=== PATIENT | female | born 1950 ===

== ENCOUNTER 2023-12-31 03:51 | Outpatient (RCR) | payer MEDICARE, OTHER, SELFPAY ==
--- OUTSIDE RECORDS SUMMARY | 2023-12-15 01:33 | XMS_ITS | Encounter Summary ---
Author [place] [address] Care Team Providers Care Mason Tender Name Role Phone Betzaida Avila MD Primary Care Provider +1 [phone] Reason for Referral * Consultation (Urgent) - Closed Specialty Diagnoses / Procedures Referred By Contac t Referred To Contact Hematology and Oncology Diagnoses Primary adenocarcinoma of ampulla of VatLoren Huerta MD [facility] [place] [address] [facility] [place] [address] [place] [address] Referral ID Status Reason Start Date Expiration Date V isits Requested Visits Authorized [id number] Closed Consult, Test & Treat 11/07/2023 11/06/2024 1 1 * Consultation (Urgent) - Closed Specialty Diagnoses / Procedures Referred By Contac t Referred To Contact General Surgery Diagnoses Primary adenocarcinoma of ampulla of VatLoren Huerta MD [facility] [place] [address] [facility] [address] [place] [address] Referral ID Status Reason Start Date Expiration Date V isits Requested Visits Authorized [id number] Closed Consult, Test & Treat 11/07/2023 11/06/2024 1 1 Encounter Details Date Type Department Care Team (Late st Contact Info) Description 11/07/2023 Telephone Gastroenterology at [facility] [place] [address] Loren Vallejo MD [facility] [place] [address] Social History Tobacco Use Types Packs/Day Years Used Date Smoking Tobacco: Former Cigarettes 1 10 Smokeless Tobacco: Never Alcohol Use Standard Drinks/Week Comments Yes 3 (1 standard drink = 0.6 oz pur e alcohol) 3 glasses daily Sex and Gender Information Value Date Recorded Sex Assigned at Not on file Gender Identity Not on file Sexual Orientation Not on file documented as of this encounter Miscellaneous Notes * Telephone Encounter - Loren Vallejo MD - 11/07/2023 10:09 AM EDT Called patient about patient's lymph node biopsies showing adenomacarinoma, 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 Discussed diagnosis, and will refer to surgery, heme onc, and plan to discuss in tumor board. All questions answered. documented in this encounter Plan of Treatment Upcoming Encounters Date Type Department Care Team (Late st Contact Info) Description 12/15/2023 9:00 AM EDT Infusion Hematology Oncology at [address] [phone] 12/26/2023 3:45 PM EDT Office Visit Dermatology at [place] [address] [place] [phone] Francesco Chen MD [address] [place] [address] 12/29/2023 11:30 AM EDT Office Visit Hematology/Oncology at [address] [phone] Yousif Garcia MD [facility] [place] [address] Julianna Cartwright APRN [address] [place] [address] DR HEMATOLOGY AND ONCOLOGY [place], [place] [address] 12/29/2023 12:00 PM EDT Infusion Hematology Oncology at [address] [phone] Scheduled Referrals Name Type Priority Associated Diagnoses Orde r Schedule Referral to General Surgery Outpatient Referral Urgent Primary adenocarcinoma of ampulla of Vater Ordered: 11/07/2023 Referral to Hematology and Oncology Outpatient Referral Urgent Primary adenocarcinoma of ampulla of Vater Ordered: 11/07/2023 documented as of this encounter Visit Diagnoses Diagnosis Primary adenocarcinoma of ampulla of Vater documented in this encounter Care Teams Mason Tender Relationship Specialty Start Date End Date Betzaida Avila MD [address] [place] [address] PCP - General Family Medicine 11/30/21 documented as of this encounter
--- OUTSIDE RECORDS SUMMARY | 2023-12-15 01:33 | XMS_ITS | Encounter Summary ---
[place] [address] Care Team Providers Care Buzzsaw Operator Name Role Phone Betzaida Avila MD Primary Care Provider [phone] [phone] Reason for Referral * Diagnostic Test (Routine) - Closed Specialty Diagnoses / Procedures Referred By Elisha fishman Referred To Contact Radiology Diagnoses Neoplasm of ampulla Procedures CT Chest wo Contrast (Generic) Fadi Willson MD [facility] [place] [address] [facility] [place] [address] Referral ID Status Reason Start Date Expiration Date V isits Requested Visits Authorized [id number] Closed Specialty Service Requested 11/17/2023 05/16/2025 1 1 Reason for Visit * Consultation (Urgent) - Closed Specialty Diagnoses / Procedures Referred By Elisha t Referred To Contact General Surgery Diagnoses Primary adenocarcinoma of ampulla of Vater Loren Vallejo MD [facility] [place] [address] [facility] Gen Surgery [address] [place] [address] Referral ID Status Reason Start Date Expiration Date V isits Requested Visits Authorized [id number] Closed Consult, Test & Treat 11/07/2023 11/06/2024 1 1 Encounter Details Date Type Department Care Team (Late st Contact Info) Description 11/17/2023 1:00 PM EDT Office Visit General Surgery at [place] [address] Fadi Willson MD [facility] [place] [address] Neoplasm of ampulla; Malignant neoplasm of duodenum Social History Tobacco Use Types Packs/Day Years [...] on file documented as of this encounter Last Filed Vital Signs Vital Sign Reading Time Taken Comments Blood Pressure 135/84 11/17/2023 12:48 PM EDT Pulse 77 11/17/2023 12:48 PM EDT Temperature - - Respiratory Rate 14 11/17/2023 12:4 8 PM EDT Oxygen Saturation 99% 11/17/2023 12: 48 PM EDT Inhaled Oxygen Concentration - - Weight 85.6 kg (188 lb 11.2 oz) 024 12:48 PM EDT Height 167.6 cm (5' 6) 11/17/2023 12:4 8 PM EDT Body Mass Index 30.46 11/17/2023 12:48 PM EDT documented in this encounter Progress Notes * Fadi Willson MD - 11/17/2023 1:00 PM EDT Images from the original note were not included. Department of General Surgery Surgical Oncology Consultation Note CC: ampullary adenocarcinoma I am seeing Prerna Ascenciorey in consultation for ampullary adenocarcinoma, she was referred to me by Dr. Loren Vallejo. In preparation for today's visit I have reviewed the following, notes from Dr. Lee/Yoni, CT scan abdomen and pelvis 10/30/2020, MRI abdomen 11/01/2023, EUS/ERCP 11/02/2023, and pathology results. I have also ordered a CT of the chest. HPI: Prerna Perez is a 73 y.o. with significant medical comorbidities. Briefly, the patient noted darker urine some mild back pain and dizziness for which she called her PCPs office. She was encouraged to come in for labs. Ultimately the dizziness persisted and she she presented to [place] on 11/01/23. There labs were notable for a T bilirubin of 4.5, alk phos 652, AST/ALT to 199/388 as well as lipase to 395. Given this she had additional imaging including a CT scan of the abdomen and pelvis which noted a double duct sign. Given this she had a subsequent MRI which again noted dilation of the common bile duct as well as the pancreas duct. She was referred to GI for advanced endoscopy. On endoscopy she was noted to have an ulcerating mass at the ampulla with upstream bile duct and PD dilation. A biopsy of the mass as well as the lymph node was obtained which is positive for malignancy.An ERCP was also performed and a plastic stent was placed into the common bile duct. Prerna denies being jaundiced or though she does report that she noted some pruritus at her abdomen and a mild ache in her back. She denies a prior episodes of pancreatitis. Denies any unintentional weight loss. PMHx: Hypothyroidism Gout PSHx: No prior abdominal surgeries ALL: No Known Allergies MED: cholecalciferol, Vitamin D3, 25 mcg (1,000 unit) Capsule alendronate (Fosamax) 70 mg tablet allopurinoL (Zyloprim) 100 mg Tablet famotidine (Pepcid) 40 mg Tablet Euthyrox 137 mcg Tablet multivitamin Capsule Social history: Former smoker Drinks a glass of wine with dinner, has not had any EtOH since she presented to the ED in [place] Family history: Breast cancer in sister No GI malignancies ROS: As stated above, otherwise remainder of 10-point system review is negative Physical Exam: General: NAD, pleasant, conversant Pulm: non labored breathing on RA Abd: soft, nontender, nondistended Skin: warm, dry Ext: no cyanosis, cap refill <2sec Neuro: grossly intact, nonfocal MSK: 5/5 strength Imaging: CT abdomen pelvis 11/01/2023 IMPRESSION 1. Suspected ampullary lesion with resulting double ductal dilation. 2. Subcentimeter short axis peripancreatic, marc hepatis, portacaval and aortocaval lymphadenopathy. 3. Acute versus chronic cholecystitis. Clinical and serologic correlation suggested. 4. Unexpected findings: 5.2 cm cystic lesion left adnexa. 12 mm hypodense distention endometrial cavity. Nonemergent outpatient sonographic correlation suggested. I have personally reviewed the images, there is a double duct sign Pathology: Positive for malignancy Endoscopy A 2 cm hypoechoic round mass was identified endosonographically encompassing the ampulla, with upstream dilation of the bile duct and pancreatic duct. Labs: CEA 2.3 CA 19-9 33.8 Assessment and Plan: Prerna Perez is a 73 y.o. 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 Her tumor markers are in a normal range. She needs a CT chest to complete her staging and Ih[place]ayne ordered that, and it will happen later today. We discussed that if there is no evidence of metastatic disease then treatment would be a whipple procedure. I gera pictures to explain to Prerna andher sister Chelsea what this would entail. Prerna had not heard of the procedure and ask appropriate questions. Given that the pt needs additional staging and this was the first time she heard about theprocedure. I will see her next week, to discuss the CT chest findings and to review the treatment plan. This will allow Prerna to think about the implication of surgery and allow her to process our discuss and come up with questions. -CT chest later today. - f/u in clinic next week. Please excuse any typographical and/or grammatical errors, dragon dictation was used to complete this note. Fadi Willson MD, MS Surgical Oncology documented in this encounter Plan of Treatment Upcoming Encounters Date Type Department Care Team (Late st Contact Info) Description 12/15/2023 9:00 AM EDT Infusion Hematology Oncology at [address] [phone] 12/26/2023 3:45 PM EDT Office Visit Dermatology at [place] [address] [facility] [place] [address] Francesco Chen MD [address] [facility] [place] [address] 12/29/2023 11:30 AM EDT Office Visit Hematology/Oncology at [address] [phone] Yousif Garcia MD [facility] [place] [address] Julianna Cartwright APRN [address] [place] [address] DR HEMATOLOGY AND ONCOLOGY [place], [place] [id number] 12/29/2023 12:00 PM EDT Infusion Hematology Oncology at [address] [phone] documented as of this encounter Results * (ABNORMAL) Request For 2nd Read CT Abdomen & Pelvis (11/17/2023 6:46 PM EDT) [employer] WORKSTATION ID [id number] RAD Anatomical Region Laterality Modality Abdomen, Pelvis SO Impressions 11/18/2023 9:36 AM EDT 1. ??Suspected ampullary lesion with resulting double ductal dilation. 2. ??Subcentimeter short axis peripancreatic, marc hepatis, portacaval and aortocaval lymphadenopathy. 3. ??Acute versus chronic cholecystitis. Clinical and serologic correlation suggested. 4. ??Unexpected findings: 5.2 cm cystic lesion left adnexa. 12 mm hypodense distention endometrial cavity. Nonemergent outpatient sonographic correlation suggested. Thank you for letting us participate in the care of this patient. ??If you are a health care provider and have any questions regarding this report, please contact the number below. ??For patients who have questions please contact the health home care manager rn that requested your imaging first. ? Narrative 11/18/2023 9:36 AM EDT EXAMINATION: REQUEST FOR 2ND READ CT ABDOMEN AND PELVIS CLINICAL HISTORY: Pt with ampullary adenocarcinoma, staging scan; Sending Institution [facility]; Date of exam [id number]; I believe a reinterpretation of this exam may alter care of Patient. Yes D49.0, Neoplasm of unspecified behavior of digestive system TECHNIQUE: Helical CT of the abdomen and pelvis following the intravenous administration of contrast. 100 cc Isovue-300 intravenous contrast. Oral contrast was not administered. Study performed October 31, 2023 [facility]. COMPARISON: None FINDINGS: Lower chest: No nodule nor mass. No pleural effusion. Liver: Normal size and attenuation without lesions. Bile ducts: Biliary dilation. Mural enhancement. Gallbladder: Mural thickening and pericholecystic stranding. Pancreas: Central pancreatic duct dilation Spleen: Normal. Adrenals: Normal. Kidneys: Symmetric nephrograms. No collecting system dilation. Indeterminate left interpolar hypodense lesion did not show enhancement on subsequent MRI consistent with a proteinaceous or hemorrhagic cyst. Urinary Bladder: Normal. Vasculature: Normal caliber abdominal aorta. Patent renal, hepatic and portal veins. Lymph Nodes: Subcentimeter short axis peripancreatic, marc hepatis, portacaval and aortocaval lymphadenopathy. Bowel: Poorly defined minimally hyperdense fullness in the ampullary region is concerning for obstructing lesion. Diverticulosis without acuity. Peritoneum and retroperitoneum: No free fluid or loculated fluid collection. No pneumoperitoneum. No mesenteric inflammation. Abdominal wall: No muscular asymmetry Reproductive organs: 5.2 cm cystic lesion left adnexa. 12 mm hypodense distention endometrial cavity. Osseous structures: Compression deformity at T9 with central sclerosis may reflect chronicity. No suspicious osseous lesion. Resulting Agency Comment Unexpected Finding Fadi Willson MD IMG OUTSIDE INTERPRE TATION ORDERABLES * CT Chest wo Contrast (Generic) (11/17/2023 3:09 PM EDT) WORKSTATION ID [id number] RAD Anatomical Region Laterality Modality Chest Computed Tomogra phy Impressions 11/20/2023 11:32 AM EDT 1. ??Left supraclavicular lymphadenopathy 2. ??Dilated ascending aorta measuring 4 cm I have personally reviewed the image(s) and the resident's interpretation and agree with the findings, Elroy Mishra MD at 11/20/2023 11:32 AM Thank you for letting us participate in the care of this patient. ??If you are a health care provider and have any questions regarding this report, please contact the number below. ??For patients who have questions please contact the health home care manager rn that requested your imaging first. ? Narrative 11/20/2023 11:32 AM EDT EXAMINATION: CT CHEST WO CONTRAST (GENERIC) CLINICAL HISTORY: Ampullary adenocarcinoma, staging TECHNIQUE: Helical CT of the chest without intravenous contrast administration. Thin-section reconstructions as well as coronal and sagittal reformatted images were generated. COMPARISON: CT abdomen and pelvis 10/31/2023 FINDINGS: Pulmonary parenchyma: No lung nodules. Airways: No central endobronchial abnormality. Pleura: No effusion. Lymph nodes: There is a 10 mm left supraclavicular lymph node Heart and vasculature: Normal heart size. No pericardial effusion. The mid ascending aorta measures 4 cm. Upper abdomen: Partially visualized CBD stent. Skeletal structures: No suspicious osseous lesion. T9 vertebral body wedge deformity, present on comparison CT of 10/31/2023. No interval retropulsion. Procedure Note Elroy Mishra MD - 11/20/2023 EXAMINATION: CT CHEST WO CONTRAST (GENERIC) CLINICAL HISTORY: Ampullary adenocarcinoma, staging TECHNIQUE: Helical CT of the chest without intravenous contrastadministration. Thin-section reconstructions as well as coronal and sagittal reformattedimages were generated. COMPARISON: CT abdomen and pelvis 10/31/2023 FINDINGS: Pulmonary parenchyma: No lung nodules. Airways: No central endobronchial abnormality. Pleura: No effusion. Lymph nodes: There is a 10 mm left supraclavicular lymph node Heart and vasculature: Normal heart size. No pericardial effusion. Themid ascending aorta measures 4 cm. Upper abdomen: Partially visualized CBD stent. Skeletal structures: No suspicious osseous lesion. T9 vertebral bodywedge deformity, present on comparison CT of 10/31/2023. No intervalretropulsion. IMPRESSION 1. Left supraclavicular lymphadenopathy 2. Dilated ascending aorta measuring 4 cm I have personally reviewed the image(s) and the resident's interpretationand agree with the findings, Elroy Mishra MD at 11/20/2023 11:32 AM Thank you for letting us participate in the care of this patient. If youare a health care provider and have any questions regarding this report,please contact the number below. For patients who have questions please contactthe health home care manager rn that requested your imaging first. Fadi Willson MD IMG CT ORDERABLES * CEA (11/17/2023 12:29 PM EDT) Carcinoembryonic Antigen 2.3 <=3.8 ng/ml 11/17/2023 1:19 PM EDT [facility] Comment: Some smokers may have elevated CEA, generally < 5.5 ng/mL. This result was generated using a Connor Yamila immunoassay. ??Results obtained from other methods or manufacturers cannot be used interchangeably with this method. Blood VENOUS BLOOD SPECIMEN / Unknown Venipuncture / Unknown 11/17/2023 12:29 PM EDT 11/17/2023 12:29 PM EDT Fadi Willson MD CHEMISTRY ORDERABLES [facility] [place] [address] documented in this encounter Visit Diagnoses Diagnosis Neoplasm of ampulla Neoplasm of unspecified nature of digestive system Malignant neoplasm of duodenum Neoplasm of ampulla Neoplasm of unspecified nature of digestive system Neoplasm of ampulla Neoplasm of unspecified nature of digestive system documented in this encounter Care Teams Buzzsaw Operator Relationship Specialty Start Date End Date Betzaida Avila MD [address] [place] [address] PCP - General Family Medicine 11/30/21 documented as of this encounter
--- OUTSIDE RECORDS SUMMARY | 2023-12-15 01:33 | XMS_ITS | Encounter Summary ---
Author Organization [facility] [place] [address] Care Team Providers Care Broomcorn Scraper Name Role Phone Betzaida Avila MD Primary Care Provider [phone] Encounter Details Date Type Department Care Team (Latest Contact Info) Description 11/17/2023 Travel Social History Tobacco Use Types Packs/Day Years [...] on file documented as of this encounter Plan of Treatment Upcoming Encounters Date Type Department Care Team (Late st Contact Info) Description 12/15/2023 9:00 AM EDT Infusion Hematology Oncology at [address] [phone] 12/26/2023 3:45 PM EDT Office Visit Dermatology at [address] [place] [phone] Francesco Chen MD [address] [facility] [place] [address] 12/29/2023 11:30 AM EDT Office Visit Hematology/Oncology at [address] [phone] Yousif Garcia MD [facility] [place] [address] Julianna Cartwright APRN [address] [place] [address] DR HEMATOLOGY AND ONCOLOGY [place], [place] [id number] 12/29/2023 12:00 PM EDT Infusion Hematology Oncology at [address] [phone] documented as of this encounter Visit Diagnoses Not on filedocumented in this encounter Care Teams Broomcorn Scraper Relationship Specialty Start Date End Date Betzaida Avila MD [address] [place] [id number] PCP - General Family Medicine 11/30/21 documented as of this encounter
--- OUTSIDE RECORDS SUMMARY | 2023-12-15 01:33 | XMS_ITS | Encounter Summary ---
[place] [address] Care Team Providers Care Security Delivery Specialist Name Role Phone Betzaida Avila MD Primary Care Provider [phone] Reason for Referral * Diagnostic Test (Routine) - Closed Specialty Diagnoses / Procedures Referred By Contac t Referred To Contact Radiology Diagnoses Neoplasm of ampulla Procedures CT Chest wo Contrast (Generic) Fadi Willson MD [facility] [address] [facility] [place] [address] Referral ID Status Reason Start Date Expiration Date V isits Requested Visits Authorized [id number] Closed Specialty Service Requested 11/17/2023 05/16/2025 1 1 Reason for Visit * Diagnostic Test (Routine) - Closed Specialty Diagnoses / Procedures Referred By Contac t Referred To Contact Radiology Diagnoses Neoplasm of ampulla Procedures CT Chest wo Contrast (Generic) Fadi Willson MD [facility] [address] [facility] [place] [address] Referral ID Status Reason Start Date Expiration Date V isits Requested Visits Authorized [id number] Closed Specialty Service Requested 11/17/2023 05/16/2025 1 1 Encounter Details Date Type Department Care Team (Latest Contact Info) Description 11/17/2023 3:00 PM EDT - 11/17/2023 11:59 PM EDT Hospital [place] [address] Fadi Willson MD [facility] [place] [address] Neoplasm of ampulla Discharge Disposition: Home Social History Tobacco Use Types Packs/Day Years [...] on file documented as of this encounter Medications at Time of Discharge Medication Sig Dispensed Refills Start Date End Date cholecalciferol, Vitamin D3, 25 mcg (1,000 unit) Capsule Take 1,000 each by mouth daily. alendronate (Fosamax) 70 mg tablet Take 70 mg by mouth every 7 days. Take in AM with full glass of water, on an empty stomach. Do not lie down for 30 min. allopurinoL (Zyloprim) 100 mg Tablet TAKE 2 TABLETS BY MOUTH ONCE DAILY FOR GOUT PREVENTION 09/18/2019 famotidine (Pepcid) 40 mg Tablet Take 20 mg by mouth 2 times daily. 09/20/2019 Euthyrox 137 mcg Tablet TAKE 1 TABLET BY MOUTH ONCE DAILY FOR THYROID 11/04/2019 multivitamin Capsule Take 1 capsule by mouth three times a week (Mon, Weds, Fri). documented as of this encounter Plan of Treatment Upcoming Encounters Date Type Department Care Team (Late st Contact Info) Description 12/15/2023 9:00 AM EDT Infusion Hematology Oncology at [address] [phone] 12/26/2023 3:45 PM EDT Office Visit Dermatology at [place] [address] [facility] [place] [address] Francesco Chen MD [address] [place] [address] 12/29/2023 11:30 AM EDT Office Visit Hematology/Oncology at [address] [phone] Yousif Garcia MD [facility] [place] [address] Julianna Cartwright APRN [address] [place] [address] DR HEMATOLOGY AND ONCOLOGY [place], [place] [id number] 12/29/2023 12:00 PM EDT Infusion Hematology Oncology at [address] [phone] documented as of this encounter Procedures Procedure Name Priority Date/Time Associated Diagnosis Comments CT CHEST WO CONTRAST (GENERIC) Routine 11/17/2023 3:09 PM EDT Neoplasm of ampulla documented in this encounter Results * CT Chest wo Contrast (Generic) (11/17/2023 3:09 PM EDT) [employer] WORKSTATION ID [id number] RAD Anatomical Region Laterality Modality Chest Computed [...] who have questions please contact the health behavioral health care manager that requested your imaging first. ? Narrative [...] patients who have questions please contactthe health behavioral health care manager that requested your imaging first. Fadi Willson MD IMG CT ORDERABLES documented in this encounter Visit Diagnoses Diagnosis Neoplasm of ampulla Neoplasm of unspecified nature of digestive system documented in this encounter Care Teams Security Delivery Specialist Relationship Specialty Start Date End Date Betzaida Avila MD [address] [place] [address] PCP - General Family Medicine 11/30/21 documented as of this encounter
--- OUTSIDE RECORDS SUMMARY | 2023-12-15 01:33 | XMS_ITS | Clinical Summary ---
Author Organization [facility] Address [facility] [place] [address] Care Team Providers Care Chief Nurse Executive Name Role Phone Betzaida Avila MD Primary Care Provider [phone] Allergies No known active allergies Medications Medication Sig Dispensed Refills Start Date End Date Status multivitamin Capsule Take 1 capsule by mouth three times a week (Mon, Weds, Fri). Active allopurinoL (Zyloprim) 100 mg Tablet TAKE 2 TABLETS BY MOUTH ONCE DAILY FOR GOUT PREVENTION 09/18/2019 Active famotidine (Pepcid) 40 mg Tablet Take 20 mg by mouth 2 times daily. 09/20/2019 Active Euthyrox 137 mcg Tablet TAKE 1 TABLET BY MOUTH ONCE DAILY FOR THYROID 11/04/2019 Active cholecalciferol, Vitamin D3, 25 mcg (1,000 unit) Capsule Take 1,000 each by mouth daily. Active alendronate (Fosamax) 70 mg tablet Take 70 mg by mouth every 7 days. Take in AM with full glass of water, on an empty stomach. Do not lie down for 30 min. Active prochlorperazine (Compazine) 10 mg tabletIndications:Pr imary adenocarcinoma of ampulla of Vater,Drug-induced nausea and vomiting Take 1 tablet by mouth every 6 hours as needed for Nausea. 20 tablet 5 12/12/2023 Active ondansetron (Zofran) 8 mg tabletIndications:Pr imary adenocarcinoma of ampulla of Vater,Drug-induced nausea and vomiting Take 1 tablet by mouth every 8 hours as needed for Nausea. Do not take for 3 days after chemotherapy 20 tablet 3 12/12/2023 Active Active Problems Problem Noted Date Diagnosed Date Metastatic adenocarcinoma 12/12/2023 Chest pain 04/25/2014 Diverticulosis of both small and large intestine without perforation or abscess without bleeding 04/25/2014 Gout, unspecified 04/25/2014 Osteopenia 04/25/2014 Hypothyroidism 04/25/2014 Primary adenocarcinoma of ampulla of Vater Encounters Date Type Department Care Team Description 12/15/2023 9:00 AM EDT Infusion Hematology Oncology at [address] [phone] 12/13/2023 Refill Hemat[place] [address] Chery Stahl RN 12/12/2023 11:00 AM EDT Office Visit Hemat[place] [phone] Yousif Garcia MD Primary adenocarcinoma of ampulla of Vater; Drug-induced nausea and vomiting 12/12/2023 10:00 AM EDT Office [place] [phone] Fadi Willson MD Metastatic adenocarcinoma; Primary adenocarcinoma of ampulla of Vater 12/12/2023 Travel 12/08/2023 12:56 PM EDT - 12/08/2023 11:59 PM EDT Hospital Encounter [place] [phone] Luis Rosas MD Arrived Discharge Disposition: Home 12/08/2023 12:17 PM EDT - 12/08/2023 12:55 PM EDT Hospital Encounter [place] [phone] Luis Rosas MD Ampullary carcinoma Discharge Disposition: Home 12/08/2023 9:28 AM EDT - 12/08/2023 12:16 PM EDT Hospital [place] [address] Luis Rosas MD Ampullary carcinoma Discharge Disposition: Home 12/08/2023 Travel 12/07/2023 Orders Only Hematology [place] [address] Yousif Garcia MD 12/06/2023 Notes Only Hematology and Oncology at [place] [phone] Alee Connelly, [facility] 11/29/2023 9:00 AM EDT Telephone Hematology [place] [address] Мария Murphy, RD 11/28/2023 1:00 PM EDT TH Visit (TeleHealth) General Surgery at [place] [phone] Fadi Willson MD Ampullary carcinoma 11/28/2023 Orders Only Hematology [place] [address] Luis Rosas MD Ampullary carcinoma 11/28/2023 Orders Only [place]emat[place] [address] Luis Rosas MD Ampullary carcinoma 11/24/2023 12:20 PM EDT Office [place] [address] Naheed Garcia MD Left cervical lymphadenopathy 11/24/2023 11:55 AM EDT Laboratory Appointment Lab [address] [address] Ampullary carcinoma 11/24/2023 Travel 11/22/2023 Orders Only [place]emat[place] [address] Luis Rosas MD Ampullary carcinoma 11/21/2023 9:30 AM EDT Office [place] [address] Fadi Willson MD Primary adenocarcinoma of ampulla of Vater 11/21/2023 Travel 11/17/2023 7:00 PM EDT Ancillary Procedure Radiology Library at [facility] [place] [address] Fadi Willson MD Neoplasm of ampulla 11/17/2023 3:00 PM EDT - 11/17/2023 11:59 PM EDT Hospital Encounter CT Scan at [place] [phone] Fadi Willson MD Neoplasm of ampulla Discharge Disposition: Home 11/17/2023 1:00 PM EDT Office Visit General Surgery at [place] [phone] Fadi Willson MD Neoplasm of ampulla; Malignant neoplasm of duodenum 11/17/2023 12:23 PM EDT - 11/17/2023 2:59 PM EDT Hospital Encounter Hematology and Oncology at [place] [phone] Ampullary carcinoma; Neoplasm of ampulla; Malignant neoplasm of duodenum Discharge Disposition: Home 11/17/2023 11:00 AM EDT Office Visit H[place] [address] Luis Rosas MD Ampullary carcinoma 11/17/2023 10:00 AM EDT Ancillary Procedure Radiology Library at [facility] [place] [address] Luis Rosas MD Ampullary carcinoma 11/17/2023 Travel 11/07/2023 Telephone Gastroenterology at [place] [phone] Loren Vallejo MD 11/02/2023 1:09 PM EDT Anesthesia Event Gastroenterology at [place] [phone] Isma Espinoza MD 11/02/2023 1:00 PM EDT - 11/02/2023 2:30 PM EDT Surgery Gastroenterology at [place] [phone] Ferdinand Lee MD UPPER EUS- ENDOSCOPIC ULTRASOUND (WRVU 3.47) 11/02/2023 12:15 PM EDT Ancillary Procedure Gastroenterology at [facility] [place] [address] 11/02/2023 11:56 AM EDT - 11/02/2023 3:44 PM EDT Hospital Encounter Gastroenterology at [facility] [place] [address] Ferdinand Lee MD Discharge Disposition: Home 11/02/2023 Notes Only Gastroenterology at [facility] [place] [address] Loren Vasquez 11/01/2023 11:45 AM EDT Ancillary Procedure Radiology Library at [facility] [place] [address] Unknown 11/01/2023 Tele[place] [address] Kathy Pena MD 11/01/2023 Interpretation Only Radiology Library at [facility] [place] [address] Unknown 10/31/2023 9:15 PM EDT Ancillary Procedure Radiology Library at [facility] [place] [address] Unknown 10/31/2023 Interpretation Only Radiology Library at [facility] [place] [address] Unknown from Last 3 Months Family History Medical History Relation Comments Mental Illness Brother Coronary Artery Disease Father Coronary Artery Disease Mother Dementia Mother Diabetes Mother Glaucoma Mother Alcohol Use Disorder Sister 1 Breast Cancer Sister 2 Relation Status Comments Brother Father Mother Alive Sister 1 Sister 2 Alive Sister 3 Alive Social History Tobacco Use Types Packs/Day Years Used Date Smoking Tobacco: Former Cigarettes 1 10 Smokeless Tobacco: Never Tobacco Cessation:Counseling Given: Not Answered Alcohol Use Standard Drinks/Week Comments Not Currently 0 (1 standard drink = 0.6 oz pur e alcohol) Sex and Gender Information Value Date Recorded Sex Assigned at Not on file Gender Identity Not on file Sexual Orientation Not on file Last Filed Vital Signs Vital Sign Reading Time Taken Comments Blood Pressure 126/86 12/12/2023 10:45 AM EDT Pulse 85 12/12/2023 10:45 AM EDT Temperature 36.7 ??C (98.1 ??F) 12/12/2023 10:45 AM E DT Respiratory Rate 17 12/12/2023 10:45 AM EDT Oxygen Saturation 97% 12/12/2023 10:45 AM EDT Inhaled Oxygen Concentration - - Weight 83.5 kg (184 lb 1.4 oz) 12/12/2023 10:45 AM EDT Height 167 cm (5' 5.75) 12/12/2023 10:45 AM EDT Body Mass Index 29.94 12/12/2023 10:45 AM EDT Plan of Treatment Upcoming Encounters Date Type Department Care Team (Late st Contact Info) Description 12/15/2023 9:00 AM EDT Infusion Hematology Oncology at [address] [phone] 12/26/2023 3:45 PM EDT Office Visit Dermatology at [address] [place] [address] Francesco Chen MD [address] [place] [address], [place] [address] 12/29/2023 11:30 AM EDT Office Visit Hematology/Oncology at [address] [phone] Yousif Garcia MD [facility] [place] [address] Julianna Cartwright APRN [address] [place] [address] DR HEMATOLOGY AND ONCOLOGY [place], [place] [address] 12/29/2023 12:00 PM EDT Infusion Hematology Oncology at [address] [phone] Health Maintenance Due Date Last Done Comments CT Colonography 1948 Colonoscopy 1948 Colorectal Cancer Screening 1948 FIT DNA 1948 FIT 1948 Sigmoidoscopy (10 year) with FIT yearly 1948 Sigmoidoscopy 1948 Hepatitis C Screening 1966 Tetanus/Diphtheria/Pertussis Vaccines (1 - Tdap) 03/08 Zoster vaccine (1 of 2) 1998 Advance Directive 2003 Bone Density Scan 2013 Pneumoccocal Vaccine: 65+ (1 of 1 - PCV) 2013 Covid-19 Vaccine (1 - 2022-24 season) 2023 Influenza (Flu) vaccine (1 o f 1 - Influenza standard series) 11/12/2023 Medical Devices Implanted Type Area Silverware Etcher Device Identifier Shelf Expiration Date Model / Serial / Lot Stent Advanix [id number] Rx Plastic Duodenal Bend ([id number]) - [id number] Implanted:Qty: 1 on 11/02/2023 by Ferdinand Lee MD [facility] IMPLANTS N/A: Bile Duct Narrable - myGreek [id number] 09/04/2024 [id number] / / [id number] Port Infusion 8fr Cath Power Injectable Midsize Shaped ([id number])-12/07 Implanted:Qty: 1 on 12/08/2023 by Christian Lara PA IMPLANTS Right: Chest Wall [employer] - [employer] [place] 12/07/2028 [id number] / [id number] / [id number] Description:RIGHT 8FR MID PO RT Procedures Procedure Name Priority Date/Time Associated Diagnosis Comments NM PET CT SKULL BASE TO MID-THIGH ([facility]) Routine 12/08/2023 1:22 PM EDT Ampullary carcinoma POC, GLUCOSE Routine 12/08/2023 11:56 AM EDT IR MEDIPORT PLACEMENT Routine 12/08/2023 11:36 AM EDT Ampullary carcinoma CYTOLOGY FNA OTHER THAN THYROID Routine 11/24/2023 12:52 PM EDT Left cervical lymphadenopathy CYTOLOGY FNA Routine 11/24/2023 12:52 PM EDT Left cervical lymphadenopathy PGX ONCOLOGY Routine 11/24/2023 10:53 AM EDT Ampullary carcinoma REQUEST FOR 2ND READ CT ABDOMEN AND PELVIS Routine 11/17/2023 6:46 PM EDT Neoplasm of ampulla CT CHEST WO CONTRAST (GENERIC) Routine 11/17/2023 3:09 PM EDT Neoplasm of ampulla CEA Add-On 11/17/2023 12:29 PM EDT Neoplasm of ampulla Malignant neoplasm of duodenum CARBOHYDRATE ANTIGEN 19-9 Routine 11/17/2023 12:29 PM EDT Ampullary carcinoma COMPREHENSIVE METABOLIC PANEL Routine 11/17/2023 12:29 PM EDT Ampullary carcinoma CBC (WITH DIFF) Routine 11/17/2023 12:29 PM EDT Ampullary carcinoma REQUEST FOR 2ND READ MR ABDOMEN Routine 11/17/2023 9:59 AM EDT Ampullary carcinoma XR ERCP Routine 11/02/2023 3:02 PM EDT SURGICAL PATHOLOGY Routine 11/02/2023 2: 34 PM EDT CYTOLOGY FNA OTHER THAN THYROID Routine 11/02/2023 2:16 PM EDT CYTOLOGY FNA Routine 11/02/2023 2:16 PM EDT Upper Gi Endoscopy, Biopsy ([id number]) 11/02/2023 1:37 PM EDT Jaundice, dilated bile duct bacl and forth Njx Cholangio Prq W/Img Gid Rs&I New Access ([id number]) 11/02/2023 1:37 PM EDT Jaundice, dilated bile duct bacl and forth Ercp, Sphincterotomy ([id number]) 11/02/2023 1:37 PM EDT Jaundice, dilated bile duct bacl and forth Ercp Stent Placement Biliary Or Pancreatic Duct([id number]) 11/02/2023 1:37 PM EDT Jaundice, dilated bile duct bacl and forth Fine Needle Aspiration Bx W/Us Gdn 1St Lesion (04156) 11/02/2023 1:37 PM EDT Jaundice, dilated bile duct bacl and forth Ercp, Diagnostic ([id number]) 11/02/2023 1:37 PM EDT Jaundice, dilated bile duct bacl and forth Endoscopic Us Exam, Esoph ([id number]) 11/02/2023 1:37 PM EDT Jaundice, dilated bile duct bacl and forth ERCP Routine 11/02/2023 1:08 PM EDT UPPER EUS-ENDOSCOPIC ULTRASOUND Routine 11/02/2023 12:56 PM EDT FILM LIBRARY STORAGE ONLY MR ABDOMEN Routine 11/01/2023 11:45 AM EDT FILM LIBRARY STORAGE ONLY CT ABDOMEN AND PELVIS Routine 10/31/2023 9:15 PM EDT from Last 3 Months Results * NM PET CT Skull Base to Mid-thigh (12/08/2023 1:22 PM EDT) WORKSTATION ID [id number] DH RAD Anatomical Region Laterality Modality Positron Emissio n Tomography (PET) Impressions 12/12/2023 9:53 AM EDT 1. ??FDG avid ampullary malignancy. 2. ??Aortocaval and precaval raul metastases. 3. ??Biopsy-proven left supraclavicular raul metastasis. 4. ??Multiple small FDG avid bilateral level 1B and level 2 lymph nodes which are favored benign reactive nodes. Additional small raul metastases cannot be excluded. Attention on follow-up recommended 5. ??Left ovarian 4.8 cm cystic lesion. Based on patient age and lesion size, consider further characterization with transvaginal ultrasound. I have personally reviewed the image(s) and the resident's interpretation and agree with the findings, Cy Roberts MD at 12/12/2023 9:53 AM Thank you for letting us participate in the care of this patient. ??If you are a health care provider and have any questions regarding this report, please contact the number below. ??For patients who have questions please contact the health nurse wound care that requested your imaging first. ? Electronically signed by: Cy Roberts MD, [facility] ([phone]), at 12/12/2023 9:53 AM Narrative 12/12/2023 9:53 AM EDT EXAMINATION: NM PET CT STANDARD SKULL BASE TO MID-THIGH CLINICAL HISTORY: Ampullary carcinoma with one proven metastasis (left supraclavicular lymph node, an ultrasound-guided biopsy 11/24/2023). ??Is this oligometastatic disease?. Initial staging exam. C24.1, Malignant neoplasm of ampulla of Vater TECHNIQUE: Following IV injection of 49-mzelrp-8-deoxyglucose (FDG) a standard uptake of approximately 60 minutes, a noncontrast CT scan followed by a PET scan were acquired from the base of the skull to mid thighs. The noncontrast CT was used for anatomic localization and photon attenuation correction of the PET scan. Blood glucose level: 104 (mg/dL) FDG dose: 12.7 mCi COMPARISON: CT abdomen pelvis 10/31/2023. MRI abdomen 11/01/2023. CT chest 11/17/2023. FINDINGS: HEAD/NECK: FDG avid 1.7 cm left supra clavicular lymph node. Multiple small FDG avid lymph nodes in the bilateral level 1B and bilateral level 2 raul stations. CHEST: No suspicious lung nodule or adenopathy. Right chest port tip at the superior right atrium. Aortic calcifications. ABDOMEN/PELVIS: Large FDG avid soft tissue mass in the ampullary region which exerts mass effect upon the infrahepatic IVC. CBD stent in place. Multiple FDG avid precaval and aortocaval lymph nodes (images 138-175) with health and safety representative aortocaval node measuring 2.6 cm (image 147). Small hiatal hernia. Left ovarian 4.8 cm cystic lesion, present on CT of 10/31/2023 and out of the szoep-go-xctf on MRI of 11/01/2023. SKELETON/EXTREMITIES: Normal activity in all regions of the axial and visualized appendicular skeleton. Non-FDG avid T9 anterior wedge compression fracture with at least 50% height loss, unchanged from CT of 11/17/2023. Procedure Note Cy Roberts MD - 12/12/2023 EXAMINATION: NM PET CT STANDARD SKULL BASE TO MID-THIGH CLINICAL HISTORY: Ampullary carcinoma with one proven metastasis (left supraclavicular lymph node, an ultrasound-guided biopsy 11/24/2023). Isthis oligometastatic disease?. Initial staging exam. C24.1, Malignant neoplasm of ampulla of Vater TECHNIQUE: Following IV injection of 76-zwxuub-6-deoxyglucose (FDG) astandard uptake of approximately 60 minutes, a noncontrast CT scan followed by aPET scan were acquired from the base of the skull to mid thighs. The noncontrast CTwas used for anatomic localization and photon attenuation correction of thePET scan. Blood glucose level: 104 (mg/dL) FDG dose: 12.7 mCi COMPARISON: CT abdomen pelvis 10/31/2023. MRI abdomen 11/01/2023. CT chest 11/17/2023. FINDINGS: HEAD/NECK: FDG avid 1.7 cm left supra clavicular lymph node. Multiple small FDG avid lymph nodes in the bilateral level 1B andbilateral level 2 raul stations. CHEST: No suspicious lung nodule or adenopathy. Right chest port tip at the superior right atrium. Aorticcalcifications. ABDOMEN/PELVIS: Large FDG avid soft tissue mass in the ampullary region which exerts masseffect upon the infrahepatic IVC. CBD stent in place. Multiple FDG avid precaval and aortocaval lymph nodes (images 138-175)with health and safety representative aortocaval node measuring 2.6 cm (image 147). Small hiatal hernia. Left ovarian 4.8 cm cystic lesion, present on CT of 10/31/2023 and out ofthe eerut-ct-dzbo on MRI of 11/01/2023. SKELETON/EXTREMITIES: Normal activity in all regions of the axial and visualized appendicular skeleton. Non-FDG avid T9 anterior wedge compression fracture with at least 50%height loss, unchanged from CT of 11/17/2023. IMPRESSION 1. FDG avid ampullary malignancy. 2. Aortocaval and precaval raul metastases. 3. Biopsy-proven left supraclavicular raul metastasis. 4. Multiple small FDG avid bilateral level 1B and level 2 lymph nodeswhich are favored benign reactive nodes. Additional small raul metastases cannotbe excluded. Attention on follow-up recommended 5. Left ovarian 4.8 cm cystic lesion. Based on patient age and lesionsize, consider further characterization with transvaginal ultrasound. I have personally reviewed the image(s) and the resident's interpretationand agree with the findings, Cy Roberts MD at 12/12/2023 9:53 AM Thank you for letting us participate in the care of this patient. If youare a health care provider and have any questions regarding this report,please contact the number below. For patients who have questions please contactthe health nurse wound care that requested your imaging first. Luis Rosas MD IMG PET ORDERABLE S * POC, GLUCOSE (12/08/2023 11:56 AM EDT) Glucometer, POC 104 65 - 199 mg/dL 12/08/2023 11:57 AM EDT [facility] Comment:Supplemental ranges: <140 mg/dL before meals <180 mg/dL all other times of the day. Blood CAPILLARY BLOOD / Unknown 12/08/2023 11:56 AM EDT 12/08/2023 11:57 AM EDT Luis Rosas MD POINT OF CARE HERMELINDA T ORDERABLES [facility] [place] [address] * IR Mediport Placement (12/08/2023 11:36 AM EDT) Anatomical Region Laterality Modality X-Ray Angiograph y Narrative 12/08/2023 12:01 PM EDT Interventional Radiology Procedure Note Procedure: Chest port implant Indication: Ampullary carcinoma, durable alf central venous access for chemotherapy Procedure summary: 1.) Venous access with ultrasound guidance 2.) Tunneled port insertion under fluoroscopic guidance Pre-procedure: Informed consent for the procedure including risks, benefits, and alternatives was obtained. Active time-out was performed prior to the procedure. Maximum sterile barrier technique was used throughout the procedure. Sedation: None Technique: The patient's neck was sonographically evaluated for potential access sites, and the right internal jugular vein was determined to be patent. Local anesthetic was administered. The vein was accessed via real-time ultrasound and micropuncture set with 21 gauge needle and a permanent image was stored. A 0.018 wire was advanced into superior vena cava. The remainder of the procedure was performed under fluoroscopic guidance. A 4 F introducer sheath was placed and the wire exchanged for a 0.035 J wire. The wire was advanced into the inferior vena cava. Local anesthetic was administered on the anterior chest wall inferolateral to the puncture site. A 2 cm transverse incision was made in the right anterior chest wall, and with blunt dissection the port pocket was created. A trocar was then used to advance the catheter subcutaneously to the venous access site. A 4 F introducer sheath was exchanged for a peel-away sheath over the wire. The wire and inner obturator were removed and the catheter advanced into the superior vena cava under fluoroscopic guidance. The catheter was trimmed to appropriate length and attached to the port. The port was inserted into the pocket and the sheath was removed. Catheter tip location was identified and a permanent image was stored. The port flushed and aspirated well. ??The pocket was closed using a two-layer technique with 2-0 vicryl deep interrupted and 4-0 vicryl running sutures. The skin closed was with dermabond. The port was not left accessed. Medications: Lidocaine 1% 10 mL subcut; lidocaine 2% with epinephrine 1:100,000 10 mL subcut Contrast: None Fluoroscopy: 7.14 mGy Estimated blood loss: 5 mL Complications: No immediate Impression: 1.) Patent right internal jugular vessel by sonographic evaluation. 2.) Implantation of power-injectable, Medcomp Dignity Mini 8 F low profile single-lumen port in right chest with tip in the superior cavoatrial junction. The port may be used immediately. mule operator: Christian Lara PA-C Attending of record: Pb Blank MD 12/08/2023 I, Dr. Blank, was not present for this procedure. Luis Rosas MD IMG IR ORDERABLES * (ABNORMAL) Cytology FNA (11/24/2023 12:52 PM EDT) Only the most recent of2 resultswithin the time period is included. Case Report Medical Cytology Report ? Case: [id number] ? Authorizing Provider: ??Naheed Garcia MD ? Collected: ? 11/24/2023 1252 ? Ordering Location: ? General Surgery at [facility] ?Received: ?11/24/2023 1256 ? Pathologist: ? Carmela Seaman MD ? Specimen: ?Lymph Node, Cervical, Left ? 11/27/2023 2:03 PM EDT [facility] Specimen Source Lymph Node, Cervical, Left US-guided FNA 11/27/2023 2:03 PM EDT [facility] Final Diagnosis Positive for malignancy 11/27/2023 2:03 PM EDT [facility] Diagnosis Discussion Compatible with metastatic adenocarcinoma, see note. Cell block was examined. Note: The tumor morphology is similar to patient's prior surgical biopsy of ampullary mass ([id number]). 11/27/2023 2:03 PM EDT [facility] Specimen Adequacy Satisfactory for evaluation. 11/27/2023 2:03 PM EDT [facility] Clinical Information Enlarged abnormal left neck cervical lymph node - evaluate for metastatic cancer (known ampulla cancer) 11/27/2023 2:03 PM EDT [facility] Gross Description Received in CytoLyt solution , approximately 30 mL total volume of cloudy, pink fluid with light flecks. Total preparation: ThinPrep: 1 and Cell Block: 1. 11/27/2023 2:03 PM EDT [facility] Result Note THIS RESULT REQUIRES PHYSICIAN/SUPRIYA FOLLOW UP(A) 11/27/2023 2:03 PM EDT [facility] Fine Needle Aspirate CERVICAL LYMPH NODE STRUCTURE / Unknown Non Blood Collection / Unknown 11/24/2023 12:52 PM EDT 11/24/2023 12:56 PM EDT Naheed Garcia MD PATHOLOGY/CYTOLOGY O RDERABLES Performing Organization Address City/State/[facility] Co de Phone Number [facility] [place] [address] * PGx Oncology (11/24/2023 10:53 AM EDT) NGS Report Status Normal 12/05/2023 5:54 AM EDT [facility] Blood VENOUS BLOOD SPECIMEN / Unknown Venipuncture / Unknown 11/24/2023 10:53 AM EDT 11/24/2023 10:53 AM EDT Luis Rosas MD MOLECULAR ORDERAB LES [facility] [place] [address] * (ABNORMAL) Request For 2nd Read CT Abdomen & Pelvis (11/17/2023 6:46 PM EDT) WORKSTATION ID [id number] RAD Anatomical Region Laterality Modality Abdomen, Pelvis [...] who have questions please contact the health nurse wound care that requested your imaging first. ? Narrative 11/18/2023 9:36 AM EDT EXAMINATION: REQUEST FOR 2ND READ CT ABDOMEN AND PELVIS CLINICAL HISTORY: Pt with ampullary adenocarcinoma, staging scan; Sending Institution [facility]; Date of exam [id number]; I believe a reinterpretation of this exam may alter care of Patient. Yes D49.0, Neoplasm of unspecified behavior of digestive system TECHNIQUE: Helical CT of the abdomen and pelvis following the intravenous administration of contrast. 100 cc Isovue-300 intravenous contrast. Oral contrast was not administered. Study performed October 31, 2023 [facility]. COMPARISON: None FINDINGS: Lower chest: No [...] (Generic) (11/17/2023 3:09 PM EDT) WORKSTATION ID [id number] DH RAD Anatomical Region Laterality Modality Chest Computed [...] who have questions please contact the health nurse wound care that requested your imaging first. ? Electronically signed by: Elroy Mishra MD, [facility] ??([phone]), at 11/20/2023 11:32 AM Narrative 11/20/2023 11:32 AM EDT EXAMINATION: CT [...] patients who have questions please contactthe health nurse wound care that requested your imaging first. Electronically signed by: Elroy Mishra MD, [facility]([phone]), at 11/20/2023 11:32 AM Fadi Willson MD IMG CT ORDERABLES * Carbohydrate Antigen 19-9 (11/17/2023 12:29 PM EDT) Pathologist [facility] CA 19-9 33.8 <=35.0 units/mL 11/17/2023 1:19 PM EDT [facility] Comment:This result was gene rated using a Connor Yamila immunoassay. Results obtained from other methods or manufacturers cannot be used interchangeably with this method. Blood VENOUS BLOOD SPECIMEN / Unknown Venipuncture / Unknown 11/17/2023 12:29 PM EDT 11/17/2023 12:29 PM EDT Luis Rosas MD CHEMISTRY ORDERAB LES [facility] [place] [address] * (ABNORMAL) CBC (with Diff) (11/17/2023 12:29 PM EDT) White Blood Cell 4.86 4.00 - 9.50 x10(3)/mc L 11/17/2023 12:44 PM EDT [facility] Red Blood Cell 3.61(L) 4.00 - 5.21 x10(6)/mc L 11/17/2023 12:44 PM EDT [facility] Hemoglobin 12.8 11.7 - 15.5 g/dL 11/17/2023 12:44 PM [facility] Hematocrit 37.4 35.7 - 45.8 % 11/17/2023 12:44 PM [facility] Mean Cell Volume 103.6(H) 82.6 - 94.4 fL 11/17/2023 12:44 PM [facility] Mean Cell Hemoglobin 35.5(H) 27.1 - 32.0 pg 11/17/2023 12:44 PM [facility] Mean Cell Hemoglobin Concentration 34.2 31.7 - 35.0 g/dL 11/17/2023 12:44 PM [facility] Platelet 298 145 - 357 x10(3)/mc L 11/17/2023 12:44 PM [facility] Mean Platelet Volume 10.5 7.6 - 12.9 fL 11/17/2023 12:44 PM [facility] RDW Standard Deviation 49.1(H) 37.0 - 46.0 fL 11/17/2023 12:44 PM [facility] RDW coefficient of variation 12.9 11.5 - 14.1 % 11/17/2023 12:44 PM [facility] NRBC% auto 0.0 % 11/17/2023 12:44 PM [facility] NRBC Absolute 0.00 0.00 - 0.00 x10(3)/mc L 11/17/2023 12:44 PM [facility] Neutrophil % 42.4 % 11/17/2023 12:44 PM [facility] Neutrophil Absolute (ANC) - Automated 2.06 1.70 - 6.10 x10(3)/mc L 11/17/2023 12:44 PM [facility] Lymph % 42.4 % 11/17/2023 12:44 PM [facility] Lymph Absolute 2.06 0.90 - 3.20 x10(3)/mc L 11/17/2023 12:44 PM EDT [facility] Monocyte % 11.9 % 11/17/2023 12:44 PM EDT [facility] Monocyte Absolute 0.58 0.30 - 0.90 x10(3)/mc L 11/17/2023 12:44 PM EDT [facility] Eos % 1.9 % 11/17/2023 12:44 PM EDT [facility] Eos Absolute 0.09 0.00 - 0.40 x10(3)/mc L 11/17/2023 12:44 PM EDT [facility] Basophil % 1.2 % 11/17/2023 12:44 PM EDT [facility] Baso Absolute 0.06 0.00 - 0.10 x10(3)/mc L 11/17/2023 12:44 PM EDT [facility] Immature Gran % 0.2 % 12:44 PM EDT [facility] Immature Gran Absolute 0.01 0.00 - 0.04 x10(3)/mc L 11/17/2023 12:44 PM EDT [facility] Blood VENOUS BLOOD SPECIMEN / Unknown Venipuncture / Unknown 11/17/2023 12:29 PM EDT 11/17/2023 12:29 PM EDT Luis Rosas MD HEMATOLOGY ORDERA BLES [facility] [place] [address] * CEA (11/17/2023 12:29 PM EDT) Carcinoembryonic Antigen 2.3 <=3.8 ng/ml 11/17/2023 1:19 PM EDT [facility] Comment: Some smokers may have elevated CEA, generally < 5.5 ng/mL. This result was generated using a Connor Yamila immunoassay. ??Results obtained from other methods or manufacturers cannot be used interchangeably with this method. Blood VENOUS BLOOD SPECIMEN / Unknown Venipuncture / Unknown 11/17/2023 12:29 PM EDT 11/17/2023 12:29 PM EDT Fadi Willson MD CHEMISTRY ORDERABLES [facility] [place] [address] * (ABNORMAL) Comprehensive metabolic panel (11/17/2023 12:29 PM EDT) Glucose 112 65 - 199 mg/dL 11/17/2023 1:09 PM EDT [facility] Comment:Glucose Concentratio n >=200 mg/dL plus symptoms is consistent with Diabetes Mellitus. Blood Urea Nitrogen 14 8 - 18 mg/dL 11/17/2023 1:09 PM EDT [facility] Creatinine 0.90 0.70 - 1.20 mg/dL 11/17/2023 1:09 PM EDT [facility] Sodium 138 135 - 145 mMol/L 11/17/2023 1:09 PM EDT [facility] Potassium 4.1 3.5 - 5.0 mMol/L 11/17/2023 1:09 PM EDT [facility] Chloride 103 98 - 107 mMol/L 11/17/2023 1:09 PM EDT [facility] Carbon Dioxide 24 22 - 31 mMol/L 11/17/2023 1:09 PM EDT [facility] Anion Gap 11 5 - 15 mMol/L 11/17/2023 1:09 PM EDT [facility] Calcium 10.0 8.5 - 10.5 mg/dL 11/17/2023 1:09 PM EDT [facility] Protein, Total 7.1 6.1 - 8.0 g/dL 11/17/2023 1:09 PM EDT [facility] Albumin 4.4 3.2 - 5.2 g/dL 11/17/2023 1:09 PM EDT [facility] Aspartate Aminotransferase 28 <=30 unit/L 11/17/2023 1:09 PM EDT [facility] Alanine Aminotransferase 51(H) 0 - 30 unit/L 11/17/2023 1:09 PM EDT [facility] Alkaline Phosphatase 302(H) 35 - 105 unit/L 11/17/2023 1:09 PM EDT [facility] Bilirubin, Total 0.8 <=1.3 mg/dL 11/17/2023 1:09 PM EDT [facility] Est Glomerular Filtration Rate - Female 67 mL/min/1. 73 m?? 11/17/2023 1:09 PM EDT [facility] Comment: This patient's estimated GFR was calculated using the 2020 CKD-EPI equation. The estimated GFR can vary from the measured GFR by up to 30% in the absence of rapidly changing kidney function. Assessment of the estimated GFR is not appropriate when creatinine concentrations are rapidly changing. For clinical situations in which a more precise estimate of GFR is necessary, consider alternative methods of GFR estimation such as a 24-hour urine creatinine clearance. Assignment of CKD stage 1 - 5 for patients with an eGFR near the transition point between stages may be based on clinical assessment of muscle mass and symptoms in addition to eGFR. Link: eGFR Calculator [employer] Fasting Status No 11/17/2023 1:09 PM EDT [facility] Blood VENOUS BLOOD SPECIMEN / Unknown Venipuncture / Unknown 11/17/2023 12:29 PM EDT 11/17/2023 12:29 PM EDT Luis Rosas MD CHEMISTRY ORDERAB LES [facility] [place] [address] * Request for 2nd read MR Abdomen (11/17/2023 9:59 AM EDT) WORKSTATION ID [id number] RAD Anatomical Region Laterality Modality SO Impressions 11/17/2023 11:16 AM EDT 1. ??Ampullary mass in the duodenal lumen is 1.7 cm. Associated severe dilatation of the pancreatic and bile ducts. 2. ??Mild marc hepatis lymphadenopathy. Thank you for letting us participate in the care of this patient. ??If you are a health care provider and have any questions regarding this report, please contact the number below. ??For patients who have questions please contact the health nurse wound care that requested your imaging first. ? Electronically signed by: Jerson Lemon MD, [facility] ([phone]), at 11/17/2023 11:16 AM Narrative 11/17/2023 11:16 AM EDT EXAMINATION: REQUEST FOR 2ND READ MR ABDOMEN CLINICAL HISTORY: Newly diagnosed ampullary carcinoma; Date of exam 11/01/2023; I believe a reinterpretation of this exam may alter care of Patient. Yes; Newly diagnosed ampullary carcinoma; What Modality is the exam? 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 * ??MRCP included. COMPARISON: None FINDINGS: MRCP Bile ducts: Markedly dilated intrahepatic bile ducts. The CBD is dilated to 1.5 cm. No filling defects or strictures. There is an ovoid ampullary mass in the duodenal lumen best seen on series 501 image 14, 1.7 cm. This is relatively inconspicuous on all other images. Gallbladder: Trace dependent sludge on series 501. Mildly thickened greenfield measuring 0.5 cm. Pancreatic duct: Dilated to a maximum of 0.8 cm in the head. No divisum. MRI Lower chest: No significant findings Liver: Normal size and signal intensity. No lesions. Pancreas: Ductal dilatation as above. No cystic or solid mass. Spleen: Normal. Adrenals: Normal. Kidneys: Nonenhancing bilateral cysts, largest in the left interpolar region is 1.3 cm. No suspicious lesions or collecting system dilatation. Vasculature: No abdominal aortic aneurysm. Patent portal veins. Lymph nodes: Mildly enlarged portacaval lymph node is 1.3 cm short axis. Slightly enlarged common hepatic node is 1.1 cm. Bowel: No obstructive or inflammatory process. Peritoneum and mesentery: No ascites or loculated fluid collection. Marrow Signal: No suspicious marrow lesions. Procedure Note Jerson Lemon MD - 11/17/2023 EXAMINATION: REQUEST FOR 2ND READ MR ABDOMEN CLINICAL HISTORY: Newly diagnosed ampullary carcinoma; Date of exam11/01/2023; I believe a reinterpretation of this exam may alter care of Patient. Yes;Newly diagnosed ampullary carcinoma; What Modality is the exam? 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 * MRCP included. COMPARISON: None FINDINGS: MRCP Bile ducts: Markedly dilated intrahepatic bile ducts. The CBD is dilatedto 1.5 cm. No filling defects or strictures. There is an ovoid ampullary mass inthe duodenal lumen best seen on series 501 image 14, 1.7 cm. This isrelatively inconspicuous on all other images. Gallbladder: Trace dependent sludge on series 501. Mildly thickenedwalls measuring 0.5 cm. Pancreatic duct: Dilated to a maximum of 0.8 cm in the head. No divisum. MRI Lower chest: No significant findings Liver: Normal size and signal intensity. No lesions. Pancreas: Ductal dilatation as above. No cystic or solid mass. Spleen: Normal. Adrenals: Normal. Kidneys: Nonenhancing bilateral cysts, largest in the left interpolarregion is 1.3 cm. No suspicious lesions or collecting system dilatation. Vasculature: No abdominal aortic aneurysm. Patent portal veins. Lymph nodes: Mildly enlarged portacaval lymph node is 1.3 cm short axis. Slightly enlarged common hepatic node is 1.1 cm. Bowel: No obstructive or inflammatory process. Peritoneum and mesentery: No ascites or loculated fluid collection. Marrow Signal: No suspicious marrow lesions. IMPRESSION 1. Ampullary mass in the duodenal lumen is 1.7 cm. Associated severedilatation of the pancreatic and bile ducts. 2. Mild marc hepatis lymphadenopathy. Thank you for letting us participate in the care of this patient. If youare a health care provider and have any questions regarding this report,please contact the number below. For patients who have questions please contactthe health nurse wound care that requested your imaging first. Electronically signed by: Jerson Lemon MD, [facility]([phone]), at 11/17/2023 11:16 AM Luis Rosas MD IMG OUTSIDE INTER PRETATION ORDERABLES * XR ERCP (11/02/2023 3:02 PM EDT) Narrative [facility] - 11/02/2023 3:02 PM EDT See PACS for result report. Ferdinand Lee MD IMG FILM LIBRARY ORD ERABLES Performing Organization Address City/State/[facility] Co de Phone Number [place], [place] * Surgical Pathology (11/02/2023 2:34 PM EDT) Case Report Surgical Pathology Report ? Case: [id number] ? Authorizing Provider: ??Ferdinand Lee MD ? Collected: ? 11/02/2023 1434 ? Ordering Location: ? [place]astroenterology at [facility] [place] ?? Received: ?11/02/2023 1730 ? Pathologist: ? Jus Lizama MD ? Specimen: ?Ampulla ? [facility] Final Diagnosis A. Ampulla, Biopsy: - Adenocarcinoma, poorly differentiated (See Note). Note: Immunostains for MLH1, MSH2, MSH6 and PMS2 reveal intact nuclear staining in tumor cells. In a very small percentage of tumors, there may still be an underlying hereditary defect in these DNA mismatch repair genes despite intact nuclear expression of the protein in tumor cells. Genetic counseling and/or additional workup is indicated in patients with a family history that meets current criteria for Bernal syndrome screening. Cr-px 11/28/2023 2:04 PM [facility] Addendum This addendum is to report the adenocarcinoma subtype per clinician request. Immunostains for CDX2, CK20, MUC1, and MUC2 are positive. The morphology and immunoprofile are consistent with intestinal type. 11/28/2023 2:04 PM [facility] Addendum electronically signed by Richard Christianson MD on 11/28/2023 at 2:04 PM Additional Studies Whole slide scan: A1 11/28/2023 2:04 PM [facility] Disclaimer(s) Immunohistochemical assay was performed on paraffin-embedded tissue sections fixed in 10% neutral buffered formalin for 6-72 hours using the polymer system technique with appropriate controls. The assay was performed according to the passenger vessel chef's instructions using anti-MLH-1, anti-MSH-2, anti-MSH-6, and anti-PMS-2 antibodies. Formalin-fixed, paraffin-embedded tissue sections are studied using the polymer technique with appropriate positive and negative controls. These IHC studies provide the pathologist with adjunctive diagnostic information. Antibody specificity has been verified by testing antibodies on a series of in-house tissues with known immunohistochemical performance characteristics. The clinical interpretation of any antibody positive staining or its absence is evaluated within the context of clinical presentation, morphology, histopathological criteria and other diagnostic tests. 11/28/2023 2:04 PM EDT [facility] Clinical Information A. Ampulla, Mass Ampullary mass 11/28/2023 2:04 PM EDT [facility] Gross Description A. Ampulla, . Labeled/Fixative: Ampulla, formalin. Quantity/Size: Four, ranging from 0.2 to 0.4 cm. Tissue Description: Soft, vidal-pink and red tissues. Sections/Processing: Submitted in toto in 1 cassette labeled A1. 11/28/2023 2:04 PM EDT [facility] Result Note Routine 11/28/2023 2:04 PM EDT [facility] Tissue SPECIMEN FROM AMPULLA OF VATER / Unknown 11/02/2023 2:34 PM EDT 11/02/2023 5:30 PM EDT Comment:Ampullary mass Ferdinand Lee MD PATHOLOGY/CYTOLOGY O RDERANEYMAR [facility] [place] [address] * ERCP (11/02/2023 1:08 PM EDT) ERCP [facility] Endoscopy Procedure Date: 11/02/2023 1:08 PM ? Patient Name: Prerna Bro ? Date of : 1950 ? Age: 73 ? Order #: [id number] ? Instrument Name: [id number] ? Procedure: ? ERCP Indications: ? Periampullary tumor, elevated LFTs, ? bile and pancreatic duct dilation Providers: ? Ferdinand Lee MD, Loren Vallejo, ? Fanta Travis, Ricky Proctor, ? Johnie Rdz MD: ?Kannan Black Medicines: ? General Anesthesia Complications: ? No immediate complications. Procedure: ? Pre-Anesthesia Assessment: ? - Prior to the procedure, a History ? and Physical was performed, and ? patient medications, allergies and ? sensitivities were reviewed. The ? patient's tolerance of previous ? anesthesia was reviewed. ? - The risks and benefits of the ? procedure and the sedation options ? and risks were discussed with the ? patient. All questions were ? answered and informed consent was ? obtained. ? - Pre-procedure physical ? examination revealed no ? contraindications to sedation. ? - General anesthesia under the ? supervision of a WIRE TRANSFER CLERK was ? determined to be medically ? necessary for this procedure based ? on complex procedure (ERCP, EUS). ? The procedure, indications, ? benefits, risks and alternatives ? were explained to the patient. ? Specifically discussed were ? potential complications including, ? but not limited to, bleeding, ? perforation, infection, ? pancreatitis, missing a cancer, and ? adverse medication reactions.The ? Duodenoscope was introduced through ? the mouth, and advanced to the ? duodenum where it was used to ? inject contrast into and used to ? inject contrast into the dorsal and ? ventral pancreatic ducts. The ERCP ? was accomplished without ? difficulty. The patient tolerated ? the procedure well. ? Findings: ? The improvement engineer film was normal. The esophagus was ? successfully intubated under direct vision. The scope ? was advanced from the mouth to the duodenum. The ? pharynx, larynx and associated structures, as well as ? the upper GI tract, were normal. An ulcerated mass ? measuring 20 mm in diameter was found at the major ? papilla. The bile duct was deeply cannulated with the ? short-nosed traction sphincterotome. Contrast was ? injected. I personally interpreted the bile duct ? images. There was brisk flow of contrast through the ? ducts. The main bile duct was dilated, with a mass ? causing an obstruction. The largest diameter was 14 ? mm. A 4 mm biliary sphincterotomy was made with a ? traction (standard) sphincterotome using ERBE ? electrocautery. The sphincterotomy transiently oozed ? blood. One 10 Fr by 5 cm plastic stent with a single ? external flap and a single internal flap was placed ? into the common bile duct. The stent was in good ? position. The PD was briefly accessed with the guide ? wire during initial cannulation attempts but no ? contrast was injected. The ampullary mass was ? biopsied with a cold forceps for histology. ? Moderate Sedation: ? Not applicable - See Anesthesia documentation Impression: ?- The entire main bile duct was ? dilated, with an ampullary mass ? causing an obstruction. ? - A biliary sphincterotomy was ? performed. ? - One plastic stent was placed into ? the common bile duct. ? - Biopsies were performed of the ? ampullary mass. Recommendation: ?- Await path results. ? - Refer to surgical oncology. ? - The attending physician listed ? above was present for the entire ? procedure. ? Attending Participation: ? I was present and participated during the entire ? procedure, including non-ramsey portions. ? Ferdinand Lee MD 11/02/2023 3:30:19 PM This report has been signed electronically. Number of Addenda: 0 Note Initiated On: 11/02/2023 1:08 PM [facility] 11/02/2023 1:08 PM EDT Betzaida Avila MD GENERAL SURGICAL ORDERABLES [employer] * UPPER EUS-ENDOSCOPIC ULTRASOUND (11/02/2023 12:56 PM EDT) UPPER ENDOSCOPIC ULTRASOUND [facility] Endoscopy Procedure Date: 11/02/2023 12:56 PM ? Patient Name: Prerna Bro ? Date of : 1950 ? Age: 73 ? Order #: [id number] ? Instrument Name: [id number] ? Procedure: ? Upper EUS Indications: ? Common bile duct dilation ? (acquired) seen on MRCP, Dilated ? pancreatic duct on MRCP, Elevated ? liver enzymes Providers: ? Ferdinand Lee MD, Loren Vallejo, ? Fanta Travis, Ricky Proctor, ? Johnie Rdz MD: ?Betzaida Villatoro Medicines: ? General Anesthesia Complications: ? No immediate complications. Procedure: ? Pre-Anesthesia Assessment: ? - Prior to the procedure, a History ? and Physical was performed, and ? patient medications, allergies and ? sensitivities were reviewed. The ? patient's tolerance of previous ? anesthesia was reviewed. ? - The risks and benefits of the ? procedure and the sedation options ? and risks were discussed with the ? patient. All questions were ? answered and informed consent was ? obtained. ? The procedure, indications, ? benefits, risks and alternatives ? were explained to the patient. ? Specifically discussed were ? potential complications including, ? but not limited to, bleeding, ? perforation, infection, missing a ? cancer, and adverse medication ? reactions.The Endoscope was ? introduced through the mouth, and ? advanced to the second part of ? duodenum. The upper EUS was ? accomplished without difficulty. ? The patient tolerated the procedure. ? Findings: ? ENDOSCOPIC FINDING: : ? A mild Schatzki ring was found in the distal ? esophagus. ? Normal stomach. ? There is an ulcerated mass at the ampulla. ? ENDOSONOGRAPHIC FINDING: : ? The esophagus, stomach and duodenum were examined ? endosonographically. ? A 2 cm hypoechoic round mass was identified ? endosonographically encompassing the ampulla, with ? upstream dilation of the bile duct and pancreatic ? duct. ? Several lymph nodes were visualized with the ? ultrasound probe in the marc hepatis region ? measuring up to 2 cm in size. Fine needle biopsy was ? performed. Color Doppler imaging was utilized prior ? to needle puncture to confirm a lack of significant ? vascular structures within the needle path. Four ? passes were made with the 25 gauge Shark ultrasound ? biopsy needle using a transduodenal approach. A ? visible core of tissue was obtained. Results pending. ? There was dilation in the main bile duct which ? measured up to 14 mm and pancreatic duct up to 5mm. ? There was sludge in the gallbladder. ? Remainder of the pancreas appeared normal. ? The visualized portions of the liver were diffusely ? echogenic (limited exam). There were no masses or ? ductal dilation. ? Moderate Sedation: ? Not applicable - See Anesthesia documentation Impression: ?- Mild Schatzki ring. ? - An ulcerated mass was found in ? the ampulla with upstream ductal ? dilation of bile duct and ? pancreatic duct associated with ? lymphadenopathy-s/p FNA. ? - Fatty liver. ? - Gallbladder sludge. Recommendation: ?- Perform an ERCP today. ? - Await cytology results. ? - The attending physician listed ? above was present for the entire ? procedure. ? Attending Participation: ? I was present and participated during the entire ? procedure, including non-ramsey portions. ? Ferdinand Lee MD 11/02/2023 3:26:08 PM This report has been signed electronically. Number of Addenda: 0 Note Initiated On: 11/02/2023 12:56 PM [employer] 11/02/2023 12:5 6 PM EDT Kannan Humphrey MD GENERAL SURGICAL [facility] Performing Organization Address [facility] de Phone Number [employer] * Film Library- Storage Only MR Abdomen (11/01/2023 11:45 AM EDT) 11/01/2023 4:10 PM EDT Narrative [facility] - 11/01/2023 4:11 PM EDT This exam is auto-finalizing. It's purpose is for storage only. Unknown IMG FILM LIBRARY My Visual Brief Performing Organization Address [facility] de Phone Number [place], [place] * Film Library- Storage Only CT Abdomen & Pelvis (10/31/2023 9:15 PM EDT) 11/01/2023 12:2 8 AM EDT Narrative [facility] - 11/01/2023 12:28 AM EDT This exam is auto-finalizing. It's purpose is for storage only. Unknown IMG FILM LIBRARY ORD [employer]Linked Performing Organization Address [facility]/ZIP Co de Phone Number [facility] [place] [facility] Last 3 Months Advance Directives * Attempt Cardiopulmonary Resuscitation - Inpatient (Latest Code Status on File) Date Activated Date Inactivated Comments 12/08/2023 9:48 AM 12/09/2023 4:35 AM Question Answer Comments Code Status decision made by: Patient Content of discussion: full code Care Teams Chief Nurse Executive Relationship Specialty Start Date End Date Betzaida Avila MD [address] [place] [address] PCP - General Family Medicine 11/30/21
--- OUTSIDE RECORDS SUMMARY | 2023-12-15 01:33 | XMS_ITS | Encounter Summary ---
Author Organization [facility] [place] [address] Care Team Providers Care Ballet Soloist Name Role Phone Betzaida Avila MD Primary Care Provider [phone] Encounter Details Date Type Department Care Team (Latest Contact Info) Description 12/08/2023 Travel Social History Tobacco Use Types Packs/Day Years Used Date Smoking Tobacco: Former Cigarettes 1 10 Smokeless Tobacco: Never Alcohol Use Standard Drinks/Week Comments Not Currently [...] 9:00 AM EDT Infusion Hematology Oncology at [address] [phone] 12/26/2023 3:45 PM EDT Office Visit Dermatology at [address] [place] [phone] Francesco Chen MD [address] [facility], [place] [address] 12/29/2023 11:30 AM EDT Office Visit Hematology/Oncology at [address] [phone] [facility] [place] [address] Julianna Cartwright APRN [address] [place] [address] DR HEMATOLOGY AND ONCOLOGY [place], [place] [id number] 12/29/2023 12:00 PM EDT Infusion Hematology Oncology at [address] [phone] documented as of this encounter Visit Diagnoses Not on filedocumented in this encounter Care Teams Ballet Soloist Relationship Specialty Start Date End Date Betzaida Avila MD [address] [place] [address] PCP - General Family Medicine 11/30/21 documented as of this encounter
--- OUTSIDE RECORDS SUMMARY | 2023-12-15 01:33 | XMS_ITS | Encounter Summary ---
[place] [address] Care Team Providers Care Chief Telephone Operator Name Role Phone Betzaida Avila MD Primary Care Provider [phone] Reason for Visit * Diagnostic Test (Routine) - Closed Specialty Diagnoses / Procedures Referred By Elisha fishman Referred To Contact Radiology Diagnoses Ampullary carcinoma Procedures NM PET CT Skull Base to Mid-thigh Luis Rosas MD [facility] [place] [address] [place] [address] Referral ID Status Reason Start Date Expiration Date V isits Requested Visits Authorized [id number] Closed Specialty Service Requested 11/28/2023 05/27/2025 1 1 Encounter Details Date Type Department Care Team (Latest Contact Info) Description 12/08/2023 12:56 PM EDT - 12/08/2023 11:59 PM EDT Hospital Encounter [place] [address] Luis Rosas MD [facility] [place] [address] Arrived Discharge Disposition: Home Social History Tobacco Use [...] 9:00 AM EDT Infusion Hematology Oncology at [address] [phone] 12/26/2023 3:45 PM EDT Office Visit Dermatology at [address] [place] [address] Francesco Chen MD [address] [place] [address], [place] [address] 12/29/2023 11:30 AM EDT Office Visit Hematology/Oncology at [address] [phone] Yousif Garcia MD [facility] [place] [address] Julianna Cartwright APRN [address] [place] [address] DR HEMATOLOGY AND ONCOLOGY [place], [place] [address] 12/29/2023 12:00 PM EDT Infusion Hematology Oncology at [address] [phone] documented as of this encounter Procedures Procedure Name Priority Date/Time Associated Diagnosis Comments NM PET CT SKULL BASE TO MID-THIGH ([facility]) Routine 12/08/2023 1:22 PM EDT Ampullary carcinoma documented in this encounter Results * NM PET CT Skull Base to Mid-thigh (12/08/2023 1:22 PM EDT) WORKSTATION ID [id number] RAD Anatomical Region Laterality Modality Positron Emissio [...] who have questions please contact the health acute care physician that requested your imaging first. ? 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 ??Is this oligometastatic disease?. Initial staging exam. 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 Small hiatal hernia. Left ovarian 4.8 cm cystic lesion, present on CT of 10/31/2023 and out of the [id number]-vn-zkcx on MRI of 11/01/2023. SKELETON/EXTREMITIES: Normal activity [...] of Vater TECHNIQUE: Following IV injection of 09-gedrsd-8-deoxyglucose (FDG) astandard uptake of approximately 60 minutes, [...] precaval and aortocaval lymph nodes (images 138-175)with customer care representative aortocaval node measuring 2.6 cm (image 147). Small hiatal hernia. Left ovarian 4.8 cm cystic lesion, present on CT of 10/31/2023 and out ofthe keevx-wq-yhtw on MRI of 11/01/2023. SKELETON/EXTREMITIES: Normal activity [...] patients who have questions please contactthe health acute care physician that requested your imaging first. Luis Rosas MD IMG PET ORDERABLE S documented in this encounter Visit Diagnoses Not on filedocumented in this encounter Care Teams Chief Telephone Operator Relationship Specialty Start Date End Date Betzaida Avila MD [address] [place] [address] PCP - General Family Medicine 11/30/21 documented as of this encounter
--- OUTSIDE RECORDS SUMMARY | 2023-12-15 01:33 | XMS_ITS | Encounter Summary ---
Author Organization [facility] [place] [address] Care Team Providers Care Pier Hand Name Role Phone Betzaida Avila MD Primary Care Provider [phone] Encounter Details Date Type Department Care Team (Late st Contact Info) Description 11/02/2023 1:00 PM EDT - 11/02/2023 2:30 PM EDT Surgery [place] [address] [facility] [place] [address] UPPER EUS- ENDOSCOPIC ULTRASOUND (WRVU 3.47) Social History Tobacco Use Types Packs/Day Years Used Date Smoking Tobacco: Former Cigarettes 1 10 Smokeless Tobacco: Never Tobacco Cessation:Counseling Given: Not Answered Alcohol Use Standard Drinks/Week Comments Yes 3 (1 standard drink = 0.6 oz pur e alcohol) 3 glasses daily Sex and Gender Information Value Date Recorded Sex Assigned at Not on file Gender Identity Not on file Sexual Orientation Not on file documented as of this encounter Last Filed Vital Signs Vital Sign Reading Time Taken Comments Blood Pressure 115/85 11/02/2023 12:09 PM EDT Pulse 68 11/02/2023 12:09 PM EDT Temperature 36.9 ??C (98.5 ??F) 11/02/2023 12:09 PM E DT Respiratory Rate 16 11/02/2023 12:09 PM EDT Oxygen Saturation 95% 11/02/2023 12:09 PM EDT Inhaled Oxygen Concentration - - Weight 86.2 kg (190 lb) 11/02/2023 12:09 PM EDT Height 167.6 cm (5' 6) 11/02/2023 12:09 PM EDT Body Mass Index 30.67 11/02/2023 12:09 PM EDT documented in this encounter Discharge Instructions * Discharge Instructions* Tamiko Davis RN - 11/02/2023 2:56 PM EDT Endoscopic Retrograde Cholangiopancreatogram (ERCP): What to Expect at Home Your Recovery After you have an endoscopic retrograde cholangiopancreatogram (ERCP), you will be able to go home after your doctor or a nurse checks to make sure you are not having any problems. If you stay in thehospital overnight, you may go home the next day. You may have a sore throat for a day or two after the procedure. This care sheet gives you a general idea about how long it will take for you to recover. But each person recovers at a different pace. Follow the steps below to get better as quickly as possible. How can you care for yourself at home? Activity Rest when you feel tired. You can do your normal activities when it feels okay to do so. Diet Follow your doctor's directions for eating. Unless your doctor has told you not to, drink plenty of fluids. Do not drink alcohol. Medicines Your doctor will tell you if and when you can restart your medicines. He or she will also give you instructions about taking any new medicines. If you take blood thinners, such as warfarin (Coumadin), clopidogrel (Plavix), or aspirin, be sure to talk to your doctor. He or she will tell you if and when to start taking those medicines again. Make sure that you understand exactly what your doctor wants you to do. If a sphincterotomy was done during the test, your doctor may tell you not to take aspirin or otheranti-inflammatory medicines for a few days. These include ibuprofen (Advil, Motrin) and naproxen (Aleve). If you have a sore throat the day after the procedure, use an ghjn-lht-uyfrxtq spray to numb your throat. Sucking on throat lozenges and gargling with warm salt water may also help relieve your symptoms. Other instructions For your safety, do not drive or operate machinery until the medicine wears off and you can think clearly. Your doctor may tell you not to drive or operate machinery until the day after your test. Do not sign legal documents or make major decisions until the medicine wears off and you can think clearly. The anesthesia can make it hard for you to fully understand what you are agreeing to. Additional Information for Sedation Patients For patients who received sedation: You may have received medications before and/or during your procedure which effects your judgement and reaction time. Do not drive, operate machinery, drink alcoholic beverages or make important decisions for 24 hours. Be careful on stairs as you may be unsteady on your feet. You may eat a regular diet as tolerated. Do not smoke if you are alone. IV site: Slight redness or tenderness is normal, you can use a warm compress if you would like. If tenderness and/or redness increase or if foul drainage occurs, please contact your Doctor. Please call [phone] before 8pm Mon-Fri with problems, questions or concerns. If you call after 8pm or on weekends, call the Hospital at [phone] and ask to speak to the Timber Harvester Operator station mechanic apprentice and the lime sludge kiln operator will contact that person for you. When should you call for help? Call 116 anytime you think you may need emergency care. For example, call if: You passed out (lost consciousness). You pass maroon or bloody stools. You have trouble breathing. Call your doctor now or seek immediate medical care if: You have pain that does not get better after you take pain medicine. You are sick to your stomach or cannot drink fluids. You have new or worse belly pain. You have blood in your stools. You have a fever. You cannot pass stools or gas. Watch closely for changes in your health, and be sure to contact your doctor if you have any problems, like Where can you learn more? [facility] View your After Visit Summary and more online at [email or web address] If you would like to provide feedback about your hospital experience, please call the Office of Patient and Family Relations at . If you have received this After Visit Summary in error, please immediately return it in person to the department, or notify the [facility] Privacy Office by calling toll free at between the hours of 8AM and 5PM to arrange for our retrieval of the documents at no cost to you. Content Version: 12.2 ?? [id number] [employer]. Care instructions adapted under license by [facility]. If you have questions about a medical condition or this instruction, always ask your healthcare professional. [employer] disclaims any warranty or liability for your use of this information. documented in this encounter Medications at Time of Discharge Medication Sig Dispensed Refills Start Date End Date allopurinoL (Zyloprim) 100 mg Tablet TAKE 2 TABLETS BY MOUTH ONCE DAILY FOR GOUT PREVENTION 09/18/2019 famotidine (Pepcid) 40 mg Tablet Take 20 mg by mouth 2 times daily. 09/20/2019 Euthyrox 137 mcg Tablet TAKE 1 TABLET BY MOUTH ONCE DAILY FOR THYROID 11/04/2019 multivitamin Capsule Take 1 capsule by mouth three times a week (Mon, Weds, Fri). Xarelto 20 mg Tablet TAKE 1 TABLET BY MOUTH ONCE DAILY FOR BLOOD THINNER 08/19/2019 11/17/2023 levothyroxine (Synthroid) 125 mcg Tablet 137 mcg. 06/11/2019 11/17/2023 Calcium Carbonate-Vit D3-Min 600 mg calcium- 400 unit Tablet Take 1 tablet by mouth daily. 11/17/2023 documented as of this encounter Progress Notes * Tamiko Davis RN - 11/02/2023 3:42 PM EDT Patient alert and oriented, vital signs stable. Reviewed discharge instructions; patient verbalizedunderstanding. MD in to talk with patient about the procedure. Pain assessment documented. Patient escorted out of department via ambulance to outside hospital. documented in this encounter H&P Notes * Loren Vallejo MD - 11/02/2023 12:19 PM EDT .Gastroenterology and Hepatology Pre-Procedure History and Physical Exam Procedure: ERCP: EUS: Indication: 73 yo with uptrending LFTs, dilated CBD and PD without definitive stone or mass Patient Active Problem List Diagnosis Code Chest pain R07.9 Diverticulosis of both small and large intestine without perforation or abscess without bleeding K57.50 Gout, unspecified M10.9 Osteopenia M85.80 Hypothyroidism E03.9 EXAM: HEENT: Airway examined, oropharynx clear LUNGS: Clear to auscultation HEART: Regular rate and rhythm, normal S1, S2 ABDOMEN: Normal bowel sounds, soft, non tender, non distended, A/P Proceed with the planned endoscopic procedure. ASA 3 - Patient with moderate systemic disease with functional limitations Sedation Plan: anesthesia Risks and benefits of the procedure explained to the patient. Consent signed. documented in this encounter Miscellaneous Notes * Op Note - Ferdinand Lee MD - 11/02/2023 1:38 PM EDT [facility] Operative Note Patient Name: Prerna Perez : [id number] MR#: [id number] Case Date: 11/02/2023 Surgeon: Surgeons and Role: * Ferdinand Lee MD - Primary Preoperative diagnosis: Jaundice, dilated bile duct bacl and forth Postoperative diagnosis: * No post-op diagnosis entered * Procedure(s) (LRB): UPPER EUS- ENDOSCOPIC ULTRASOUND (WRVU 3.47) (N/A) ERCP (WRVU 5.85) (N/A) FINE NEEDLE ASPIRATION BIOPSY, INC US GUIDANCE; FIRST LESION (WRVU 1.46) ERCP, W PLCMNT ENDOSCOPIC STENT BILIARY OR PANCREATIC DUCT (WRVU 8.48) ERCP W/SPHINCTEROTOMY/PAPILLOTOMY (WRVU 6.5) CHOLANGIOGRAM INJECTION PROCEDURE, W IMG GUIDANCE, NEW ACCESS (WRVU 4.25) (N/A) EGD WITH BIOPSY (WRVU 2.39) (N/A) Full procedure note is documented under the Procedure section of eDH. documented in this encounter Plan of Treatment Upcoming Encounters Date Type Department Care Team (Late st Contact Info) Description 12/15/2023 9:00 AM EDT Infusion Hematology Oncology at [address] [phone] 12/26/2023 3:45 PM EDT Office Visit Dermatology at [place] [address] [place] [address] Francesco Chen MD [address], [place] [address] 12/29/2023 11:30 AM EDT Office Visit Hematology/Oncology at [address] [phone] [facility] [place] [address] Julianna Cartwright APRN [address] [place] [address] DR HEMATOLOGY AND ONCOLOGY [place], [place] [phone] 12/29/2023 12:00 PM EDT Infusion Hematology Oncology at [address] [phone] Pending Results Name Type Priority Associated Diagnoses Date /Time DH CancerSeq Lab Routine 11/02/2023 2 :34 PM EDT DH CancerSeq (RNA) Lab Routine 2023 2:34 PM EDT Scheduled Orders Name Type Priority Associated Diagnoses Orde r Schedule DH CancerSeq Lab Routine One Time for 1 Occurrences starting 12/04/2023 until 12/04/2023, 1 completed DH CancerSeq (RNA) Lab Routine One Ti me for 1 Occurrences starting 12/04/2023 until 12/04/2023, 1 completed documented as of this encounter Procedures Procedure Name Priority Date/Time Associated Diagnosis Comments XR ERCP Routine 11/02/2023 3:02 PM EDT SURGICAL PATHOLOGY Routine 11/02/2023 2: 34 PM EDT CYTOLOGY FNA Routine 11/02/2023 2:16 PM EDT CYTOLOGY FNA OTHER THAN THYROID Routine 11/02/2023 2:16 PM EDT Upper Gi Endoscopy, Biopsy ([id number]) 11/02/2023 1:37 PM EDT Jaundice, dilated bile duct bacl and forth Njx Cholangio Prq W/Img Gid Rs&I New Access ([id number]) 11/02/2023 1:37 PM EDT Jaundice, dilated bile duct bacl and forth Ercp, Sphincterotomy ([id number]) 11/02/2023 1:37 PM EDT Jaundice, dilated bile duct bacl and forth Ercp Stent Placement Biliary Or Pancreatic Duct([id number]) 11/02/2023 1:37 PM EDT Jaundice, dilated bile duct bacl and forth Fine Needle Aspiration Bx W/Us Gdn 1St Lesion ([id number]) 11/02/2023 1:37 PM EDT Jaundice, dilated bile duct bacl and forth Ercp, Diagnostic ([id number]) 11/02/2023 1:37 PM EDT Jaundice, dilated bile duct bacl and forth Endoscopic Us Exam, Esoph ([id number]) 11/02/2023 1:37 PM EDT Jaundice, dilated bile duct bacl and forth documented in this encounter Results * XR ERCP (11/02/2023 3:02 PM EDT) Narrative [facility] - 11/02/2023 3:02 PM EDT See PACS for result report. Ferdinand Lee MD [facility] FILM LIBRARY ORD ERABLES Performing Organization Address City/State/[facility] Co de Phone Number [place], [place] * Surgical Pathology (11/02/2023 2:34 PM EDT) Case Report Surgical Pathology Report ? Case: [id number] ? Authorizing Provider: ??Ferdinand Lee MD ? Collected: ? 11/02/2023 1434 ? Ordering Location: ? Gastroenterology at [facility] ?? Received: ?11/02/2023 1730 ? Pathologist: ? Jus Lizama MD ? Specimen: ?Ampulla ? 11/28/2023 2:04 PM EDT [facility] Final Diagnosis A. Ampulla, Biopsy: - [...] Bernal syndrome screening. Cr-px 11/28/2023 2:04 PM EDT [facility] Addendum This addendum is to report the adenocarcinoma subtype per clinician request. Immunostains for CDX2, CK20, MUC1, and MUC2 are positive. The morphology and immunoprofile are consistent with intestinal type. 11/28/2023 2:04 PM EDT [facility] Addendum electronically signed by Richard Christianson MD on 11/28/2023 at 2:04 PM Additional Studies Whole slide scan: A1 11/28/2023 2:04 PM EDT [facility] Disclaimer(s) Immunohistochemical assay was performed on paraffin-embedded tissue sections fixed in 10% neutral buffered formalin for 6-72 hours using the polymer system technique with appropriate controls. The assay was performed according to the broth mixer's instructions using anti-MLH-1, anti-MSH-2, anti-MSH-6, and anti-PMS-2 [...] other diagnostic tests. 11/28/2023 2:04 PM EDT [facility] Clinical Information A. Ampulla, Mass Ampullary mass 11/28/2023 2:04 PM EDT [facility] Gross Description A. Ampulla, . Labeled/Fixative: Ampulla, formalin. Quantity/Size: Four, ranging from 0.2 to 0.4 cm. Tissue Description: Soft, vidal-pink and red tissues. Sections/Processing: Submitted in toto in 1 cassette labeled A1. 11/28/2023 2:04 PM EDT [facility] Result Note Routine 11/28/2023 2:04 PM EDT [facility] Tissue SPECIMEN FROM AMPULLA OF VATER / Unknown 11/02/2023 2:34 PM EDT 11/02/2023 5:30 PM EDT Comment:Ampullary mass Ferdinand Lee MD PATHOLOGY/CYTOLOGY O JAVIERERANEYMAR [facility] [place] [address] * (ABNORMAL) Cytology FNA (11/02/2023 2:16 PM EDT) Case Report Medical Cytology Report ? Case: [id number] ? Authorizing Provider: ??Ferdinand Lee MD ? Collected: ? 11/02/2023 1416 ? Ordering Location: ? Gastroenterology at [facility] ?? Received: ?11/02/2023 1730 ? Pathologist: ? Kan Cunningham MD ? Specimen: ?Lymph Node, carly ampullary LNs ? 11/06/2023 5:27 PM T [facility] Specimen Source Lymph Node: carly-ampullary (EUS-guided FNA) 11/06/2023 5:27 PM T [facility] Final Diagnosis Positive for malignancy 11/06/2023 5:27 PM [facility] Diagnosis Discussion Compatible with metastatic adenocarcinoma. See also the concurrent surgical biopsy of the ampullary mass. (Cell block was examined.) 11/06/2023 5:27 PM T [facility] Specimen Adequacy Satisfactory for evaluation. 11/06/2023 5:27 PM T [facility] Clinical Information 73 y/o female ampullary mass. 11/06/2023 5:27 PM T [facility] Gross Description Received in formalin, approximately 20 mL total volume of cloudy, pink fluid with clots. Total preparation: Cell Block: 1. 11/06/2023 5:27 PM EDT [facility] Result Note THIS RESULT REQUIRES PHYSICIAN/SUPRIYA FOLLOW UP(A) 11/06/2023 5:27 PM EDT [facility] Fine Needle Aspirate LYMPH NODE SPECIMEN / Unknown Non Blood Collection / Unknown 11/02/2023 2:16 PM EDT 11/02/2023 5:30 PM EDT Ferdinand Lee MD PATHOLOGY/CYTOLOGY O OCTAVIANO [facility] [address] [place] [address] documented in this encounter Visit Diagnoses Not on filedocumented in this encounter Administered Medications Inactive Administered Medications - up to 3 most recent administrations Medication Order MAR Action Action Date Dose Rate Site lactated ringers infusion 100 mL/hr, Intravenous, CONTINUOUS, Starting on Keya 11/02/23 at 1230, Until Keya 11/02/23 at 1541, Endoscopy (Day of Procedure) New Bag 11/02/2023 1:09 PM EDT New Bag 11/02/2023 12:20 PM EDT 100 mL/hr 100 mL/hr documented in this encounter Active and Recently Administered Medications Times are shown in EDT. Continuous Medication Order 10/31/2023 11/01/2023 11/02/2023 lactated ringers infusion (CANCELED) 100 mL/hr, Intravenous, CONTINUOUS, Starting on Keya 11/02/23 at 1230, Until Keya 11/02/23 at 1541, Endoscopy (Day of Procedure) 1220 (New Bag - Prov ider: Tamiko Davis RN)1308 (Paused - Provider: Vannessa West CRNA - Comment: Switch to gravity)1309 (New Bag - Provider: Vannessa West CRNA)1426 (Anesthesia Volume Adjustment - Provider: Vannessa West CRNA) documented in this encounter Care Teams Pier Hand Relationship Specialty Start Date End Date Betzaida Avila MD [address] [facility] [place] [address] PCP - General Family Medicine 11/30/21 documented as of this encounter
--- OUTSIDE RECORDS SUMMARY | 2023-12-15 01:33 | XMS_ITS | Encounter Summary ---
Author Organization [facility] Address [facility] [place] [address] Care Team Providers Care Residential Green Building Designer Name Role Phone Betzaida Avila MD Primary Care Provider [phone] Encounter Details Date Type Department Care Team (Late st Contact Info) Description 11/02/2023 1:09 PM EDT Anesthesia Event [place] [address] Isma Espinoza MD [facility] [place] [address] Anesthesia Record Procedure Summary Procedure Name Responsible Anesthesiologist Anesthesia Start Time Anesthesia Stop Time UPPER EUS- ENDOSCOPIC ULTRASOUND (WRVU 3.47) (Trunk) Isma Espinoza MD 11/02/23 1309 11/02/23 1451 Events Date Time Event Comment 11/02/2023 1226 1309 AN Verify 1309 Start 1309 An Start Data 1317 An Induction 1325 An Intubation 1332 Anesthesia Ready 1447 Extubation/LMA Out 1450 an stop data 1451 Recovery or ICU Handoff Khushboo ent care was transferred to the destination unit staff after review of the patient's medical history, current anesthetic/surgical status and plan, according to the Provider Handoff Checklist. 1451 Stop Meds Name Total lidocaine IV 50 mg propofoL 200 mg rocuronium 50 mg ondansetron 4 mg dexAMETHasone 4 mg sugammadex 200 mg dexmedeTOMIDine 4 mcg/mL 8 mcg lactated ringers infusion 600 mL * Agents Name O2 * Blood No blood administrations on file. Lines, Drains, and Airways Type Details Placement Removal PIV 20 gauge; basilic ve in (medial side of arm), right 11/02/23 1350 by PIV 10/31/23; 1206; medi an cubital vein (antecubital fossa), right; [facility] staff; 11/02/23; 1351 10/31/23 1206 by Ebony West LPN 11/02/23 1351 by Vannessa West CRNA ETT Mask Ventilation: Ea sy (1); ETT Type: Cuffed; ETT Size: 7 mm; Mac Blade: 3; Alex Blade: 2; Notes: Cricoid Pressure; Attempts: 2; Laryngoscopy Grade: 4; ETT Placement Verified By: Auscultation, Capnometry; Inserted by: MD Olga; Removal Date: 11/02/23; Removal Time: 1447 11/02/23 1330 by Vannessa West CRNA 11/02/23 1447 by Vannessa West CRNA documented in this encounter Social History Tobacco Use Types Packs/Day Years [...] on file documented as of this encounter OR Notes * Anesthesia Postprocedure Evaluation - Isma Espinoza MD - 11/02/2023 3:25 PM EDT Department of Anesthesiology Post-procedure Note Patient: Prerna Perez Procedure Summary Date: 11/02/23 Room / Location: [facility] ENDO 2 / [facility] Anesthesia Start: 1309 Anesthesia Stop: 1451 Procedures: UPPER EUS- ENDOSCOPIC ULTRASOUND (WRVU 3.47) (Trunk) ERCP (WRVU 5.85) (Trunk) FINE NEEDLE ASPIRATION BIOPSY, INC US GUIDANCE; FIRST LESION (WRVU 1.46) ERCP, W PLCMNT ENDOSCOPIC STENT BILIARY OR PANCREATIC DUCT (WRVU 8.48) ERCP W/SPHINCTEROTOMY/PAPILLOTOMY (WRVU 6.5) CHOLANGIOGRAM INJECTION PROCEDURE, W IMG GUIDANCE, NEW ACCESS (WRVU 4.25) EGD WITH BIOPSY (WRVU 2.39) (Trunk) Diagnosis: (Jaundice, dilated bile duct) (bacl and forth) Surgeons: Ferdinand Lee MD Responsible Provider: Isma Espinoza MD Anesthesia Type: general ASA Status: 3 All Anesthesia Providers: Anesthesiologist: Isma Espinoza MD ONLINE MARKETING SPECIALIST: Vannessa West CRNA Vitals Value Taken Time BP 136/76 11/02/23 1520 Temp Pulse Resp 16 11/02/23 1520 SpO2 96 % 11/02/23 1524 Pain Level 0 11/02/23 1520 Vitals shown include unfiled device data. Patient Location: PACU/[facility] Level of Consciousness: Awake and Alert Pain Management: Satisfactory Analgesia PONV: None Cardiovascular Status: At Baseline Respiratory Status: At Baseline Postoperative Fluid Status: Intravascular EUvolemia Possible Anesthetic Complications: NONE apparent at time of evaluation Final Primary Anesthesia Type: General (The anesthetic type performed was the same as planned.) Comments: * Anesthesia Preprocedure Evaluation - Isma Espinoza MD - 11/02/2023 10:04 AM EDT Pre-Anesthesia Evaluation for: Prerna Perez a 73 y.o. female. Procedure(s): UPPER EUS- ENDOSCOPIC ULTRASOUND (WRVU 3.47) ERCP (WRVU 5.85) Patient Active Problem List Diagnosis Date Noted ??? Chest pain 04/25/2014 ??? Diverticulosis of both small and large intestine without perforation or abscess without bleeding 04/25/2014 ??? Gout, unspecified 04/25/2014 ??? Osteopenia 04/25/2014 ??? Hypothyroidism 04/25/2014 No past medical history on file. No past surgical history on file. Social History Tobacco Use ??? Smoking status: Former Current packs/day: 1.00 Average packs/day: 1 pack/day for 10.0 years (10.0 ttl pk-yrs) Types: Cigarettes ??? Smokeless tobacco: Never Substance Use Topics ??? Alcohol use: Not on file Social History Substance and Sexual Activity Drug Use Not on file No Known Allergies Medications: MAR and/or home medications have been reviewed. Physical Exam: Preprocedure Vitals Current as of 11/02/23 1004 No BP, pulse, respiration, SpO2, or temperature recorded. Height: Weight: BMI: IBW: Airway Assessment: Mallampati: II TM distance: >3 FB Neck ROM: full Cardiovascular Assessment: Rhythm: regular system normal Pulmonary Assessment: unlabored breathing pulmonary exam normal Dental Assessment: - normal exam Misc Assessment: IV access: Peripheral line Last Filed Perioperative Cognitive Screening None Anesthesia Plan: ASA 3 general, with a(n) intravenous induction 73 yo woman with jaundice, dilated bile duct for EUS ERCP Chart and labs reviewed; patient seen and examined PMH: Gout, DVT, Hypothyroidism, Diverticulosis, Cervical spondylosis (resolved; FROM no paresthesia) Appropriately NPO Neg EST 2014 Normal Echo 2014; LVEF 71% without WMA Assessment/Plan: ASA 3 GA/ETT; routine monitors Risks, plans, and procedures discussed with patient who understands and consents; questions and concerns addressed Region - Other Informed Consent: Anesthetic plan and risks discussed with patient. Plan discussed with ONLINE MARKETING SPECIALIST. Anesthesia Screening documented in this encounter Plan of Treatment Upcoming Encounters Date Type Department Care Team (Late st Contact Info) Description 12/15/2023 9:00 AM EDT Infusion Hematology Oncology at [address] [phone] 12/26/2023 3:45 PM EDT Office Visit Dermatology at [address] [place] [address] Francesco Chen MD [address] [place] [address] RD, [place] [address] 12/29/2023 11:30 AM EDT Office Visit Hematology/Oncology at [address] [phone] Yousif Garcia MD [facility] [place] [address] Julianna Cartwright APRN [address] [place] [address] DR HEMATOLOGY [place] [address] 12/29/2023 12:00 PM EDT Infusion Hematology Oncology at [address] [place] [phone] documented as of this encounter Visit Diagnoses Not on filedocumented in this encounter Administered Medications Inactive Administered Medications - up to 3 most recent administrations Medication Order MAR Action Action Date Dose Rate Site dexAMETHasone (Decadron) injection Intravenous, PRN, Starting on Keya 11/02/23 at 1337, Until Keya 11/02/23 at 1451, Anesthesia Intra-op, Routine Given 11/02/2023 1:37 PM EDT 4 mg dexmedeTOMIDine (Precedex) (4 mcg/mL) bolus injection (Anesthsia) Intravenous, PRN, Starting on Keya 11/02/23 at 1313, Until Keya 11/02/23 at 1451, Anesthesia Intra-op, Routine Given 11/02/2023 1:13 PM EDT 8 mcg lactated ringers infusion 100 mL/hr, Intravenous, CONTINUOUS, Starting on Keya 11/02/23 at 1230, Until Keya 11/02/23 at 1541, Endoscopy (Day of Procedure) New Bag 11/02/2023 1:09 PM EDT New Bag 11/02/2023 12:20 PM EDT 100 mL/hr 100 mL/hr lidocaine (pf) (Xylocaine) (20 mg/mL) 2% injection syringe Intravenous, PRN, Starting on Keya 11/02/23 at 1317, Until Keya 11/02/23 at 1451, Anesthesia Intra-op, Routine Given 11/02/2023 1:17 PM EDT 50 mg ondansetron (pf) (Zofran) (2 mg/mL) injection Intravenous, PRN, Starting on Keya 11/02/23 at 1441, Until Keya 11/02/23 at 1451, Anesthesia Intra-op, Routine Given 11/02/2023 2:41 PM EDT 4 mg propofoL (Diprivan) 10 mg/mL bolus injection (Anesthesia) Intravenous, PRN, Starting on Keya 11/02/23 at 1317, Until Keya 11/02/23 at 1451, Anesthesia Intra-op Given 11/02/2023 1:21 PM EDT 50 mg Given 11/02/2023 1:17 PM EDT 150 mg rocuronium (Zemuron) (10 mg/mL) multi-dose injection Intravenous, PRN, Starting on Keya 11/02/23 at 1317, Until Keya 11/02/23 at 1451, Anesthesia Intra-op, Routine Given 11/02/2023 1:17 PM EDT 50 mg sugammadex (Bridion) 100 mg/mL injection Intravenous, PRN, Starting on Keya 11/02/23 at 1441, Until Keya 11/02/23 at 1451, Anesthesia Intra-op, Routine Given 11/02/2023 2:41 PM EDT 200 mg documented in this encounter Care Teams Residential Green Building Designer Relationship Specialty Start Date End Date Betzaida Avila MD [address] [address] PCP - General Family Medicine 11/30/21 documented as of this encounter
--- OUTSIDE RECORDS SUMMARY | 2023-12-15 01:33 | XMS_ITS | Encounter Summary ---
Author Organization [facility] [place] [address] Care Team Providers Care Senior Research Consultant Name Role Phone Betzaida Avila MD Primary Care Provider [phone] Encounter Details Date Type Department Care Team (Late Contact Info) Description 11/28/2023 Orders Only Hematology [place] [address] Luis Rosas MD [facility] [place] [address] Ampullary carcinoma Social History Tobacco Use Types Packs/Day Years [...] Encounters Date Type Department Care Team (Late Contact Info) Description 12/15/2023 9:00 AM EDT Infusion Hematology Oncology at [address] [phone] 12/26/2023 3:45 PM EDT Office Visit Dermatology at [place] [address] [facility] [place] [address] Francesco Chen MD [address] [facility], [place] [address] 12/29/2023 11:30 AM EDT Office Visit Hematology/Oncology at [address] [phone] Yousif Garcia MD [facility] [place] [address] Julianna Cartwright APRN [address] [place] [address] DR HEMATOLOGY AND ONCOLOGY [place], [place] [address] 12/29/2023 12:00 PM EDT Infusion Hematology Oncology at [address] [phone] Scheduled Orders Name Type Priority Associated Diagnoses Orde r Schedule Anatomical Pathology Additional Testing Pathology/Cytol ogy Routine Ampullary carcinoma Ordered: 11/28/2023 documented as of this encounter Visit Diagnoses Diagnosis 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
--- OUTSIDE RECORDS SUMMARY | 2023-12-15 01:33 | XMS_ITS | Encounter Summary ---
[place] [address] Care Team Providers Care Early Head Start Teacher Name Role Phone Betzaida Avila MD Primary Care Provider [phone] Encounter Details Date Type Department Care Team (Latest Contact Info) Description 11/24/2023 11:55 AM EDT Laboratory Appointment Lab [address] [place] [address] Ampullary carcinoma Social History Tobacco Use Types [...] 9:00 AM EDT Infusion Hematology Oncology at [address] [phone] 12/26/2023 3:45 PM EDT Office Visit Dermatology at [place] [address] [facility] [place] [phone] Francesco Chen MD [address] [facility], [place] [address] 12/29/2023 11:30 AM EDT Office Visit Hematology/Oncology at [address] [phone] Yousif Garcia MD [facility] [place] [address] Julianna Cartwright APRN [address] [place] [address] DR HEMATOLOGY AND ONCOLOGY [place], [place] [phone] 12/29/2023 12:00 PM EDT Infusion Hematology Oncology at [address] [phone] documented as of this encounter Procedures Procedure Name Priority Date/Time Associated Diagnosis Comments PGX ONCOLOGY Routine 11/24/2023 10:53 AM EDT Ampullary carcinoma documented in this encounter Results * PGx Oncology (11/24/2023 10:53 AM EDT) NGS Report Status Normal 12/05/2023 5:54 AM EDT [facility] Blood VENOUS BLOOD SPECIMEN / Unknown Venipuncture / Unknown 11/24/2023 10:53 AM EDT 11/24/2023 10:53 AM EDT Luis Rosas MD MOLECULAR ORDERAB LES [facility] [place] [address] documented in this encounter Visit Diagnoses Diagnosis 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
--- OUTSIDE RECORDS SUMMARY | 2023-12-15 01:33 | XMS_ITS | Encounter Summary ---
Author Organization [facility] [place] [address] Care Team Providers Care Trolley Worker Name Role Phone Betzaida Avila MD Primary Care Provider [phone] Reason for Referral * Consultation (Urgent) - Authorized Specialty Diagnoses / Procedures Referred By Contyelena t Referred To Contact Hematology and Oncology Diagnoses Primary adenocarcinoma of ampulla of Vater Fadi Willson MD [facility] [place] [address] [facility] [place] [address] Referral ID Status Reason Start Date Expiration Date Visits Requested Visits Authorized [id number] Authorized Continuity of Care 11/22/2023 11/21/2024 1 1 Reason for Visit * Reason Comments Follow-up Encounter Details Date Type Department Care Team (Latest Contact Info) Description 11/21/2023 9:30 AM EDT Office [place] [address] Fadi Willson MD [facility] [place] [address] Primary adenocarcinoma of ampulla of Vater Social History Tobacco Use Types Packs/Day Years [...] on file documented as of this encounter Progress Notes * Fadi Willson MD - 11/21/2023 9:30 AM EDT Images from the original note were not included. Department of General Surgery Surgical Oncology Consultation Note CC: ampullary adenocarcinoma HPI (clinic note 11/17/23): Prerna Perez is a 73 y.o. with significant medical comorbidities. Briefly, the patient noted darker urine some mild back pain and dizziness for which she called her PCPs office. She was encouraged to come in for labs. Ultimately the dizziness persisted and she she presented to [facility] on 11/01/23. There labs were notable for [...] that she noted some pruritus at her a bdomen and a mild ache in her back. She denies a prior episodes of pancreatitis. Denies any unintentional weight loss. Interval: Prerna Perez had a CT chest to complete her staging, which did not note intrathoracic disease but did note a left supraclavicular node. Physical Exam: General: NAD, pleasant, conversant HEENT: left sided node can be palpated, rolls doesn't feel fixed. Pulm: non labored breathing on RA Abd: soft, nontender, nondistended Skin: warm, dry Ext: no cyanosis, cap refill <2sec Neuro: grossly intact, nonfocal MSK: 5/5 strength Assessment and Plan: Prerna Perez is a 73 y.o. 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 I obtained a CT chest to complete her staging and she was noted to have ~1cm left supraclavicular node. We discussed that his merits further interrogation. We discussed a PET scan vs an US guided biopsy. If the PET is positive we still won't now if this represents an infectious vs malignant process, given that. I discussed her with my colleague Dr. Garcia who is an endocrine surgeon, she feels that this node could be sampled with US guidance in the clinic. She will be able to do that later this week on 11/23. I discussed with Prerna that if this were to show metastatic disease then treatment would consist of chemotherapy for palliation. If this node is unrelated to her ampullary adenocarcinoma, then we would proceed with a whipple procedure. We discussed what that entails and also the risks, specifically, bleeding needing transfusion, infection, need to open the wound, need for PO/IV abx, need for additional IR drain. We discussed the risk of anastomotic leaks specifically pancreas leaks and the implications of that. We discussed that she will have a drain and we will check thedrain amylase on day 3. We also discussed delayed gastric empyting and other other possible complications. We discussed the expected hospital course and recovery. Prerna is eager to proceed I will tent atively hold 12/05 for her. This will allow time for the biopsy to be preformed at the cytology to result. Please excuse any typographical and/or grammatical errors, dragon dictation was used to complete this note. Fadi Willson MD, MS Surgical Oncology 50 minutes were spent on date of visit, including 35 face to face time. documented in this encounter Plan of Treatment Upcoming Encounters Date Type Department Care Team (Late st Contact Info) Description 12/15/2023 9:00 AM EDT Infusion Hematology Oncology at [address] [phone] 12/26/2023 3:45 PM EDT Office Visit Dermatology at [address] [place] [address] Francesco Chen MD [address] [place] [address] RD, [place] [address] 12/29/2023 11:30 AM EDT Office Visit Hematology/Oncology at [address] [phone] Yousif Garcia MD [facility] [place] [address] Julianna Cartwright, INSPECTOR [employer] [address] [place] [address] DR HEMATOLOGY AND ONCOLOGY [place], [place] [phone] 12/29/2023 12:00 PM EDT Infusion Hematology Oncology at [address] [phone] Scheduled Referrals Name Type Priority Associated Diagnoses Orde r Schedule Referral to Nutrition Services Outpatient Referral Urgent Primary adenocarcinoma of ampulla of Vater Ordered: 11/22/2023 documented as of this encounter Visit Diagnoses Diagnosis Primary adenocarcinoma of ampulla of Vater documented in this encounter Care Teams Trolley Worker Relationship Specialty Start Date End Date Betzaida Avila MD [address] [place] [address] PCP - General Family Medicine 11/30/21 documented as of this encounter
--- OUTSIDE RECORDS SUMMARY | 2023-12-15 01:33 | XMS_ITS | Encounter Summary ---
Author Organization [facility] [place] [address] Care Team Providers Care Program Developer Name Role Phone Betzaida Avila MD Primary Care Provider [phone] [phone] Reason for Visit * Reason Comments Establish Care Encounter Details Date Type Department Care Team (Latest Contact Info) Description 11/24/2023 12:20 PM EDT Office [place] [address] [facility] [place] [place] [address] Left cervical lymphadenopathy Social History Tobacco Use Types Packs/Day Years [...] Sign Reading Time Taken Comments Blood Pressure 133/82 11/24/2023 12:14 PM EDT Pulse 86 11/24/2023 12:14 PM EDT Temperature - - Respiratory Rate 15 11/24/2023 12:14 PM EDT Oxygen Saturation 99% 11/24/2023 12:14 PM EDT Inhaled Oxygen Concentration - - Weight 85.3 kg (188 lb) 11/24/2023 12:14 PM EDT Height 167.6 cm (5' 6) 11/24/2023 12:14 PM EDT Body Mass Index 30.34 11/24/2023 12:14 PM EDT documented in this encounter Progress Notes * Naheed Garcia MD - 11/24/2023 12:20 PM EDT General Surgery Consultation Dear Providers, Thank you for referring your patient to our [facility] General Surgery Clinic. Ms. Prerna Perez is a 73 y.o. female referred by Dr. Willson for evaluation of abnormal left level 4 cervical lymph node recently seen on CT scan. She has a known diagnosis of ambulatory adenocarcinoma and was evaluated by the surgical oncologistDr. Willson who is planning on a potential resection in the near future however discovered a an enlarged atypical lymph node in the neck seen on CT scan and referred her today for urgent biopsy of this lymph node. She does not take any blood thinners. She has had no surgeries of the neck. No history of thyroid disease. No symptoms in the neck region, no pain, no voice changes, no dysphagia. Review of Systems: As listed above Past Medical History: Past Medical History: Diagnosis Date Gout Hypothyroidism Osteopenia Primary adenocarcinoma of ampulla of Vater Past Surgical History: Past Surgical History: Procedure Laterality Date PRO ENDOSCOPIC US EXAM, ESOPH N/A 11/02/2023 UPPER EUS- ENDOSCOPIC ULTRASOUND (WRVU 3.47) performed by Ferdinand Lee MD at [facility] PRO ERCP STENT PLACEMENT BILIARY OR PANCREATIC DUCT 11/02/2023 ERCP, W PLCMNT ENDOSCOPIC STENT BILIARY OR PANCREATIC DUCT (WRVU 8.48) performed by Ferdinand Lee MD at [facility] PRO ERCP, SPHINCTEROTOMY 11/02/2023 ERCP W/SPHINCTEROTOMY/PAPILLOTOMY (WRVU 6.5) performed by Ferdinand Lee MD at [facility] PRO ERCP,DIAGNOSTIC N/A 11/02/2023 ERCP (WRVU 5.85) performed by Ferdinand Lee MD at [facility] PRO FINE NEEDLE ASPIRATION BX W/US GDN 1ST LESION 11/02/2023 FINE NEEDLE ASPIRATION BIOPSY, INC US GUIDANCE; FIRST LESION (WRVU 1.46) performed by Ferdinand Lee MD at [facility] PRO NJX CHOLANGIO PRQ W/IMG GID RS&I NEW ACCESS N/A 11/02/2023 CHOLANGIOGRAM INJECTION PROCEDURE, W IMG GUIDANCE, NEW ACCESS (WRVU 4.25) performed by Ferdinand Lee MD at [facility] PRO UPPER GI ENDOSCOPY, BIOPSY N/A 11/02/2023 EGD WITH BIOPSY (WRVU 2.39) performed by Ferdinand Lee MD at [facility] Family History: The family history includes Alcohol Use Disorder in her sister; Breast Cancer in her sister; Coronary Artery Disease in her father and mother; Dementia in her mother; Diabetes in her mother; Glaucoma in her mother; Mental Illness in her brother.. Social History: The patient reports that she has quit smoking. Her smoking use included cigarettes.She has a 10 pack-year smoking history. She has never used smokeless tobacco. The patient reports current alcohol use of about 3.0 standard drinks of alcohol per week. Allergies: No Known Allergies Medications: Current Outpatient Medications: cholecalciferol, Vitamin D3, 25 mcg (1,000 unit) Capsule, Take 1,000 each by mouth daily., Disp: , Rfl: alendronate (Fosamax) 70 mg tablet, Take 70 mg by mouth every 7 days. Take in AM with full glass ofwater, on an empty stomach. Do not lie down for 30 min., Disp: , Rfl: allopurinoL (Zyloprim) 100 mg Tablet, TAKE 2 TABLETS BY MOUTH ONCE DAILY FOR GOUT PREVENTION, Disp:, Rfl: famotidine (Pepcid) 40 mg Tablet, TAKE 1 TABLET BY MOUTH ONCE DAILY FOR STOMACH ACID CONTROL, Disp:, Rfl: Euthyrox 137 mcg Tablet, TAKE 1 TABLET BY MOUTH ONCE DAILY FOR THYROID, Disp: , Rfl: multivitamin Capsule, Take 1 capsule by mouth three times a week (Mon, Weds, Fri)., Disp: , Rfl: Physical Exam: Vitals: 11/24/23 1214 BP: 133/82 BP Location (NBP): Right arm Patient Position: Sitting BP Cuff Sizes: Adult (25-34 cm) Pulse: 86 Resp: 15 SpO2: 99% Weight: 85.3 kg (188 lb) Height: 167.6 cm (5' 6) Body mass index is 30.34 kg/m??. Constitutional: Well-appearing, No acute distress Neuro: Alert, Answers questions appropriately Eyes: Extraocular movements intact, no proptosis or lid lag ENT: Mucous membranes moist. Trachea midline. No palpable LAD. Normal thyroid. Heart: Regular rate Lungs: Unlabored on room air. Normal respiratory effort Abdomen: Not examined. Extremities: No edema Skin: Warm and dry. No rashes. Psych: Normal affect Office ultrasound: The thyroid is very small and hypertrophic bilaterally. And left level 4 is a rounded hypoechoic lymph node with no clear fatty hilum that measures up to 1.93 cm. This is sitting posterior and slightly lateral to the left internal jugular vein. No other abnormal cervical lymphadenopathy is appreciated. Assessment and recommendations Ms. Prerna Perez is a 73 y.o. female and has a diagnosis of ampullary adenocarcinoma and is undergoing preoperative evaluation and further metastatic survey by her surgical oncologist Dr. Willson. On imaging she identified a an enlarged and abnormal appearing left level 4 cervical lymph node and referred her today for biopsy. We will plan to perform a biopsy under ultrasound guidance today in the office. We will put a montgomery on the results and I will follow-up with the patient and Dr. Willson regarding these results. Please let me know if you have any questions or concerns regarding our visit today. Sincerely, Naheed Garcia MD, FACS Business Solutions Analyst, Section of General Surgery * Naheed Garcia MD - 11/24/2023 12:20 PM EDT Ultrasound-Guided Cervical Lymph Node Fine Needle Aspiration (FNA) Procedural Time-Out: I, Dr. Naheed Garcia, attest that the following elements of the timeout were completed: - All staff for procedure were present. - Patient name and verified. - Consent signed or verbally obtained. - Procedure and location verified by patient & provider, site marked if applicable. Time-Out completed at 12:30pm. I performed an ultrasound-guided fine needle aspiration biopsy today in clinic as a separately identifiable procedure. I first performed a diagnostic thyroid and cervical ultrasound with the findingsas noted above. Verbal informed consent was then obtained after discussing the risks of fine needlebiopsy, including bleeding, infection, and damage to surrounding structures. I prepped the area with alcohol and infiltrated the dermal layer with 1% lidocaine with epinephrine. I used ultrasound guidance with a 12mHz ultrasound transducer for guidance and needled size was 22Gfor the biopsy. I made 4 separate needle passes to biopsy the 2cm left level 4 cervical lymph node. These passes were washed out in Cytolyte solution to be sent to cytology. A completion ultrasound exam of the neck revealed no signs of bleeding. The patient tolerated the procedure well without immediate complications. I will notify her of the final pathology results when they are available. documented in this encounter Plan of Treatment Upcoming Encounters Date Type Department Care Team (Late st Contact Info) Description 12/15/2023 9:00 AM EDT Infusion Hematology Oncology at [address] [phone] 12/26/2023 3:45 PM EDT Office Visit Dermatology at [address] [place] [address] Francesco Chen MD [address] [facility], [place] [address] 12/29/2023 11:30 AM EDT Office Visit Hematology/Oncology at [address] [phone] [facility] [address] Julianna Cartwright APRN [address] [place] [address] DR [place] [address] 12/29/2023 12:00 PM EDT Infusion Hematology Oncology at [address] [phone] documented as of this encounter Procedures Procedure Name Priority Date/Time Associated Diagnosis Comments CYTOLOGY FNA Routine 11/24/2023 12:52 PM EDT Left cervical lymphadenopathy CYTOLOGY FNA OTHER THAN THYROID Routine 11/24/2023 12:52 PM EDT Left cervical lymphadenopathy documented in this encounter Results * (ABNORMAL) Cytology FNA (11/24/2023 12:52 PM EDT) Case Report Medical Cytology Report ? Case: [id number] ? Authorizing Provider: ??Naheed Garcia MD ? Collected: ? 11/24/2023 1252 ? Ordering Location: ? [place] [facility]Received: ?11/24/2023 1256 ? Pathologist: ? Carmela [...] patient's prior surgical biopsy of ampullary mass ([id number]). 11/27/2023 2:03 PM EDT [facility] [...] PM EDT Naheed Garcia MD PATHOLOGY/CYTOLOGY O [facility] [place] [address] documented in this encounter Visit Diagnoses Diagnosis Left cervical lymphadenopathy Enlargement of lymph nodes documented in this encounter Care Teams Program Developer Relationship Specialty Start Date End Date Betzaida Avila MD [address] [place] [address] PCP - General Family Medicine 11/30/21 documented as of this encounter
--- OUTSIDE RECORDS SUMMARY | 2023-12-15 01:33 | XMS_ITS ---
[place] [address] Care Team Providers Care Otr Flatbed Driver Name Role Phone Betzaida Avila MD Primary Care Provider +1 [phone] Active Problems Problem Noted Date Diagnosed Date Metastatic adenocarcinoma 12/12/2023 Chest pain 04/25/2014 Diverticulosis of both small and large intestine without perforation or abscess without bleeding 04/25/2014 Gout, unspecified 04/25/2014 Osteopenia 04/25/2014 Hypothyroidism 04/25/2014 Primary adenocarcinoma of ampulla of Vater Current Oncology Plans [facility] AMB ONC GI COLORECTAL CANCER - FOLFOX-6 (14 DAY)* Plan Start Date: 12/15/2023 Plan Provider:Yousif Garcia MD Linked Problems Primary adenocarcinoma of am shanice of Vater Treatment Medications Current Day (Day 1 , Cycle 1 - Planned for 12/15/2023) Next Day (Day 3, Cycle 1 - Planned for 12/17/2023) fluorouraciL (ADRUCIL)fluorouraciL (AdruciL) in sodium chloride 0.9% 138 mL infusion (46 Hour - For Home Use)leucovorin (Wellcovorin) in dextrose 5% or sodium chloride 0.9% for infusionoxaliplatin (Eloxatin)OXALIplatin (Eloxatin) in dextrose 5% 250 mL infusionPump Disconnect: Home Infusion fluorouraciL (ADRUCIL) chemo injection 630 mgfluorouraciL (AdruciL) in sodium chloride 0.9% 138 mL infusion (46 Hour - For Home Use) 3,782 mgleucovorin (Wellcovorin) 350 mg in dextrose 5% 85 mL infusionOXALIplatin (Eloxatin) 134 mg in dextrose 5% 276.8 mL infusion Home Infusion: Pump Disconnect Past Plans No past plan information found. Radiation Treatments * No radiation treatments are documented for this patient in [facility]. Treatments may have been administered in another system.
--- OUTSIDE RECORDS SUMMARY | 2023-12-15 01:33 | XMS_ITS | Encounter Summary ---
Author Organization [facility] [place] [address] Care Team Providers Care Lamp Inspector Name Role Phone Betzaida Avila MD Primary Care Provider [phone] [phone] Encounter Details Date Type Department Care Team (Latest Contact Info) Description 12/12/2023 Travel Social History Tobacco Use Types Packs/Day [...] AM EDT Infusion Hematology Oncology at [address] [phone] 12/26/2023 3:45 PM EDT Office Visit Dermatology at [address] [place] [phone] Francesco Chen MD [address] [facility] [facility] [address], [place] [address] 12/29/2023 11:30 AM EDT Office Visit Hematology/Oncology at [address] [phone] Yousif Garcia MD [facility] [place] [address] Julianna Cartwright APRN [address] [place] [address] DR HEMATOLOGY AND ONCOLOGY [place], [place] [id number] 12/29/2023 12:00 PM EDT Infusion Hematology Oncology at [address] [phone] documented as of this encounter Visit Diagnoses Not on filedocumented in this encounter Care Teams Lamp Inspector Relationship Specialty Start Date End Date Betzaida Avila MD [address] [place] [address] PCP - General Family Medicine 11/30/21 documented as of this encounter
--- OUTSIDE RECORDS SUMMARY | 2023-12-15 01:33 | XMS_ITS | Encounter Summary ---
[place] [address] Care Team Providers Care Junior Sales Representative Name Role Phone Betzaida Avila MD Primary Care Provider +1 -[phone] Encounter Details Date Type Department Care Team (Late Contact Info) Description 11/02/2023 12:15 PM EDT Ancillary Procedure [place] [address] Social History Tobacco Use Types Packs/Day Years [...] 9:00 AM EDT Infusion Hematology Oncology at [address] [phone] 12/26/2023 3:45 PM EDT Office Visit Dermatology at [place] [address] [place] [phone] Francesco Chen MD [address], [place] [address] 12/29/2023 11:30 AM EDT Office Visit Hematology/Oncology at [address] [phone] Yousif Garcia MD [facility] [place] [address] Julianna Cartwright APRN [address] [place] [address] DR HEMATOLOGY AND ONCOLOGY [place], [place] [phone] 12/29/2023 12:00 PM EDT Infusion Hematology Oncology at [address] [phone] documented as of this encounter Procedures Procedure Name Priority Date/Time Associated Diagnosis Comments XR ERCP Routine 11/02/2023 3:02 PM EDT ERCP Routine 11/02/2023 1:08 PM EDT UPPER EUS-ENDOSCOPIC ULTRASOUND Routine 11/02/2023 12:56 PM EDT documented in this encounter Results * ERCP (11/02/2023 1:08 PM EDT) ERCP [facility] Endoscopy Procedure Date: 11/02/2023 1:08 PM ? Patient Name: Prerna Bro ? Date of : 1950 ? Age: 73 ? Order #: [id number] ? Instrument Name: [id number] ? Procedure: ? ERCP Indications: ? Periampullary [...] anesthesia under the ? supervision of a WIND UP WORKER was ? determined to be medically ? [...] the procedure well. ? Findings: ? The streetcar repairer film was normal. The esophagus was ? [...] (11/02/2023 12:56 PM EDT) UPPER ENDOSCOPIC ULTRASOUND [facility] Endoscopy Procedure Date: 11/02/2023 12:56 PM ? Patient Name: Prerna Bro ? Date of : 1950 ? Age: 73 ? Order #: [id number] ? Instrument Name: [id number] ? Procedure: ? Upper EUS Indications: ? [...] PM EDT Kannan Humphrey MD GENERAL SURGICAL ORD ERABLES Performing Organization Address City/State/[facility] Co de Phone Number [employer]OVATION documented in this encounter Visit Diagnoses Not on filedocumented in this encounter Care Teams Junior Sales Representative Relationship Specialty Start Date End Date Betzaida Avila MD [address] [place] [address] PCP - General Family Medicine 11/30/21 documented as of this encounter
--- OUTSIDE RECORDS SUMMARY | 2023-12-15 01:33 | XMS_ITS | Encounter Summary ---
Author Organization [facility] [place] [address] Care Team Providers Care Furnace Charging Machine Operator Name Role Phone Betzaida Avila MD Primary Care Provider +1 [phone] Encounter Details Date Type Department Care Team (Latest Contact Info) Description 11/28/2023 1:00 PM EDT TH Visit (TeleHealth) [place] [address] Fadi Willson MD [facility] [address] Ampullary carcinoma Social History Tobacco Use Types [...] Progress Notes * Fadi Willson MD - 11/28/2023 1:00 PM EDT Images from the original note were not included. Department of General Surgery Surgical Oncology Follow-Up Note CC: ampullary adenocarcinoma HPI (clinic note 11/17/23): Prerna Perez is a 73 y.o. with significant medical comorbidities. Briefly, the patient noted darker urine some mild back pain and dizziness for which she called her PCPs office. She was encouraged to come in for labs. Ultimately the dizziness persisted and she she presented to [place] on 11/01/23. There labs were notable for [...] of pancreatitis. Denies any unintentional weight loss. Clinic 11/21/23: Prerna Perez had a CT chest to complete her staging, which did not note intrathoracic disease but did note a left supraclavicular node. Interval: I had Prerna Perez see my colleague Dr. Garcia on 11/24/23, for an US guided biopsy ofthe supraclavicular node node, it has returned as Compatible with metastatic adenocarcinoma, the tumor morphology is similar to patient's prior surgical biopsy of ampullary mass Assessment and Plan: Prerna Perez is a 73 y.o. 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 I obtained a CT chest to complete her staging and she was noted to have ~1cm left supraclavicular node. Dr. Garcia who is an endocrine surgeon, sampled with US guidance in the clinic on 11/23. Pathology has returned as Compatible with metastatic adenocarcinoma, the tumor morphology is similar to patient's prior surgical biopsy of ampullary mass . I spoke to Prerna and her sister Janessa to share the results of the pathology and discuss neck steps in her care. We discussed that surgery doesnot have a role at this time. Rather she needs a Mediport and to begin systemic chemotherapy. Also a PET scan may be helpful in finding additional disease. Prerna asked if surgery could be performed in the future if her disease is only located in the ampulla and the lymph node. We discussed that this is not the standard of care however if she had oligometastatic disease after completing chemotherapy then we could represent her tumor board to discuss the role of an operation at that point. However I again reiterated that the next steps for her are systemic chemotherapy. Prerna lives in [place] and states that [facility] is 25 minutes away from her and she wouldlike to receive her chemotherapy there. I will touch base with the nurse navigator from medical oncology to help facilitate the next steps. Please excuse any typographical and/or grammatical errors, dragon dictation was used to complete this note. Fadi Willson MD, MS Surgical Oncology 40 minutes were spent on date of visit, including 25 minutes of direct patient counseling. The remainder of the time was spent to complete documentation and coordinate her care. documented in this encounter Plan of Treatment Upcoming Encounters Date Type Department Care Team (Late st Contact [facility]) Description 12/15/2023 9:00 AM EDT Infusion Hematology Oncology at [address] [phone] 12/26/2023 3:45 PM EDT Office Visit Dermatology at [address] [place] [address] Francesco Chen MD [address] [place] [address], [place] [address] 12/29/2023 11:30 AM EDT Office Visit Hematology/Oncology at [address] [phone] Yousif Garcia MD [facility] [place] [address] Julianna Cartwright APRN [address] [place] [address] HEMATOLOGY AND ONCOLOGY [place], [place] [id number] 12/29/2023 12:00 PM EDT Infusion Hematology Oncology at [address] [phone] documented as of this encounter Visit Diagnoses Diagnosis Ampullary carcinoma Malignant neoplasm of ampulla of Vater documented in this encounter Care Teams Furnace Charging Machine Operator Relationship Specialty Start Date End Date Betzaida Avila MD [address] [address] PCP - General Family Medicine 11/30/21 documented as of this encounter
--- OUTSIDE RECORDS SUMMARY | 2023-12-15 01:33 | XMS_ITS | Encounter Summary ---
Author Organization [facility] [place] [address] Care Team Providers Care Morgue Technician Name Role Phone Betzaida Avila MD Primary Care Provider [phone] [phone] Encounter Details Date Type Department Care Team (Late Contact Info) Description 12/07/2023 Orders Only Hematology [place] [address] Yousif Garcia MD [facility] [place] [address] Social History Tobacco Use Types Packs/Day Years [...] 9:00 AM EDT Infusion Hematology Oncology at [address] [phone] 12/26/2023 3:45 PM EDT Office Visit Dermatology at [place] [address] [facility] [place] [address] Francesco Chen MD [address] [facility], [place] [address] 12/29/2023 11:30 AM EDT Office Visit Hematology/Oncology at [address] [phone] Yousif Garcia MD [facility] [place] [address] Julianna Cartwright APRN [address] [place] [address] DR [place] [address] 12/29/2023 12:00 PM EDT Infusion Hematology Oncology at [address] [phone] documented as of this encounter Visit Diagnoses Not on filedocumented in this encounter Care Teams Morgue Technician Relationship Specialty Start Date End Date Betzaida Avila MD [address] [place] [address] PCP - General Family Medicine 11/30/21 documented as of this encounter
--- OUTSIDE RECORDS SUMMARY | 2023-12-15 01:33 | XMS_ITS | Encounter Summary ---
Author Organization [facility] [place] [address] Care Team Providers Care Sterile Technician Name Role Phone Betzaida Avila MD Primary Care Provider [phone] [phone] Encounter Details Date Type Department Care Team (Late st Contact Info) Description 11/02/2023 Notes [place] [phone] Loren Vasquez Social History Tobacco Use Types Packs/Day Years [...] as of this encounter Progress Notes * Loren Vasquez - 11/02/2023 12:59 PM EDT SOCCER: Study Of forCeps Cannulation during ERcp PI: Nitish Brown MD MS [place] # [id number] Objective of visit: Loren Heath , research coordinator, and Dr. Lee and Dr. Vallejo met with Prerna Perez in [facility] to provide information regarding protocol [id number], answer questions or concerns about study plan, and evaluate their interest in study participation. Information Provided: Protocol was reviewed with Prerna Perez including, a description of the proposed care, treatment, services, medications, interventions, procedures, and follow-up including duration of subject's participation in study. Purpose of the study was also reviewed with the patient. Potential discomforts and risks were reviewed. The patient was informed regarding the uncertainties, both in terms of benefits as well as risks that are part of participation in clinical trials. Discussed confidentiality of patient's health information as specified in the protocol. Patient was advised that they may discontinue treatment at any time and that refusing to participate or discontinuing treatment will not compromise the patient's access to treatment options or care. Financial considerations in the context of clinical trials reviewed. The patient was given written information regarding the protocol during their visit on 11/02/23 andwas offered adequate time to review the information. The patient was given adequate time to ask questions and review concerns, all of which were answered to the patient's satisfaction by Dr. Lee and Dr. aVllejo The PI/Sub I was available to answer any medical related questions if applicable. Prerna Perezinquired if the doctor was able to decide what to do during the procedure. Assessment/Outcome: Prerna Perez verbalized understanding of the protocol and consents for treatment by using the teach-back method and being able to relay the purpose of the study and known possible risks/side effects of the procedure and treatment. Prerna Perez signed and dated consent version 1 on 11/02/23 . A copy of the signed consent form was given to them for their records. Original, signed informed consent document will be scanned into the patient's electronic medical record and stored in the subject's study binder. Written informed consent was obtained prior to any study related procedures being done. Plan: Prerna Perez agreed to participate in the above mentioned clinical trial. Informed consent form signed Patient will continue to be screened on study [id number] to determine if patient meets criteria during the procedure During ERCP for Prerna Perez , the patient had an ampullar mass discovered. The patient was consequently not enrolled in the SOCCER study. Patient will be informed that they are no longer in thestudy following the procedure and will continue to be treated with standard of care. documented in this encounter Plan of Treatment Upcoming Encounters Date Type Department Care Team (Late st Contact Info) Description 12/15/2023 9:00 AM EDT Infusion Hematology Oncology at [address] [phone] 12/26/2023 3:45 PM EDT Office Visit Dermatology at [place] [address] [place] [address] Francesco Chen MD [address], [place] [address] 12/29/2023 11:30 AM EDT Office Visit Hematology/Oncology at [address] [phone] Yousif Garcia MD [facility] [place] [address] Julianna Cartwright [address] HEMATOLOGY AND ONCOLOGY [place], [place] [address] 12/29/2023 12:00 PM EDT Infusion Hematology Oncology at [address] [phone] documented as of this encounter Visit Diagnoses Not on filedocumented in this encounter Care Teams Sterile Technician Relationship Specialty Start Date End Date Betzaida Avila MD [address] [place] [address] PCP - General Family Medicine 11/30/21 documented as of this encounter
--- OUTSIDE RECORDS SUMMARY | 2023-12-15 01:33 | XMS_ITS | Encounter Summary ---
Author Organization [facility] [place] [address] Care Team Providers Care Fly Maker Name Role Phone Betzaida Avila MD Primary Care Provider [phone] [phone] Encounter Details Date Type Department Care Team (Latest Contact Info) Description 11/21/2023 Travel Social History Tobacco Use Types Packs/Day [...] 9:00 AM EDT Infusion Hematology Oncology at [address] [phone] 12/26/2023 3:45 PM EDT Office Visit Dermatology at [address] [place] [phone] Francesco Chen MD [address] [facility], [place] [address] 12/29/2023 11:30 AM EDT Office Visit Hematology/Oncology at [address] [phone] Yousif Garcia MD [facility] [place] [address] Julianna Cartwright APRN [address] [place] [address] DR HEMATOLOGY AND ONCOLOGY [place], [place] [id number] 12/29/2023 12:00 PM EDT Infusion Hematology Oncology at [address] [phone] documented as of this encounter Visit Diagnoses Not on filedocumented in this encounter Care Teams Fly Maker Relationship Specialty Start Date End Date Betzaida Avila MD [address] [place] [address] PCP - General Family Medicine 11/30/21 documented as of this encounter
--- OUTSIDE RECORDS SUMMARY | 2023-12-15 01:33 | XMS_ITS | Encounter Summary ---
Author Organization [facility] [place] [address] Care Team Providers Care Equipment Validation Engineer Name Role Phone Betzaida Avila MD Primary Care Provider [phone] [phone] Encounter Details Date Type Department Care Team (Latest Contact Info) Description 11/17/2023 7:00 PM EDT Ancillary Procedure Radiology Library at [facility] [place] [place] [address] Fadi Willson MD [facility] [place] [address] Neoplasm of ampulla Social History Tobacco Use Types Packs/Day Years [...] 9:00 AM EDT Infusion Hematology Oncology at [address] [phone] 12/26/2023 3:45 PM EDT Office Visit Dermatology at [place] [address] [facility] [place] [address] Francesco Chen MD [address] [facility] [address], [place] [address] 12/29/2023 11:30 AM EDT Office Visit Hematology/Oncology at [address] [phone] Yousif Garcia MD [facility] [place] [place] [address] Julianna Cartwright APRN [address] [place] [address] DR HEMATOLOGY AND ONCOLOGY [place], [place] [id number] 12/29/2023 12:00 PM EDT Infusion Hematology Oncology at [address] [phone] documented as of this encounter Procedures Procedure Name Priority Date/Time Associated Diagnosis Comments REQUEST FOR 2ND READ CT ABDOMEN AND PELVIS Routine 11/17/2023 6:46 PM EDT Neoplasm of ampulla documented in this encounter Results * (ABNORMAL) Request For 2nd Read CT Abdomen & Pelvis (11/17/2023 6:46 PM EDT) [employer] WORKSTATION ID [id number] RAD Anatomical Region Laterality Modality Abdomen, Pelvis [...] who have questions please contact the health child care director that requested your imaging first. ? Electronically signed by: Marbella Nazario MD, [facility] ([phone]), at 11/18/2023 9:36 AM Narrative 11/18/2023 9:36 AM EDT EXAMINATION: REQUEST FOR 2ND READ CT ABDOMEN AND PELVIS CLINICAL HISTORY: Pt with ampullary adenocarcinoma, staging scan; Sending Institution [facility]; Date of exam [id number]; I believe a reinterpretation of this exam may alter care of Patient. Yes D49.0, Neoplasm of unspecified behavior of digestive system TECHNIQUE: Helical CT of the abdomen and pelvis following the intravenous administration of contrast. 100 cc Isovue-300 intravenous contrast. Oral contrast was not administered. Study performed October 31, 2023 [facility]. COMPARISON: None FINDINGS: Lower chest: No [...] Willson MD IMG OUTSIDE INTERPRE TATION ORDERABLES documented in this encounter Visit Diagnoses Diagnosis Neoplasm of ampulla Neoplasm of unspecified nature of digestive system documented in this encounter Care Teams Equipment Validation Engineer Relationship Specialty Start Date End Date Betzaida Avila MD [address] [facility] [place] [address] PCP - General Family Medicine 11/30/21 documented as of this encounter
--- OUTSIDE RECORDS SUMMARY | 2023-12-15 01:33 | XMS_ITS | Encounter Summary ---
[place] [address] Care Team Providers Care Rn Telephone Triage Name Role Phone Betzaida Avila MD Primary Care Provider [phone] [phone] Reason for Referral * Diagnostic Test (Routine) - Closed Specialty Diagnoses / Procedures Referred By Contac t Referred To Contact Radiology Diagnoses Ampullary carcinoma Procedures IR Mediport Placement Luis Rosas MD [facility] [place] [address] [place] [address] Referral ID Status Reason Start Date Expiration Date V isits Requested Visits Authorized [id number] Closed Specialty Service Requested 11/28/2023 05/27/2025 1 1 * Diagnostic Test (Routine) - Closed Specialty Diagnoses / Procedures Referred By Contac t Referred To Contact Radiology Diagnoses Ampullary carcinoma Procedures NM PET CT Skull Base to Mid-thigh Luis Rosas MD [facility] [place] [address] [place] [address] Referral ID Status Reason Start Date Expiration Date V isits Requested Visits Authorized [id number] Closed Specialty Service Requested 11/28/2023 05/27/2025 1 1 Encounter Details Date Type Department Care Team (Late Contact Info) Description 11/28/2023 Orders Only Hematology [place] [address] Luis Rosas MD [facility] [place] [address] Ampullary carcinoma Social History Tobacco Use Types [...] 9:00 AM EDT Infusion Hematology Oncology at [address] [phone] 12/26/2023 3:45 PM EDT Office Visit Dermatology at [address] [place] [address] Francesco Chen MD [address] [place] [address], [place] [address] 12/29/2023 11:30 AM EDT Office Visit Hematology/Oncology at [address] [phone] Yousif Garcia MD [facility] [place] [place] [address] Julianna Cartwright APRN [address] [place] [address] DR HEMATOLOGY AND ONCOLOGY [place], [place] [address] 12/29/2023 12:00 PM EDT Infusion Hematology Oncology at [address] [phone] documented as of this encounter Results * NM PET CT Skull Base to Mid-thigh (12/08/2023 1:22 PM EDT) WORKSTATION ID [id number] RAD Anatomical Region Laterality Modality Positron Emissio [...] who have questions please contact the health intensive care anaesthetist that requested your imaging first. ? Electronically signed by: Cy Roberts MD, [facility] ([phone]), at 12/12/2023 9:53 AM Narrative 12/12/2023 9:53 AM EDT EXAMINATION: NM PET CT STANDARD SKULL BASE TO MID-THIGH CLINICAL HISTORY: Ampullary carcinoma with one proven metastasis (left supraclavicular lymph node, an ultrasound-guided biopsy 11/24/2023). ??Is this oligometastatic disease?. Initial staging exam. 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 Small hiatal hernia. Left ovarian 4.8 cm cystic lesion, present on CT of 10/31/2023 and out of the [id number] on MRI of 11/01/2023. SKELETON/EXTREMITIES: Normal activity [...] of Vater TECHNIQUE: Following IV injection of 23-gpomgj-9-deoxyglucose (FDG) astandard uptake of approximately 60 minutes, [...] precaval and aortocaval lymph nodes (images 138-175)with paper sales representative aortocaval node measuring 2.6 cm (image 147). Small hiatal hernia. Left ovarian 4.8 cm cystic lesion, present on CT of 10/31/2023 and out ofthe lsfxa-de-plvp on MRI of 11/01/2023. SKELETON/EXTREMITIES: Normal activity [...] patients who have questions please contactthe health intensive care anaesthetist that requested your imaging first. Electronically signed by: Cy Roberts MD, [facility]([phone]), at 12/12/2023 9:53 AM Luis Rosas MD IMG PET ORDERABLE S * IR Mediport Placement (12/08/2023 11:36 AM EDT) Anatomical Region Laterality Modality X-Ray Angiograph y Narrative 12/08/2023 12:01 PM EDT Interventional Radiology Procedure Note Procedure: Chest port implant Indication: Ampullary carcinoma, durable usp central venous access for chemotherapy Procedure summary: [...] junction. The port may be used immediately. rig operator: Christian Lara PA-C Attending of record: Pb Blank MD 12/08/2023 I, Dr. Blank, was not present for this procedure. Luis Rosas MD IMG IR ORDERABLES documented in this encounter Visit Diagnoses Diagnosis Ampullary carcinoma Malignant neoplasm of ampulla of Vater Ampullary carcinoma Malignant neoplasm of ampulla of Vater Ampullary carcinoma Malignant neoplasm of ampulla of Vater documented in this encounter Care Teams Rn Telephone Triage Relationship Specialty Start Date End Date Betzaida Avila MD [address] [place] [address] PCP - General Family Medicine 11/30/21 documented as of this encounter
--- OUTSIDE RECORDS SUMMARY | 2023-12-15 01:33 | XMS_ITS | Encounter Summary ---
Author Organization [facility] [place] [address] Care Team Providers Care Fly Tier Name Role Phone Betzaida Avila MD Primary Care Provider [phone] Encounter Details Date Type Department Care Team (Latest Contact Info) Description 11/24/2023 Travel Social History Tobacco Use Types Packs/Day [...] 9:00 AM EDT Infusion Hematology Oncology at [address] [phone] 12/26/2023 3:45 PM EDT Office Visit Dermatology at [address] [place] [phone] Francesco Chen MD [address] [facility], [place] [address] 12/29/2023 11:30 AM EDT Office Visit Hematology/Oncology at [address] [phone] Yousif Garcia MD [facility] [place] [address] Julianna Cartwright APRN [address] [place] [address] DR HEMATOLOGY AND ONCOLOGY [place], [place] [id number] 12/29/2023 12:00 PM EDT Infusion Hematology Oncology at [address] [phone] documented as of this encounter Visit Diagnoses Not on filedocumented in this encounter Care Teams Fly Tier Relationship Specialty Start Date End Date Betzaida Avila MD [address] [place] [address] PCP - General Family Medicine 11/30/21 documented as of this encounter
--- OUTSIDE RECORDS SUMMARY | 2023-12-15 01:33 | XMS_ITS | Encounter Summary ---
[place] [address] Care Team Providers Care Guide Winder Name Role Phone Betzaida Avila MD Primary Care Provider [phone] [phone] Encounter Details Date Type Department Care Team (Latest Contact Info) Description 11/17/2023 12:23 PM EDT - 11/17/2023 2:59 PM EDT Hospital Encounter Hematology [place] [address] Ampullary carcinoma; Neoplasm of ampulla; Malignant neoplasm of duodenum Discharge Disposition: Home Social History Tobacco Use [...] 9:00 AM EDT Infusion Hematology Oncology at [address] [phone] 12/26/2023 3:45 PM EDT Office Visit Dermatology at [address] [place] [address] Francesco Chen MD [address] [facility], [place] [address] 12/29/2023 11:30 AM EDT Office Visit Hematology/Oncology at [address] [phone] Yousif Garcia MD [facility] [place] [address] Julianna Cartwright [address] HEMATOLOGY AND ONCOLOGY [place], [place] [address] 12/29/2023 12:00 PM EDT Infusion Hematology Oncology at [address] [phone] documented as of this encounter Procedures Procedure Name Priority Date/Time Associated Diagnosis Comments CARBOHYDRATE ANTIGEN 19-9 Routine 11/17/2023 12:29 PM EDT Ampullary carcinoma CBC (WITH DIFF) Routine 11/17/2023 12:29 PM EDT Ampullary carcinoma CEA Add-On 11/17/2023 12:29 PM EDT Neoplasm of ampulla Malignant neoplasm of duodenum COMPREHENSIVE METABOLIC PANEL Routine 11/17/2023 12:29 PM EDT Ampullary carcinoma documented in this encounter Results * CEA (11/17/2023 12:29 PM EDT) Carcinoembryonic Antigen 2.3 <=3.8 ng/ml 11/17/2023 1:19 PM EDT [facility] Comment: Some smokers may have elevated CEA, generally < 5.5 ng/mL. This result was generated using a Connor Yamila immunoassay. ??Results obtained from other methods or manufacturers cannot be used interchangeably with this method. Blood VENOUS BLOOD SPECIMEN / Unknown Venipuncture / Unknown 11/17/2023 12:29 PM EDT 11/17/2023 12:29 PM EDT Fadi Willson MD CHEMISTRY ORDERABLES Performing Organization Address [facility] [[email or web address]] Co de Phone Number [facility] [place] [address] * Carbohydrate Antigen 19-9 (11/17/2023 12:29 PM EDT) CA 19-9 33.8 <=35.0 units/mL 11/17/2023 1:19 PM EDT [facility] Comment:This result was gene rated using a Connor Yamila immunoassay. Results obtained from other methods or manufacturers cannot be used interchangeably with this method. Blood VENOUS BLOOD SPECIMEN / Unknown Venipuncture / Unknown 11/17/2023 12:29 PM EDT 11/17/2023 12:29 PM EDT Luis Rosas MD CHEMISTRY ORDERAB LES Performing Organization Address City/[facility]/ZIP Co de Phone Number [facility] [place] [address] * (ABNORMAL) Comprehensive metabolic panel (11/17/2023 12:29 PM EDT) Glucose 112 65 - 199 mg/dL 11/17/2023 1:09 PM EDT [facility] Comment:Glucose Concentratio n >=200 mg/dL plus symptoms is consistent with Diabetes Mellitus. Blood Urea Nitrogen 14 8 - 18 mg/dL 11/17/2023 1:[address] [facility] Creatinine 0.90 0.70 - 1.20 mg/dL 11/17/2023 1:[address] [facility] Sodium 138 135 - 145 mMol/L 11/17/2023 1:[address] [facility] Potassium 4.1 3.5 - 5.0 mMol/L 11/17/2023 1:[address] [facility] Chloride 103 98 - 107 mMol/L 11/17/2023 1:[address] [facility] Carbon Dioxide 24 22 - 31 mMol/L 11/17/2023 1:[address] [facility] Anion Gap 11 5 - 15 mMol/L 11/17/2023 1:[address] [facility] Calcium 10.0 8.5 - 10.5 mg/dL 11/17/2023 1:[address] [facility] Protein, Total 7.1 6.1 - 8.0 g/dL 11/17/2023 1:[address] [facility] Albumin 4.4 3.2 - 5.2 g/dL 11/17/2023 1:[address] [facility] Aspartate Aminotransferase 28 <=30 unit/L 11/17/2023 1:[address] [facility] Alanine Aminotransferase 51(H) 0 - 30 unit/L 11/17/2023 1:[address] [facility] Alkaline Phosphatase 302(H) 35 - 105 unit/L 11/17/2023 1:[address] [facility] Bilirubin, Total 0.8 <=1.3 mg/dL 11/17/2023 1:[address] [facility] Est Glomerular Filtration Rate - Female 67 mL/min/1. 73 m?? 11/17/2023 1:[address] [facility] Comment: This patient's estimated GFR [...] Fasting Status No 11/17/2023 1:09 PM EDT [facility] Blood VENOUS BLOOD SPECIMEN / Unknown Venipuncture / Unknown 11/17/2023 12:29 PM EDT 11/17/2023 12:29 PM EDT Luis Rosas MD CHEMISTRY ORDERAB LES [facility] [place] [address] * (ABNORMAL) CBC (with Diff) (11/17/2023 12:29 PM EDT) White Blood Cell 4.86 4.00 - 9.50 x10(3)/mc L 11/17/2023 12:44 PM EDT [facility] Red Blood Cell 3.61(L) 4.00 - 5.21 x10(6)/mc L 11/17/2023 12:[address] [facility] Hemoglobin 12.8 11.7 - 15.5 g/dL 11/17/2023 12:44 PM EDT [facility] Hematocrit 37.4 35.7 - 45.8 % 11/17/2023 12:44 PM EDT [facility] Mean Cell Volume 103.6(H) 82.6 - 94.4 fL 11/17/2023 12:44 PM T [facility] Mean Cell Hemoglobin 35.5(H) 27.1 - 32.0 pg 11/[facility]23 [facility] Mean Cell Hemoglobin Concentration 34.2 31.7 - 35.0 g/dL 11/17/2023 12:[address] [facility] Platelet 298 145 - 357 x10(3)/mc L 11/17/2023 12:[address] [facility] Mean Platelet Volume 10.5 7.6 - 12.9 fL 11/17/2023 12:[address] [facility] RDW Standard Deviation 49.1(H) 37.0 - 46.0 fL 11/17/2023 12:[address] [facility] RDW coefficient of variation 12.9 11.5 - 14.1 % 11/17/2023 12:[address] [facility] NRBC% auto 0.0 % 11/17/2023 12:[address] [facility] NRBC Absolute 0.00 0.00 - 0.00 x10(3)/mc L 11/17/2023 12:[address] [facility] Neutrophil % 42.4 % 11/17/2023 12:[address] [facility] Neutrophil Absolute (ANC) - Automated 2.06 1.70 - 6.10 x10(3)/mc L 11/17/2023 12:[address] [facility] Lymph % 42.4 % 11/17/2023 12:[address] [facility] Lymph Absolute 2.06 0.90 - 3.20 x10(3)/mc L 11/17/2023 12:[address] [facility] Monocyte % 11.9 % 11/17/2023 12:[address] [facility] Monocyte Absolute 0.58 0.30 - 0.90 x10(3)/mc L 11/17/2023 12:[address] [facility] Eos % 1.9 % 11/17/2023 12:[address] [facility] Eos Absolute 0.09 0.00 - 0.40 x10(3)/mc L 11/17/2023 12:[address] [facility] Basophil % 1.2 % 11/17/2023 12:44 PM EDT [facility] Baso Absolute 0.06 0.00 - 0.10 x10(3)/mc L 11/17/2023 12:44 PM EDT [facility] Immature Gran % 0.2 % 12:44 PM EDT [facility] Immature Gran Absolute 0.01 0.00 - 0.04 x10(3)/mc L 11/17/2023 12:44 PM EDT [facility] Blood VENOUS BLOOD SPECIMEN / Unknown Venipuncture / Unknown 11/17/2023 12:29 PM EDT 11/17/2023 12:29 PM EDT Luis Rosas MD HEMATOLOGY ORDERA BLES [facility] [place] [address] documented in this encounter Visit Diagnoses Diagnosis Ampullary carcinoma Malignant neoplasm of ampulla of Vater Neoplasm of ampulla Neoplasm of unspecified nature of digestive system Malignant neoplasm of duodenum documented in this encounter Care Teams Guide Winder Relationship Specialty Start Date End Date Betzaida Avila MD [address] [place] [address] PCP - General Family Medicine 11/30/21 documented as of this encounter
--- OUTSIDE RECORDS SUMMARY | 2023-12-15 01:33 | XMS_ITS | Encounter Summary ---
Author Organization Formerly [facility] [place] [address] Care Team Providers Care Plate Colorer Name Role Phone Betzaida Avila MD Primary Care Provider [phone] Encounter Details Date Type Department Care Team (Late Contact Info) Description 11/22/2023 Orders Only Hematology [place] [address] Luis Rosas MD [facility] [place] [address] Ampullary carcinoma Social History Tobacco Use Types [...] 9:00 AM EDT Infusion Hematology Oncology at [address] [phone] 12/26/2023 3:45 PM EDT Office Visit Dermatology at [place] [address] [facility] [place] [address] Francesco Chen MD [address] [facility] [place] [address] 12/29/2023 11:30 AM EDT Office Visit Hematology/Oncology at [address] [phone] Yousif Garcia MD [facility] [place] [address] Julianna Cartwright APRN [address] [place] [address] DR HEMATOLOGY AND ONCOLOGY [place], [place] [id number] 12/29/2023 12:00 PM EDT Infusion Hematology Oncology at [address] [phone] documented as of this encounter Results * PGx Oncology (11/24/2023 10:53 AM EDT) NGS Report Status Normal 12/05/2023 5:54 AM EDT [facility] Blood VENOUS BLOOD SPECIMEN / Unknown Venipuncture / Unknown 11/24/2023 10:53 AM EDT 11/24/2023 10:53 AM EDT Luis Rosas MD MOLECULAR ORDERAB LES [facility] [place] [address] documented in this encounter Visit Diagnoses Diagnosis Ampullary carcinoma Malignant neoplasm of ampulla of Vater documented in this encounter Care Teams Plate Colorer Relationship Specialty Start Date End Date Betzaida Avila MD [address] [place] [address] PCP - General Family Medicine 11/30/21 documented as of this encounter
--- OUTSIDE RECORDS SUMMARY | 2023-12-15 01:33 | XMS_ITS | Encounter Summary ---
Author Organization [facility] [place] [address] Care Team Providers Care Check Airman Name Role Phone Betzaida Avila MD Primary Care Provider [phone] Reason for Visit * Reason Comments Advice Only * Consultation (Urgent) - Closed Specialty Diagnoses / Procedures Referred By Elisha fishman Referred To Contact Hematology and Oncology Diagnoses Primary adenocarcinoma of ampulla of Vater Loren Vallejo MD [facility] [place] [address] [facility] Hem On[facility] [address] [place] [address] Referral ID Status Reason Start Date Expiration Date V isits Requested Visits Authorized [id number] Closed Consult, Test & Treat 11/07/2023 11/06/2024 1 1 Encounter Details Date Type Department Care Team (Late st Contact Info) Description 11/17/2023 11:00 AM EDT Office Visit [place] [address] Luis Rosas MD [facility] [place] [address] Ampullary carcinoma Social History Tobacco Use Types [...] Sign Reading Time Taken Comments Blood Pressure 140/77 11/17/2023 11:13 AM EDT Pulse 66 11/17/2023 11:13 AM EDT Temperature 36.3 ??C (97.3 ??F) 11/17/2023 11:13 AM E DT Respiratory Rate 17 11/17/2023 11:13 AM EDT Oxygen Saturation 98% 11/17/2023 11:13 AM EDT Inhaled Oxygen Concentration - - Weight 85.5 kg (188 lb 7.9 oz) 11/17/2023 11:13 AM EDT Height 167.6 cm (5' 5.98) 11/17/2023 11:13 AM E DT Body Mass Index 30.44 11/17/2023 11:13 AM EDT documented in this encounter Progress Notes * Luis Rosas MD - 11/17/2023 11:00 AM EDT [facility] New Patient Visit Patient name: Prerna Perez PCP: Betzaida Avila MD Referring physician: Loren Vallejo MD Date of visit: 11/17/2023 Reason for visit: Newly diagnosed pMMR ampullary adenocarcinoma, minimum stage IIIA. Assessment: Prerna Perez is a 73 y.o. female with newly diagnosed ampullary adenocarcinoma who was sent to our clinic for further evaluation and management. Initial workup for suspected ampullary cancer usually include CT of abdomen/pelvis per pancreatic protocol, EGD+/- EUS, colonoscopy, if not done recently, CA 19-9, CEA, liver function, and ERCP, if needed. In patients with advanced or metastatic disease NGS should be done. We discussed with the patient and her sister current recommendation o9f NCCN guidelines for treatment of localized disease which include surgery (preferred) or consideration of neoadjuvant therapy with possible chemoradiation. The patient will be seen today by surgeon Dr. Willson who will decide what imaging study will be required as well as address colonoscopy recommendation. I explained to the patient that after surgery the patient will require additional systematic therapy with possible chemoradiation. Laboratory workupwhich included tumor markers (CEA and CA 19-9), CMP, PGx test, and further workup for histological subtype (pancreatobiliary versus intestinal). NGS will be ordered after surgical decision about possibility of surgery. I will reach Dr. Willson forfurther evaluation and management. I am thinking that it will be a good idea to discuss this patient on GI tumor board after additional workup will be done. If surgery will be done I will see patientin follow-up 3 weeks after surgery or very soon if neoadjuvant therapy will require. The patient and her sister understand and agreed with this plan. Recommendations/Plan: Laboratory workup including CEA and CA 19-9. (I was not able to order CEA with current diagnosis. Dr. Willson ordered it). PGx test A second reading of MRI and CT scan. (My order CT scan was refused and canceled). Additional pathology workup for histologic subtype (pancreatobiliary versus intestinal) Encounter Diagnosis Name Primary? Ampullary carcinoma Orders Placed This Encounter Procedures Request for 2nd read MR Abdomen CBC (with Diff) Comprehensive metabolic panel Non-fasting Carbohydrate Antigen 19-9 PGx Oncology History of Present Illness: Prerna Perze is a 73 y.o. female referred by Dr. Vallejo for newly diagnosed ampullary adenocarcinoma with lymph node involvement. Initially, Prerna noticed that she had very dark urine and presented with this complaints on 10/30/2023 to PCP where she was seen by PA. During her visit she developed some dizziness which responded tooral hydration. Laboratory workup was ordered. The patient was called and told that her LFT was abnormal. The next day she again was dizzy and was recommended to presented to emergency room. In the emergency room CT scan of abdomen and pelvis was done and patient was admitted for further investigation. On 11/01/2023. MRI of the abdomen prior to and following the intravenous administration of MultiHance was done. MRCP included. 1. Ampullary mass in the duodenal lumen is 1.7 cm. Associated severe dilatation of the pancreatic and bile ducts. 2. Mild marc hepatis lymphadenopathy. The patient was transferred to [facility] for further management. Upper EUS found: Impression: Mild Schatzki ring. A 2cm ulcerated mass was found in the ampulla with upstream 5mm ductal dilation of bile duct and [id number] pancreatic duct associated with lymphadenopathy-s/p FNA. Fatty liver. Gallbladder sludge. 11/02/2023 ERCP reported: Impression: The entire main bile duct was dilated, with 20mm ampullary mass causing an obstruction.A biliary sphincterotomy was performed. One plastic stent was placed into the common bile duct. Biopsies were performed of the ampullary mass. Pathology reported: Ampulla, Biopsy: - Adenocarcinoma, poorly differentiated (See Note). Note: Immunostains for MLH1, MSH2, MSH6 and PMS2 reveal intact nuclear staining in tumor cells Lymph Node: carly-ampullary (EUS-guided FNA): Compatible with metastatic adenocarcinoma. The patient presented today for further evaluation and management newly diagnosed pMMR ampullary adenocarcinoma Patient Active Problem List Diagnosis Code Chest pain R07.9 Diverticulosis of both small and large intestine without perforation or abscess without bleeding K57.50 Gout, unspecified M10.9 Osteopenia M85.80 Hypothyroidism E03.9 Primary adenocarcinoma of ampulla of Vater C24.1 Past Medical History: Diagnosis Date Gout Hypothyroidism Osteopenia Primary adenocarcinoma of ampulla of Vater Past Surgical History: Procedure Laterality Date PRO ENDOSCOPIC US EXAM, ESOPH N/A 11/02/2023 UPPER EUS- ENDOSCOPIC ULTRASOUND (WRVU 3.47) performed by Ferdinand Lee MD at [facility] ENDOSCOPY PRO ERCP STENT PLACEMENT BILIARY OR PANCREATIC DUCT 11/02/2023 ERCP, W PLCMNT ENDOSCOPIC STENT BILIARY OR PANCREATIC DUCT (WRVU 8.48) performed by Ferdinand Lee MD at [facility] ENDOSCOPY PRO ERCP, SPHINCTEROTOMY 11/02/2023 ERCP W/SPHINCTEROTOMY/PAPILLOTOMY (WRVU 6.5) performed by Ferdinand Lee MD at [facility] ENDOSCOPY PRO ERCP,DIAGNOSTIC N/A 11/02/2023 ERCP (WRVU 5.85) performed by Ferdinand Lee MD at [facility] ENDOSCOPY PRO FINE NEEDLE ASPIRATION BX W/US GDN 1ST LESION 11/02/2023 FINE NEEDLE ASPIRATION BIOPSY, INC US GUIDANCE; FIRST LESION (WRVU 1.46) performed by Ferdinand Lee MD at [facility] ENDOSCOPY PRO NJX CHOLANGIO PRQ W/IMG GID RS&I NEW ACCESS N/A 11/02/2023 CHOLANGIOGRAM INJECTION PROCEDURE, W IMG GUIDANCE, NEW ACCESS (WRVU 4.25) performed by Ferdinand Lee MD at [facility] ENDOSCOPY PRO UPPER GI ENDOSCOPY, BIOPSY N/A 11/02/2023 EGD WITH BIOPSY (WRVU 2.39) performed by Ferdinand Lee MD at [facility] ENDOSCOPY Family History Problem Relation Age of Onset Diabetes Mother Coronary Artery Disease Mother Glaucoma Mother Dementia Mother Coronary Artery Disease Father Alcohol Use Disorder Sister Breast Cancer Sister Mental Illness Brother Social History Socioeconomic History Marital status: Spouse name: Not on file Number of children: Not on file Years of education: Not on file Highest education level: Not on file Occupational History Not on file Tobacco Use Smoking status: Former Current packs/day: 1.00 Average packs/day: 1 pack/day for 10.0 years (10.0 ttl pk-yrs) Types: Cigarettes Smokeless tobacco: Never Substance and Sexual Activity Alcohol use: Yes Alcohol/week: 3.0 standard drinks of alcohol Types: 3 Glasses of wine per week Comment: 3 glasses daily Drug use: Never Sexual activity: Not on file Other Topics Concern Not on file Social History Narrative Not on file Social Determinants of Health Financial Resource Strain: Not on file Food Insecurity: Not on file Transportation Needs: Not on file Physical Activity: Not on file Intimate Partner Violence: Not on file Housing Stability: Not on file No Known Allergies Reviewed Medications: Current Outpatient Medications: allopurinoL (Zyloprim) 100 mg Tablet, TAKE 2 [...] mouth three times a week (Mon, Weds, Mon)., Disp: , Rfl: cholecalciferol, Vitamin D3, 25 mcg (1,000 unit) Capsule, Take 1,000 each by mouth daily., Disp: , Rfl: alendronate (Fosamax) 70 mg tablet, Take 70 mg by mouth every 7 days. Take in AM with full glass ofwater, on an empty stomach. Do not lie down for 30 min., Disp: , Rfl: REVIEW OF SYSTEMS: General: The patient denies any fever chills night sweats. Appetite is O.K. Prerna lose some weight (8 pounds in 2 and half weeks) after she stopped drinking his 3 glasses of wine with dinner. HEENT: No headaches Eyes: No recent change in vision: Double vision or blurry vision. Hearing: The patient reported diminished hearing. Oropharynx: The patient denies pain in mouth, odynophagia or dysphagia. Pulmonary: No dyspnea, cough or hemoptysis. Cardiac: No chest pain, palpitations of the heart. No dyspnea on exertion. No orthopnea or paroxysmal nocturnal dyspnea Gastrointestinal: No odynophagia or dysphagia. The patient denies abdominal pain, nausea or vomiting, diarrhea or constipation. No hematochezia. Genitourinary: No dysuria, hesitancy, hematuria. Nocturia 2-3 times per night. Musculoskeletal: Occasionally, low back pain secondary to history of compression fracture.. Skin: No rash or itching. No moles which change in size, shape and color. The patient regular follow-up with bioinformatics technician. Endocrine: No polydipsia or polyuria. Hematologic: No bleeding or bruising. Neurological: Recently, couple of episodes of tingling in toes. No loss of consciousness or change in mental status.. Psychiatric: The patient denies suicidal thoughts. Prerna reported to be mildly depressed since lastyear. Physical examination: Patient Vitals for the past 24 hrs: Temp Pulse Resp BP SpO2 11/17/23 1113 36.3 ??C (97.3 ??F) 66 17 140/77 98 % ECOG PS: 0 General: The patient in no acute distress. She appears her age. HEENT: normocephalic, atraumatic Hearing: Minimally diminished hearing bilaterally. Eyes: Sluggishly reactive to light. Extraocular movements are intact. Sclera is anicteric, conjunctive are pink. Oropharynx: a pink moist mucosa, no mucositis or thrush noted. Lymphatic: There are no occipital, submandibular, cervical, supraclavicular, or axillary lymph nodes noted bilaterally. Pulmonary: Lungs are clear to auscultation. No wheezing or rales. Cardiac: Regular rate and rhythm without murmur, gallops, or rubs. Gastrointestinal: Abdomen is soft, non tender. No guarding or rebound. Bowel sounds present. No hepatosplenomegaly. Musculoskeletal: Extremities: No calf tenderness. No legs edema. Skin: Warm and dry. No obvious rash on exposed areas. No jaundice. Hematologic: No petechia. Neurological: Cranial nerves II-XII are grossly intact. Alert and oriented x3 Psychiatric:. Conversant, normal mood and affect. Recent Results (from the past 72 hour(s)) Request for 2nd read MR Abdomen Result Value Ref Range WORKSTATION ID [id number] CBC (with Diff) Result Value Ref Range White Blood Cell 4.86 4.00 - 9.50 x10(3)/mcL Red Blood Cell 3.61 (L) 4.00 - 5.21 x10(6)/mcL Hemoglobin 12.8 11.7 - 15.5 g/dL Hematocrit 37.4 35.7 - 45.8 % Mean Cell Volume 103.6 (H) 82.6 - 94.4 fL Mean Cell Hemoglobin 35.5 (H) 27.1 - 32.0 pg Mean Cell Hemoglobin Concentration 34.2 31.7 - 35.0 g/dL Platelet 298 145 - 357 x10(3)/mcL Mean Platelet Volume 10.5 7.6 - 12.9 fL RDW Standard Deviation 49.1 (H) 37.0 - 46.0 fL RDW coefficient of variation 12.9 11.5 - 14.1 % NRBC% auto 0.0 % NRBC Absolute 0.00 0.00 - 0.00 x10(3)/mcL Neutrophil % 42.4 % Neutrophil Absolute (ANC) - Automated 2.06 1.70 - 6.10 x10(3)/mcL Lymph % 42.4 % Lymph Absolute 2.06 0.90 - 3.20 x10(3)/mcL Monocyte % 11.9 % Monocyte Absolute 0.58 0.30 - 0.90 x10(3)/mcL Eos % 1.9 % Eos Absolute 0.09 0.00 - 0.40 x10(3)/mcL Basophil % 1.2 % Baso Absolute 0.06 0.00 - 0.10 x10(3)/mcL Immature Gran % 0.2 % Immature Gran Absolute 0.01 0.00 - 0.04 x10(3)/mcL Comprehensive metabolic panel Result Value Ref Range Glucose 112 65 - 199 mg/dL Blood Urea Nitrogen 14 8 - 18 mg/dL Creatinine 0.90 0.70 - 1.20 mg/dL Sodium 138 135 - 145 mMol/L Potassium 4.1 3.5 - 5.0 mMol/L Chloride 103 98 - 107 mMol/L Carbon Dioxide 24 22 - 31 mMol/L Anion Gap 11 5 - 15 mMol/L Calcium 10.0 8.5 - 10.5 mg/dL Protein, Total 7.1 6.1 - 8.0 g/dL Albumin 4.4 3.2 - 5.2 g/dL Aspartate Aminotransferase 28 <=30 unit/L Alanine Aminotransferase 51 (H) 0 - 30 unit/L Alkaline Phosphatase 302 (H) 35 - 105 unit/L Bilirubin, Total 0.8 <=1.3 mg/dL Est Glomerular Filtration Rate - Female 67 mL/min/1.73 m?? Fasting Status No Carbohydrate Antigen 19-9 Result Value Ref Range CA 19-9 33.8 <=35.0 units/mL CEA Result Value Ref Range Carcinoembryonic Antigen 2.3 <=3.8 ng/ml This note was dictated using [employer] software. Please excuse for typographical/grammatical errors 74 minutes was spent with the patient, reviewing records, coordinating care, counseling, and documentation. Luis Rosas MD, PhD Medical Oncology - Gastrointestinal Cancer [facility] Office - [phone] / Pager - [phone] documented in this encounter Miscellaneous Notes * Addendum Note - Surinder Landry RN - 11/17/2023 11:00 AM EDTAddended by: SURINDER LANDRY on: 11/20/2023 10:35 AM Modules accepted: Orders documented in this encounter Plan of Treatment Upcoming Encounters Date Type Department Care Team (Late st Contact Info) Description 12/15/2023 9:00 AM EDT Infusion Hematology Oncology at [address] [phone] 12/26/2023 3:45 PM EDT Office Visit Dermatology at [place] [address] [facility] [place] [phone] Francesco Chen MD [address] [facility] [place] [address] 12/29/2023 11:30 AM EDT Office Visit Hematology/Oncology at [address] [phone] Yousif Garcia MD [facility] [place] [address] Julianna Cartwright APRN [address] [place] [address] [place] [address] 12/29/2023 12:00 PM EDT Infusion Hematology Oncology at [address] [phone] Scheduled Orders Name Type Priority Associated Diagnoses Orde r Schedule Anatomical Pathology Additional Testing Pathology/Cytol ogy Routine Ampullary carcinoma Ordered: 11/17/2023 documented as of this encounter Results * Carbohydrate Antigen 19-9 (11/17/2023 12:29 PM EDT) Pathologist [facility] CA 19-9 33.8 <=35.0 units/mL 11/17/2023 1:19 PM EDT [facility] Comment:This result was gene rated using a Connor Yamila immunoassay. Results obtained from other methods or manufacturers cannot be used interchangeably with this method. Blood VENOUS BLOOD SPECIMEN / Unknown Venipuncture / Unknown 11/17/2023 12:29 PM EDT 11/17/2023 12:29 PM EDT Luis Rosas MD CHEMISTRY ORDERAB LES [facility] [address] * (ABNORMAL) Comprehensive metabolic panel (11/17/2023 12:29 PM EDT) Pathologist [facility] Glucose 112 65 - 199 mg/dL 11/17/2023 1:09 PM EDT [facility] Comment:Glucose Concentratio n >=200 mg/dL plus symptoms is consistent with Diabetes Mellitus. Blood Urea Nitrogen 14 8 - 18 mg/dL 11/17/2023 1:09 PM [facility] Creatinine 0.90 0.70 - 1.20 mg/dL 11/17/2023 1:09 PM [facility] Sodium 138 135 - 145 mMol/L 11/17/2023 1:09 PM [facility] Potassium 4.1 3.5 - 5.0 mMol/L 11/17/2023 1:09 PM [facility] Chloride 103 98 - 107 mMol/L 11/17/2023 1:09 PM [facility] Carbon Dioxide 24 22 - 31 mMol/L 11/17/2023 1:09 PM [facility] Anion Gap 11 5 - 15 mMol/L 11/17/2023 1:09 PM [facility] Calcium 10.0 8.5 - 10.5 mg/dL 11/17/2023 1:09 PM [facility] Protein, Total 7.1 6.1 - 8.0 g/dL 11/17/2023 1:09 PM [facility] Albumin 4.4 3.2 - 5.2 g/dL 11/17/2023 1:09 PM [facility] Aspartate Aminotransferase 28 <=30 unit/L 11/17/2023 1:09 PM [facility] Alanine Aminotransferase 51(H) 0 - 30 unit/L 11/17/2023 1:09 PM [facility] Alkaline Phosphatase 302(H) 35 - 105 unit/L 11/17/2023 1:09 PM [facility] Bilirubin, Total 0.8 <=1.3 mg/dL 11/17/2023 1:09 PM [facility] Est Glomerular Filtration Rate - Female 67 mL/min/1. 73 m?? 11/17/2023 1:09 PM [facility] Comment: This patient's estimated GFR was [...] Fasting Status No 11/17/2023 1:09 PM EDT [facility] Blood VENOUS BLOOD SPECIMEN / Unknown Venipuncture / Unknown 11/17/2023 12:29 PM EDT 11/17/2023 12:29 PM EDT Luis Rosas MD CHEMISTRY ORDERAB LES [facility] [address] * (ABNORMAL) CBC (with Diff) (11/17/2023 12:29 PM EDT) White Blood Cell 4.86 4.00 - 9.50 x10(3)/mc L 11/17/2023 12:44 PM EDT [facility] Red Blood Cell 3.61(L) 4.00 - 5.21 x10(6)/mc L 11/17/2023 12:44 PM EDT [facility] Hemoglobin 12.8 11.7 - 15.5 g/dL 11/17/2023 12:44 PM EDT [facility] Hematocrit 37.4 35.7 - 45.8 % 11/17/2023 12:44 PM EDT [facility] Mean Cell Volume 103.6(H) 82.6 - 94.4 fL 11/17/2023 12:44 PM EDT [facility] Mean Cell Hemoglobin 35.5(H) 27.1 - 32.0 pg 11/17/2023 12:44 PM EDT [facility] Mean Cell Hemoglobin Concentration 34.2 31.7 - 35.0 g/dL 11/17/2023 12:44 PM [facility] Platelet 298 145 - 357 x10(3)/mc L 11/17/2023 12:44 PM [facility] Mean Platelet Volume 10.5 7.6 - 12.9 fL 11/17/2023 12:44 PM [facility] RDW Standard Deviation 49.1(H) 37.0 - 46.0 fL 11/17/2023 12:44 PM [facility] RDW coefficient of variation 12.9 11.5 - 14.1 % 11/17/2023 12:44 PM [facility] NRBC% auto 0.0 % 11/17/2023 12:44 PM [facility] NRBC Absolute 0.00 0.00 - 0.00 x10(3)/mc L 11/17/2023 12:44 PM [facility] Neutrophil % 42.4 % 11/17/2023 12:44 PM [facility] Neutrophil Absolute (ANC) - Automated 2.06 1.70 - 6.10 x10(3)/mc L 11/17/2023 12:44 PM [facility] Lymph % 42.4 % 11/17/2023 12:44 PM [facility] Lymph Absolute 2.06 0.90 - 3.20 x10(3)/mc L 11/17/2023 12:44 PM [facility] Monocyte % 11.9 % 11/17/2023 12:44 PM [facility] Monocyte Absolute 0.58 0.30 - 0.90 x10(3)/mc L 11/17/2023 12:44 PM [facility] Eos % 1.9 % 11/17/2023 12:44 PM [facility] Eos Absolute 0.09 0.00 - 0.40 x10(3)/mc L 11/17/2023 12:44 PM [facility] Basophil % 1.2 % 11/17/2023 12:44 PM EDT [facility] Baso Absolute 0.06 0.00 - 0.10 x10(3)/mc L 11/17/2023 12:44 PM EDT [facility] Immature Gran % 0.2 % 12:44 PM EDT [facility] Immature Gran Absolute 0.01 0.00 - 0.04 x10(3)/mc L 11/17/2023 12:44 PM EDT [facility] Blood VENOUS BLOOD SPECIMEN / Unknown Venipuncture / Unknown 11/17/2023 12:29 PM EDT 11/17/2023 12:29 PM EDT Luis Rosas MD HEMATOLOGY ORDERA BLES [facility] [place] [address] * Request for 2nd read MR Abdomen (11/17/2023 9:59 AM EDT) WORKSTATION ID [id number] RAD Anatomical Region Laterality Modality SO Impressions [...] who have questions please contact the health career center director that requested your imaging first. ? Electronically signed by: Jerson Lemon MD, [facility] ([phone]), at 11/17/2023 11:16 AM Narrative 11/17/2023 11:16 [...] patients who have questions please contactthe health career center director that requested your imaging first. Electronically signed by: Jerson Lemon MD, [facility]([phone]), at 11/17/2023 11:16 AM Luis Rosas MD IMG OUTSIDE INTER PRETATION ORDERABLES documented in this encounter Visit Diagnoses Diagnosis Ampullary carcinoma Malignant neoplasm of ampulla of Vater Ampullary carcinoma Malignant neoplasm of ampulla of Vater documented in this encounter Care Teams Check Airman Relationship Specialty Start Date End Date Betzaida Avila MD [address] [place] [address] PCP - General Family Medicine 11/30/21 documented as of this encounter
--- OUTSIDE RECORDS SUMMARY | 2023-12-15 01:33 | XMS_ITS | Encounter Summary ---
[place] [address] Care Team Providers Care Fleet Sales Associate Name Role Phone Betzaida Avila MD Primary Care Provider +1 [phone] Reason for Referral * Diagnostic Test (Routine) - Closed Specialty Diagnoses / Procedures Referred By Contac t Referred To Contact Radiology Diagnoses Ampullary carcinoma Procedures NM PET CT Skull Base to Mid-thigh Luis Rosas MD [facility] [place] [address] [place] [address] Referral ID Status Reason Start Date Expiration Date V isits Requested Visits Authorized [id number] Closed Specialty Service Requested 11/28/2023 05/27/2025 1 1 Reason for Visit * Diagnostic Test (Routine) - Closed Specialty Diagnoses / Procedures Referred By Contac t Referred To Contact Radiology Diagnoses Ampullary carcinoma Procedures NM PET CT Skull Base to Mid-thigh Luis Rosas MD [facility] [place] [place] [address] [place] [address] Referral ID Status Reason Start Date Expiration Date V isits Requested Visits Authorized [id number] Closed Specialty Service Requested 11/28/2023 05/27/2025 1 1 Encounter Details Date Type Department Care Team (Latest Contact Info) Description 12/08/2023 12:17 PM EDT - 12/08/2023 12:55 PM EDT Hospital Encounter Nuclear Medicine at [facility] [place] [address] Luis Rosas MD [facility] [place] [address] Ampullary carcinoma Discharge Disposition: Home Social History Tobacco Use [...] 9:00 AM EDT Infusion Hematology Oncology at [address] [phone] 12/26/2023 3:45 PM EDT Office Visit Dermatology at [address] [phone] Francesco Chen MD [address] [place] [address] RD, [place] [address] 12/29/2023 11:30 AM EDT Office Visit Hematology/Oncology at [address] [phone] Yousif Garcia MD [facility] [place] [address] Julianna Cartwright, ACCOUNTING PROFESSIONAL [address] [place] [address] DR HEMATOLOGY [place] [address] 12/29/2023 12:00 PM EDT Infusion Hematology Oncology at [address] [phone] documented as of this encounter Procedures Procedure Name Priority Date/Time Associated Diagnosis Comments NM PET CT SKULL BASE TO MID-THIGH ([facility]) Routine 12/08/2023 1:22 PM EDT Ampullary carcinoma documented in this encounter Results * NM PET CT Skull Base to Mid-thigh (12/08/2023 1:22 PM EDT) WORKSTATION ID [id number] DH RAD Anatomical Region Laterality Modality Positron [...] who have questions please contact the health daycare provider that requested your imaging first. ? 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 ??Is this oligometastatic disease?. Initial staging exam. 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 Small hiatal hernia. Left ovarian 4.8 cm cystic lesion, present on CT of 10/31/2023 and out of the [id number] on MRI of 11/01/2023. SKELETON/EXTREMITIES: Normal activity [...] of Vater TECHNIQUE: Following IV injection of 93-ktcwdc-6-deoxyglucose (FDG) astandard uptake of approximately 60 minutes, [...] precaval and aortocaval lymph nodes (images 138-175)with commercial representative aortocaval node measuring 2.6 cm (image 147). Small hiatal hernia. Left ovarian 4.8 cm cystic lesion, present on CT of 10/31/2023 and out ofthe dvmkl-zj-gebh on MRI of 11/01/2023. SKELETON/EXTREMITIES: Normal activity [...] patients who have questions please contactthe health daycare provider that requested your imaging first. 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 documented in this encounter Administered Medications Inactive Administered Medications - up to 3 most recent administrations Medication Order MAR Action Action Date Dose Rate Site fludeoxyglucose (F-18) FDG injection 0-20 mCi 0-20 mCi, Intravenous, ONCE PRN, 1 dose, Starting on Mon12/08/23 at 1218, Until Mon12/08/23 at 1204, Per Protocol, Radiology Contrast, Routine Given 12/08/2023 12:04 PM EDT 12.7 mCi documented in this encounter Care Teams Fleet Sales Associate Relationship Specialty Start Date End Date Betzaida Avila MD [address] [place] [address] PCP - General Family Medicine 11/30/21 documented as of this encounter
--- OUTSIDE RECORDS SUMMARY | 2023-12-15 01:33 | XMS_ITS | Encounter Summary ---
Author Organization [facility] [place] [address] Care Team Providers Care Petroleum Geologist Name Role Phone Betzaida Avila MD Primary Care Provider [phone] [phone] Reason for Visit * Reason Comments Follow-up Encounter Details Date Type Department Care Team (Latest Contact Info) Description 12/12/2023 10:00 AM EDT Office Visit [place] [address] Fadi Willson MD [facility] [place] [address] Metastatic adenocarcinoma; Primary adenocarcinoma of ampulla of Vater Social [...] Sign Reading Time Taken Comments Blood Pressure 140/85 12/12/2023 9:57 AM EDT Pulse 73 12/12/2023 9:57 AM EDT Temperature 36.3 ??C (97.3 ??F) 12/12/2023 9:57 AM ED T Respiratory Rate 16 12/12/2023 9:57 AM EDT Oxygen Saturation 100% 12/12/2023 9:57 AM EDT Inhaled Oxygen Concentration - - Weight 83.5 kg (184 lb 1.6 oz) 12/12/2023 9:57 A M EDT Height 167.6 cm (5' 5.98) 12/12/2023 9:57 AM ED T Body Mass Index 29.73 12/12/2023 9:57 AM EDT documented in this encounter Progress Notes * Fadi Willson MD - 12/12/2023 10:00 AM EDT Images from the original note [...] dizziness persisted and she she presented to [facility] on 11/01/23. There labs were notable for [...] but did note a left supraclavicular node. ( 11/28/23): I had Prerna Perez see my colleague Dr. Garcia on 11/24/23, for an US guided biopsy of the supraclavicular node node, it has returned as Compatible with metastatic adenocarcinoma, the tumor morphology is similar to patient's prior surgical biopsy of ampullary mass We discuss neck steps in her care. We discussed that surgery does not have a role at this time. Rather she needs aMediport and to begin systemic chemotherapy. Also a PET scan may be helpful in finding additional disease. Prerna asked if surgery could be performed in the future if her disease is only located in the ampulla and the lymph node. We discussed that this is not the standard of care however if she had o ligometastatic disease after completing chemotherapy then we could represent her tumor board to discuss the role of an operation at that point. However I again reiterated that the next steps for her are systemic chemotherapy. Interval: Prerna had a PET scan on Monday. We discussed her care at [facility] earlier this morning. IMPRESSION 1. FDG avid ampullary malignancy. 2. Aortocaval and precaval raul metastases. 3. Biopsy-proven left supraclavicular raul metastasis. 4. Multiple small FDG avid bilateral level 1B and level 2 lymph nodes which are favored benign reactive nodes. Additional small raul metastases cannot be excluded. Attention on follow-up recommended 5. Left ovarian 4.8 cm cystic lesion. Based on patient age and lesion size, consider further characterization with transvaginal ultrasound. Assessment and Plan: Prerna Perez is a 73 y.o. 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 Her work-up has revealed metastatic disease. Prerna wants to know if surgery will ever be possible, and we again discussed that this is not the standard of care however if she had oligometastatic disease after completing chemotherapy then we could re-present her tumor board to discuss the role of an operation at that point. At this point her disease outside of the operative field includes the supravalvular left node as well as aortocaval nodes. She inquired about having the node in her neck resected at this time, which we would not do, again with the goal of starting systemic treatmentASAP. Also that node can be monitored with repeat PET to assess response. Prerna is set to meet Dr. Garcia later today. I have discussed the plan with him. I will be happy to see her back in the future should we get to a point where surgery makes sense. Please excuse any typographical and/or grammatical errors, dragon dictation was used to complete this note. Fadi Willson MD, MS Surgical Oncology 40 minutes were spent on date of visit, including 30 minutes of direct patient counseling. The remainder of the time was spent to complete documentation and coordinate her care. documented in this encounter Plan of Treatment Upcoming Encounters Date Type Department Care Team (Late st Contact Info) Description 12/15/2023 9:00 AM EDT Infusion Hematology Oncology at [address] [phone] 12/26/2023 3:45 PM EDT Office Visit Dermatology at [facility] [address] [facility] [place] [address] Francesco Chen MD [address], [place] [address] 12/29/2023 11:30 AM EDT Office Visit Hematology/Oncology at [address] [phone] Yousif Garcia MD [facility] [address] Julianna Cartwright, [address] HEMATOLOGY AND ONCOLOGY [place], [place] [address] 12/29/2023 12:00 PM EDT Infusion Hematology Oncology at [address] [phone] documented as of this encounter Visit Diagnoses Diagnosis Metastatic adenocarcinoma Other malignant neoplasm without specification of site Primary adenocarcinoma of ampulla of Vater documented in this encounter Care Teams Petroleum Geologist Relationship Specialty Start Date End Date Betzaida Avila MD [address] [facility] [place] [address] PCP - General Family Medicine 11/30/21 documented as of this encounter
--- OUTSIDE RECORDS SUMMARY | 2023-12-15 01:33 | XMS_ITS | Encounter Summary ---
Author Organization [facility] Address [facility] [place] [address] Care Team Providers Care Gasket Notcher Name Role Phone Betzaida Avila MD Primary Care Provider [phone] [phone] Reason for Visit * Consultation (Urgent) - Authorized Specialty Diagnoses / Procedures Referred By Contyelena t Referred To Contact Hematology and Oncology Diagnoses Primary adenocarcinoma of ampulla of Vater Fadi Willson MD [facility] [place] [address] [facility] [place] [address] Referral ID Status Reason Start Date Expiration Date Visits Requested Visits Authorized [id number] Authorized Continuity of Care 11/22/2023 11/21/2024 1 1 Encounter Details Date Type Department Care Team (Late st Contact Info) Description 11/29/2023 9:00 AM EDT Telephone Hematology [place] [address] [facility] [place] [address] Social History Tobacco Use Types Packs/Day Years [...] encounter Miscellaneous Notes * Telephone Encounter - Мария Murphy RD - 11/29/2023 9:04 AM EDT Images from the original note were not included. News yesterday was devastating to her. Came down with COVID yesterday/ Nutrition: all started middle of Oct when thought she had a UTI/ additional tests Always had wine for dinner/ three glasses of wine with dinner more recently. Has not had wine with dinner and apps cheese. Dropped 10 pounds since this time. Usual weight: 182 pounds/ 5'6 Eats right and exercises No changes in eating otherwise Prerna is 73 year old with newly diagnosed Ampullary CA / new metastatic disease noted as of yesterday. I was referred to Prerna by Dr Willson for nutrition consult for pre op visit/ prior to Whipple resection. Prerna just spoke with Dr Willson who relayed that chemotherapy is recommended and surgery is not currently an option for her. She was just diagnosed with COVID and is on paxlovid. She reports change in eating habits - stopped drinking 3 glasses of wine each night with appetizers(followed by large salad in the evening) and feels this has contributed to her weight change of about 10 pounds. Tend to buy organic products. Eats well: big salad/tomatoes/peppers/etc, meat and vegetables (makesher own cran sauce and apple sauce). Breakfast is hearty grain bread. I eat well. Used to run, ski, bike - still gets out and tries to walk / 3 miles 5 times a week but odd things have happened all summer - reduced walking to 1.5 miles a day more recently. Not eating that much, lower eating past few days with COVID but beginning to feel better. Lives by herself / [address] [place] / one has been able to attend appts with her A/P: I will refer Prerna to Alyson Jacobs RD at [facility], Prerna is seeing Dr Garcia on 12/12/23 in [facility] for initial consult . Мария Murphy MS,RDN,CNSC,AUTOMATIC OUTSOLE CUTTER,LD Board Certified Specialist in Oncology [facility] documented in this encounter Plan of Treatment Upcoming Encounters Date Type Department Care Team (Late st Contact Info) Description 12/15/2023 9:00 AM EDT Infusion Hematology Oncology at [address] [phone] 12/26/2023 3:45 PM EDT Office Visit Dermatology at [address] [place] [address] Francesco Chen MD [address] [place] [address], K[address]O [place] [address] 12/29/2023 11:30 AM EDT Office Visit Hematology/Oncology at [address] [phone] Yousif Garcia MD [facility] [place] [address] Julianna Cartwright [address] HEMATOLOGY AND ONCOLOGY [place], [place] [address] 12/29/2023 12:00 PM EDT Infusion Hematology Oncology at [address] [phone] documented as of this encounter Visit Diagnoses Not on filedocumented in this encounter Care Teams Gasket Notcher Relationship Specialty Start Date End Date Betzaida Avila MD [address] [place] [address] PCP - General Family Medicine 11/30/21 documented as of this encounter
--- OUTSIDE RECORDS SUMMARY | 2023-12-15 01:33 | XMS_ITS | Encounter Summary ---
Author Organization [facility] [place] [address] Care Team Providers Care Marketing Technology Specialist Name Role Phone Betzaida Avila MD Primary Care Provider [phone] Reason for Visit * Treatment/Therapy Plan Authorization (Routine) - Authorized Specialty Diagnoses / Procedures Referred By Elisha fishman Referred To Contact Diagnoses Primary adenocarcinoma of ampulla of Vater Yousif Garcia MD [facility] [place] [address] Stj Hem Onc Infusion [address] [place] [phone] Referral ID Status Reason Start Date Expiration Date V isits Requested Visits Authorized [id number] Authorized 12/12/2023 12/11/2024 99 99 Encounter Details Date Type Department Care Team (Late Contact Info) Description 12/15/2023 9:00 AM EDT Infusion Hematology Oncology at [address] [phone] Social History Tobacco Use Types Packs/Day Years [...] Department Care Team (Late Contact Info) Description 12/26/2023 3:45 PM EDT Office Visit Dermatology at [place] [address] [facility] [place] [address] Francesco Chen MD [address], [place] [address] 12/29/2023 11:30 AM EDT Office Visit Hematology/Oncology at [address] [phone] Yousif Garcia MD [facility] [place] [address] Julianna Cartwright [address] HEMATOLOGY AND ONCOLOGY [place], [place] [phone] 12/29/2023 12:00 PM EDT Infusion Hematology Oncology at [address] [phone] documented as of this encounter Visit Diagnoses Not on filedocumented in this encounter Care Teams Marketing Technology Specialist Relationship Specialty Start Date End Date Betzaida Avila MD [address] [place] [address] PCP - General Family Medicine 11/30/21 documented as of this encounter
--- OUTSIDE RECORDS SUMMARY | 2023-12-15 01:33 | XMS_ITS | Encounter Summary ---
[place] [address] Care Team Providers Care Breaker Operator Name Role Phone Betzaida Avila MD Primary Care Provider [phone] [phone] Reason for Visit * Reason Onset Date Comments Medication Refill 12/13/2023 Encounter Details Date Type Department Care Team (Late st Contact Info) Description 12/13/2023 Refill [place]ematology [place] [address] Chery Stahl, RN Social History Tobacco Use Types Packs/Day Years [...] encounter Miscellaneous Notes * Telephone Encounter - Chery Stahl, RN - 12/13/2023 10:54 AM EDT Message received from clinical board of education secretary: [phone]-Prerna called to ask do I need prescription for numbing cream for my port? For when I get my chemo Call placed to patient advised that we can prescribe her Emla cream for her mediport site if she would like it but is not mandatory. Is more for patient comfort. Patient reports that she would like to try having it accessed without the cream this week but if she finds it's painful she will ask for a script to be sent in. Pt verbalized understanding and agreement and knows to call clinic with any concerns and/or questions. documented in this encounter Plan of Treatment Upcoming Encounters Date Type Department Care Team (Late st Contact Info) Description 12/15/2023 9:00 AM EDT Infusion Hematology Oncology at [address] [phone] 12/26/2023 3:45 PM EDT Office Visit Dermatology at [address] [place] [address] Francesco Chen MD [address] [place] [address] RD, [place] [address] 12/29/2023 11:30 AM EDT Office Visit Hematology/Oncology at [address] [phone] Yousif Garcia MD [facility] [place] [address] Julianna Cartwright, [address] HEMATOLOGY AND ONCOLOGY [place], [place] [phone] 12/29/2023 12:00 PM EDT Infusion Hematology Oncology at [address] [phone] documented as of this encounter Visit Diagnoses Not on filedocumented in this encounter Care Teams Breaker Operator Relationship Specialty Start Date End Date Betzaida Avila MD [address] [place] [address] PCP - General Family Medicine 11/30/21 documented as of this encounter
--- OUTSIDE RECORDS SUMMARY | 2023-12-15 01:33 | XMS_ITS | Encounter Summary ---
Author Organization [facility] Address [facility] [place] [address] Care Team Providers Care Assignment Officer Name Role Phone Betzaida Avila MD Primary Care Provider [phone] Encounter Details Date Type Department Care Team (Latest Contact Info) Description 11/17/2023 10:00 AM EDT Ancillary Procedure Radiology Library at [facility] [place] [address] Luis Rosas MD [facility] [place] [address] Ampullary carcinoma Social History Tobacco Use Types [...] 9:00 AM EDT Infusion Hematology Oncology at [address] [phone] 12/26/2023 3:45 PM EDT Office Visit Dermatology at [place] [address] [facility] [place] [address] Francesco Chen MD [address] [facility], [place] [address] 12/29/2023 11:30 AM EDT Office Visit Hematology/Oncology at [address] [phone] Yousif Garcia MD [facility] [address] [place] [address] Julianna Cartwright APRN [address] [place] [address] H[place]ATOLOGY [place] [address] 12/29/2023 12:00 PM EDT Infusion Hematology Oncology at [address] [phone] documented as of this encounter Procedures Procedure Name Priority Date/Time Associated Diagnosis Comments REQUEST FOR 2ND READ MR ABDOMEN Routine 11/17/2023 9:59 AM EDT Ampullary carcinoma documented in this encounter Results * Request for 2nd read MR Abdomen (11/17/2023 9:59 AM EDT) Audio Network WORKSTATION ID [id number] [facility] Anatomical Region Laterality Modality SO Impressions 11/17/2023 [...] who have questions please contact the health professional healthcare representative that requested your imaging first. ? Narrative 11/17/2023 11:16 AM EDT EXAMINATION: REQUEST [...] patients who have questions please contactthe health professional healthcare representative that requested your imaging first. 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
--- OUTSIDE RECORDS SUMMARY | 2023-12-15 01:33 | XMS_ITS | Encounter Summary ---
Author Organization [facility] [place] [address] Care Team Providers Care Emissions Testing And Repair Technician Name Role Phone Betzaida Avila MD Primary Care Provider [phone] Encounter Details Date Type Department Care Team (Latest Contact Info) Description 11/02/2023 11:56 AM EDT - 11/02/2023 3:44 PM EDT Hospital Encounter [place] [phone] Ferdinand Lee MD [facility] [place] [address] Discharge Disposition: Home Social History Tobacco Use [...] Sign Reading Time Taken Comments Blood Pressure 146/70 11/02/2023 3:30 PM EDT Pulse 68 11/02/2023 12:09 PM EDT Temperature 36.9 ??C (98.5 ??F) 11/02/2023 12:09 PM E DT Respiratory Rate 16 11/02/2023 3:30 PM EDT Oxygen Saturation 98% 11/02/2023 3:30 PM EDT Inhaled Oxygen Concentration - - [...] the day after the procedure, use an lgmv-jjm-wcamviu spray to numb your throat. Sucking on [...] occurs, please contact your Doctor. Please call [phone] before 8pm Mon-Fri with problems, questions or concerns. If you call after 8pm or on weekends, call the Hospital at [phone] and ask to speak to the Movie Operator master control engineer and the print line operator will contact that person for you. When should you call for help? Call [phone] anytime you think you may need emergency [...] problems, like Where can you learn more? [facility] View your After Visit Summary and more online at [email or web address] If you would like to provide feedback about your hospital experience, please call the Office of Patient and Family Relations at . If you have received this After Visit Summary in error, please immediately return it in person to the department, or notify the [facility] Privacy Office by calling toll free at between the hours of 8AM and 5PM to arrange for our retrieval of the documents at no cost to you. Content Version: 12.2 ?? [id number] [employer]. Care instructions adapted under license by [facility]. If you have questions about a medical condition or this instruction, always ask your healthcare professional. [employer] disclaims any warranty or liability for your [...] Lee MD - 11/02/2023 1:38 PM EDT [facility] Operative Note Patient Name: Prerna Perez : [id number] MR#: [id number] Case Date: 11/02/2023 Surgeon: Surgeons and Role: [...] 9:00 AM EDT Infusion Hematology Oncology at [address] [phone] 12/26/2023 3:45 PM EDT Office Visit Dermatology at [place] [address] [place] [phone] Francesco Chen MD [address], [place] [address] 12/29/2023 11:30 AM EDT Office Visit Hematology/Oncology at [address] [phone] Yousif Garcia MD [facility] [place] [address] Julianna Cartwright APRN [address] [place] [address] DR HEMATOLOGY AND ONCOLOGY [place], [place] [id number] 12/29/2023 12:00 PM EDT Infusion Hematology Oncology at [address] [phone] Pending Results Name Type Priority Associated Diagnoses [...] 2:16 PM EDT Upper Gi Endoscopy, Biopsy ([id number]) 11/02/2023 1:37 PM EDT Jaundice, dilated bile duct bacl and forth Njx Cholangio Prq W/Img Gid Rs&I New Access ([id number]) 11/02/2023 1:37 PM EDT Jaundice, dilated bile duct bacl and forth Ercp, Sphincterotomy ([id number]) 11/02/2023 1:37 PM EDT Jaundice, dilated bile duct bacl and forth Ercp Stent Placement Biliary Or Pancreatic Duct([id number]) 11/02/2023 1:37 PM EDT Jaundice, dilated bile duct bacl and forth Fine Needle Aspiration Bx W/Us Gdn 1St Lesion ([id number]) 11/02/2023 1:37 PM EDT Jaundice, dilated bile duct bacl and forth Ercp, Diagnostic ([id number]) 11/02/2023 1:37 PM EDT Jaundice, dilated bile duct bacl and forth Endoscopic Us Exam, Esoph ([id number]) 11/02/2023 1:37 PM EDT Jaundice, dilated bile duct bacl and forth documented in this encounter Results * XR ERCP (11/02/2023 3:02 PM EDT) Narrative [facility] - 11/02/2023 3:02 PM EDT See PACS for result report. Ferdinand Lee MD [facility] FILM LIBRARY ORD ERABLES [place], [place] * Surgical Pathology (11/02/2023 2:34 PM EDT) Case Report Surgical Pathology Report ? Case: [id number] ? Authorizing Provider: ??Ferdinand Lee MD ? Collected: ? 11/02/2023 1434 ? Ordering Location: ? Gastroenterology at [facility] ?? Received: ?11/02/2023 1730 ? Pathologist: ? Jus Lizama MD ? Specimen: ?Ampulla ? 11/28/2023 2:04 PM EDT [facility] Final Diagnosis A. Ampulla, [...] syndrome screening. Cr-px 11/28/2023 2:04 PM EDT [facility] Addendum This addendum is to report the adenocarcinoma subtype per clinician request. Immunostains for CDX2, CK20, MUC1, and MUC2 are positive. The morphology and immunoprofile are consistent with intestinal type. 11/28/2023 2:04 PM EDT [facility] Addendum electronically signed by Richard Christianson MD on 11/28/2023 at 2:04 PM Additional Studies Whole slide scan: A1 11/28/2023 2:04 PM EDT [facility] Disclaimer(s) Immunohistochemical assay was performed on paraffin-embedded tissue sections fixed in 10% neutral buffered formalin for 6-72 hours using the polymer system technique with appropriate controls. The assay was performed according to the geotechnical engineering technician's instructions using anti-MLH-1, anti-MSH-2, anti-MSH-6, and anti-PMS-2 [...] other diagnostic tests. 11/28/2023 2:04 PM EDT [facility] Clinical Information A. Ampulla, Mass Ampullary mass 11/28/2023 2:04 PM EDT [facility] Gross Description A. Ampulla, . Labeled/Fixative: Ampulla, formalin. Quantity/Size: Four, ranging from 0.2 to 0.4 cm. Tissue Description: Soft, vidal-pink and red tissues. Sections/Processing: Submitted in toto in 1 cassette labeled A1. 11/28/2023 2:04 PM EDT [facility] Result Note Routine 11/28/2023 2:04 PM EDT [facility] Tissue SPECIMEN FROM AMPULLA OF VATER / Unknown 11/02/2023 2:34 PM EDT 11/02/2023 5:30 PM EDT Comment:Ampullary mass Ferdinand Lee MD PATHOLOGY/CYTOLOGY O RDERANEYMAR [facility] [place] [address] * (ABNORMAL) Cytology FNA (11/02/2023 2:16 PM EDT) Case Report Medical Cytology Report ? Case: [id number] ? Authorizing Provider: ??Ferdinand Lee MD ? Collected: ? 11/02/2023 1416 ? Ordering Location: ? Gastroenterology at [facility] ?? Received: ?11/02/2023 1730 ? Pathologist: ? Kan Cunningham MD ? Specimen: ?Lymph Node, carly ampullary LNs ? 11/06/2023 5:27 PM [facility] Specimen Source Lymph Node: carly-ampullary (EUS-guided FNA) 11/06/2023 5:27 PM [facility] Final Diagnosis Positive for malignancy 11/06/2023 5:27 PM [facility] Diagnosis Discussion Compatible with metastatic adenocarcinoma. See also the concurrent surgical biopsy of the ampullary mass. (Cell block was examined.) 11/06/2023 5:27 PM [facility] Specimen Adequacy Satisfactory for evaluation. 11/06/2023 5:27 PM T [facility] Clinical Information 73 y/o female ampullary mass. 11/06/2023 5:27 PM EDT [facility] Gross Description Received in formalin, approximately 20 mL total volume of cloudy, pink fluid with clots. Total preparation: Cell Block: 1. 11/06/2023 5:27 PM [facility] Result Note THIS RESULT REQUIRES PHYSICIAN/SUPRIYA FOLLOW UP(A) 11/06/2023 5:27 PM EDT [facility] Fine Needle Aspirate LYMPH NODE SPECIMEN / Unknown Non Blood Collection / Unknown 11/02/2023 2:16 PM EDT 11/02/2023 5:30 PM EDT Ferdinand Lee MD PATHOLOGY/CYTOLOGY O OCTAVIANO [facility] [place] [address] documented in this encounter Visit Diagnoses Not [...] CRNA) documented in this encounter Care Teams Emissions Testing And Repair Technician Relationship Specialty Start Date End Date Betzaida Avila MD [address] [address] PCP - General Family Medicine 11/30/21 documented as of this encounter
--- OUTSIDE RECORDS SUMMARY | 2023-12-15 01:33 | XMS_ITS | Encounter Summary ---
[place] [address] Care Team Providers Care Leadership Program Associate Name Role Phone Betzaida Avila MD Primary Care Provider [phone] Reason for Referral * Diagnostic Test (Routine) - Closed Specialty Diagnoses / Procedures Referred By Contac t Referred To Contact Radiology Diagnoses Ampullary carcinoma Procedures IR Mediport Placement Luis Rosas MD [facility] [place] [address] [facility] [place] [address] Referral ID Status Reason Start Date Expiration Date V isits Requested Visits Authorized [id number] Closed Specialty Service Requested 11/28/2023 05/27/2025 1 1 Reason for Visit * Diagnostic Test (Routine) - Closed Specialty Diagnoses / Procedures Referred By Contac t Referred To Contact Radiology Diagnoses Ampullary carcinoma Procedures IR Mediport Placement Luis Rosas MD [facility] [place] [address] [facility] [place] [address] Referral ID Status Reason Start Date Expiration Date V isits Requested Visits Authorized [id number] Closed Specialty Service Requested 11/28/2023 05/27/2025 1 1 Encounter Details Date Type Department Care Team (Latest Contact Info) Description 12/08/2023 9:28 AM EDT - 12/08/2023 12:16 PM EDT Hospital Encounter Radiology at [facility] [place] [address] Luis Rosas MD [facility] [place] [address] Ampullary carcinoma Discharge Disposition: Home Social History [...] Sign Reading Time Taken Comments Blood Pressure 103/68 12/08/2023 11:15 AM EDT Pulse 84 12/08/2023 11:15 AM EDT Temperature 36.6 ??C (97.9 ??F) 12/08/2023 9:50 AM ED T Respiratory Rate 11 12/08/2023 11:15 AM EDT Oxygen Saturation 98% 12/08/2023 11:15 AM EDT Inhaled Oxygen Concentration - - Weight - - Height - - Body Mass Index - - documented in this encounter Discharge Instructions * Discharge Instructions* Bradly Bernstein RN - 12/08/2023 10:05 AM EDT Department of Vascular and Interventional Radiology Discharge Instructions for your Chest Port You have received a ???Power Port?? , which provides access for infusions and blood draws. What makes this a ???Power Port?? is the unique ability to ???power inject?? contrast (intravenous dye) through the port when getting a CT scan, which produces superior images (pictures). Patients who don???t have these special ports need to have an IV started if they need dye injected for their CT scan. Your port is printed with the letters ???CT?? which can be detected by x- ray to identify it as a ???Power Port?? . You will be provided with an ID card stating the driller's offsider and type of port you have. Please carry this with you in a safe place. Bandage: There is a sterile dressing over the port site consisting of small gauze with a clear dressing (Tegaderm or OU0000 ). This dressing should be left in place for 48 hours. If the clear dressing becomes loose you should place tape over the edges to secure it in place. Note: If you have steri-strips beneath your dressing, simply allow them to fall off. Do not peel them off. There may be [place] (skin glue) also, allow this to flake off. Pain: Apply ice bag to site (s) at 30 minute intervals (30 minutes on and 30 minutes off) for 24 hours?? . May use as needed for pain and/or bruising after 24 hours. Bathing: Do not take a shower until 48 hours after your port is placed; after this time you may shower with the dressing in place, then remove it and pat your skin dry. After 48 hours, we recommend that you cover the area with THE AQUA GUARD PROVIDED for 1 week while showering, facing away from theshower stream. You may use a bandaid to cover the site after the 48 hours are up if there is any drainage. No tub baths, whirlpools or swimming for one week following port placement. Flushing the mediport: If your port has not been used, it must be flushed every 30 days. What to expect when your port is accessed: 1. You may feel tenderness the first few times it is accessed but generally this subsides over time. Ask your healthcare provider to use a local anesthetic on the site if discomfort is a problem for you. You may ask for a prescription for a topical cream (EMLA) from your clinician; you may apply athome prior to your appointments, to help numb the skin over your port. 2. The clinician should be wearing sterile gloves and a mask during the access procedure. Anyone inthe room with you should also have a mask on. 3. The skin over and 2 inches around the port should be cleaned with a disinfectant 4. Tell the clinician if you would like the skin numbed (lidocaine) before the access needle is placed. 5. Unless you are unable to take heparin (blood thinner), the port should be injected with a heparin solution before deaccess (at end of each treatment or blood draw). When to call your healthcare provider: If you notice bleeding from the puncture site in your neck, or from the port incision on your chest, you should apply firm pressure over the site for 10-15 minutes, keeping the site covered. Call if you are still bleeding after 10-15 minutes. If you develop pain, redness, drainage or swelling at or around the port site, or the puncture sitein the neck If you develop fever (elevation of more than 2 degrees or greater than 101F) and/or shaking chills When to call the Interventional Radiology Department: Please call with any questions or concerns. If it is during regular office hours, please call [phone]. If it is after regular office hours, or on weekends or holidays, please call [phone] and ask to speak to the Lithographic Artist environmental compliance manager for Interventional Radiology. XXX You have received medication during your procedure to help lessen anxiety and keep you comfortable. These medications affect judgement and reaction time. We recommend that you do not drive, operate equipment, sign any important documents, or smoke unattended for 24 hours following your procedure. Because of the sedation, be careful on stairs, as you may be unsteady on your feet. You may resume your regular diet as tolerated. IV site -- slight redness, or tenderness is normal, you can use a warm compress. If tenderness and redness increases or foul drainage occurs, please contact your M. D. Revised 12/27/18 documented in this encounter Medications at Time [...] Weds, Fri). documented as of this encounter Progress Notes * Bradly Bernstein RN - 12/08/2023 10:04 AM EDT ANGIO NURSING DATABASE Name: Prerna Perez Date of : 1950 AGE: 73 y.o. Address: [address] [address] (home) Mobile: Telephone Information: Referring Provider: Luis Rosas REASON FOR VISIT: Order Questions Answers Where will study be performed? [facility] Radiology [120] To be scheduled Next available after expected date Prefered insertion location: No Preference Is the patient on anticoagulant / antiplatelet therapy ? No Reason for exam and clinical history: Need to start chemotherapy. Exam/Procedure requested: Mediport placement Does patient require sedation? None Planned procedure: Mediport implant - single lumen Labs to be performed day of procedure: No labs Sedation: Moderate (Conscious sedation) Prophylactic antibiotic : None Contrast: No contrast Additional medications for procedure: Lidocaine Position: Supine Consent: Pending Medications to discontinue (and days held): None Case Urgency:: G2- Elective Outpatient intervention within 8-14 days Moderate Sedation Per PA [place] No Known Allergies Pertinent PMH: Patient Active Problem List Diagnosis Code Chest pain R07.9 Diverticulosis of both small and large intestine without perforation or abscess without bleeding K57.50 Gout, unspecified M10.9 Osteopenia M85.80 Hypothyroidism 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 Onto table supine. All monitors, O2, safety strap in place.Meds per protocol. Laboratory Results: Lab Results Component Value Date CREATININE 0.90 11/17/2023 Lab Results Component Value Date K 4.1 11/17/2023 Lab Results Component Value Date PLATELET 298 11/17/2023 documented in this encounter H&P Notes * Jenae Bermeo PA - 11/29/2023 11:13 AM EDT Images from the original note were not included. Interventional Radiology Focused Pre-procedure H&P: PCP: Betzaida Avila MD Referring Provider: Luis Rosas Planned procedure: Mediport implant - single lumen Procedure indication: Ampullary cancer, need for long-term durable venous access for systemic chemotherapy IR workflow: Procedure request received through Interventional Radiology eDH order queue. Order Questions Answers Where will study be performed? [facility] Radiology [120] To be scheduled Next available after expected date Prefered insertion location: No Preference Is the patient on anticoagulant / antiplatelet therapy ? No Reason for exam and clinical history: Need to start chemotherapy. Exam/Procedure requested: Mediport placement Does patient require sedation? None History of Present Illness: Per chart review, Prerna Perez is a 73 y.o. 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 First infusion is not yet scheduled. Past medical history is significant for gout, hypothyroidism, diverticulosis. Remainder of patient's medical and surgical history, allergies, medications, and social/family history obtained below as previously outlined in patient's medical record. IR History: None listed Anticoagulation/Antiplatelet: None listed Labs: Lab Results Component Value Date HGB 12.8 11/17/2023 HCT 37.4 11/17/2023 WBC 4.86 11/17/2023 PLATELET 298 11/17/2023 BUN 14 11/17/2023 CREATININE 0.90 11/17/2023 ALBUMIN 4.4 11/17/2023 BILITOT 0.8 11/17/2023 AST 28 11/17/2023 ALT 51 (H) 11/17/2023 ALKPHOS 302 (H) 11/17/2023 Allergies: Patient has no known allergies. Imaging: CT chest 11/17/23 Assessment: 73 y.o. female with ampullary cancer presenting to Interventional Radiology for Mediport implant. Plan Planned procedure: Mediport implant - single lumen Labs to be performed day of procedure: No labs Sedation: Moderate (Conscious sedation) Prophylactic antibiotic : None Contrast: No contrast Additional medications for procedure: Lidocaine Position: Supine Consent: Pending Medications to discontinue (and days held): None Cytopathology presence needed: No Case Urgency:: G2- Elective Outpatient intervention within 8-14 days Medications: Current Outpatient Medications on File Prior to Encounter Medication Sig Dispense Refill cholecalciferol, Vitamin D3, 25 mcg (1,000 unit) Capsule Take 1,000 each by mouth daily. alendronate (Fosamax) 70 mg tablet Take 70 mg by mouth every 7 days. Take in AM with full glass of water, on an empty stomach. Do not lie down for 30 min. allopurinoL (Zyloprim) 100 mg Tablet TAKE 2 TABLETS BY MOUTH ONCE DAILY FOR GOUT PREVENTION famotidine (Pepcid) 40 mg Tablet TAKE 1 TABLET BY MOUTH ONCE DAILY FOR STOMACH ACID CONTROL Euthyrox 137 mcg Tablet TAKE 1 TABLET BY MOUTH ONCE DAILY FOR THYROID multivitamin Capsule Take 1 capsule by mouth three times a week (Mon, Weds, Fri). No current facility-administered medications on file prior to encounter. Past Medical/Surgical history: Patient Active Problem List Diagnosis Code Chest [...] 3.47) performed by Ferdinand Lee MD at [facility] ENDOSCOPY PRO ERCP STENT PLACEMENT BILIARY OR PANCREATIC DUCT 11/02/2023 ERCP, W PLCMNT ENDOSCOPIC STENT BILIARY OR PANCREATIC DUCT (WRVU 8.48) performed by Ferdinand Lee MD at [facility] ENDOSCOPY PRO ERCP, SPHINCTEROTOMY 11/02/2023 ERCP W/SPHINCTEROTOMY/PAPILLOTOMY (WRVU 6.5) performed by Ferdinand Lee MD at [facility] ENDOSCOPY PRO ERCP,DIAGNOSTIC N/A 11/02/2023 ERCP (WRVU 5.85) performed by Ferdinand Lee MD at [facility] ENDOSCOPY PRO FINE NEEDLE ASPIRATION BX W/US GDN 1ST LESION 11/02/2023 FINE NEEDLE ASPIRATION BIOPSY, INC US GUIDANCE; FIRST LESION (WRVU 1.46) performed by Ferdinand Lee MD at [facility] ENDOSCOPY PRO NJX CHOLANGIO PRQ W/IMG GID RS&I NEW ACCESS N/A 11/02/2023 CHOLANGIOGRAM INJECTION PROCEDURE, W IMG GUIDANCE, NEW ACCESS (WRVU 4.25) performed by Ferdinand Lee MD at [facility] ENDOSCOPY PRO UPPER GI ENDOSCOPY, BIOPSY N/A 11/02/2023 EGD WITH BIOPSY (WRVU 2.39) performed by Ferdinand Lee MD at [facility] ENDOSCOPY Social History and Habits: Social History Tobacco Use Smoking status: Former Current packs/day: 1.00 Average packs/day: 1 pack/day for 10.0 years (10.0 ttl pk-yrs) Types: Cigarettes Smokeless tobacco: Never Substance Use Topics Alcohol use: Yes Alcohol/week: 3.0 standard drinks of alcohol Types: 3 Glasses of wine per week Comment: 3 glasses daily Drug use: Never Significant Family History: Family History Problem Relation Age of Onset Diabetes Mother Coronary Artery Disease Mother Glaucoma Mother Dementia Mother Coronary Artery Disease Father Alcohol Use Disorder Sister Breast Cancer Sister Mental Illness Brother Pertinent ROS: as per HPI Physical Exam: Pending (to be performed in IR the day of procedure) ASA: Pending (to be assessed in IR the day of procedure) Mallampati class: Pending (to be assessed in IR the day of procedure) 11/29/2023 Jenae Bermeo PA-C documented in this encounter Plan of Treatment Upcoming Encounters Date Type Department Care Team (Late st Contact Info) Description 12/15/2023 9:00 AM EDT Infusion Hematology Oncology at [address] [phone] 12/26/2023 3:45 PM EDT Office Visit Dermatology at [place] [address] [facility] [place] [address] Francesco Chen MD [address], [place] [address] 12/29/2023 11:30 AM EDT Office Visit Hematology/Oncology at [address] [phone] Yousif Garcia MD [facility] [place] [address] Julianna Cartwright APRN [address] [place] [address] DR HEMATOLOGY AND ONCOLOGY [place], [place] [id number] 12/29/2023 12:00 PM EDT Infusion Hematology Oncology at [address] [phone] documented as of this encounter Procedures Procedure Name Priority Date/Time Associated Diagnosis Comments POC, GLUCOSE Routine 12/08/2023 11:56 AM EDT IR MEDIPORT PLACEMENT Routine 12/08/2023 11:36 AM EDT Ampullary carcinoma documented in this encounter Results * POC, GLUCOSE (12/08/2023 11:56 AM EDT) Glucometer, POC 104 65 - 199 mg/dL 12/08/2023 11:57 AM EDT [facility] Comment:Supplemental ranges: <140 mg/dL before meals <180 mg/dL all other times of the day. Blood CAPILLARY BLOOD / Unknown 12/08/2023 11:56 AM EDT 12/08/2023 11:57 AM EDT Luis Rosas MD POINT OF CARE HERMELINDA T ORDERABLES [facility] [place] [address] * IR Mediport Placement (12/08/2023 11:36 AM EDT) Anatomical Region Laterality Modality X-Ray Angiograph y Narrative 12/08/2023 12:01 PM EDT Interventional Radiology Procedure Note Procedure: Chest port implant Indication: Ampullary carcinoma, durable prison central venous access for chemotherapy Procedure summary: [...] junction. The port may be used immediately. hydropulper operator: Christian Lara PA-C Attending of record: [...] MAR Action Action Date Dose Rate Site lidocaine (Xylocaine) 1% (10 mg/mL) injection 10 mg 10 mg, Subcutaneous, ONCE, 1 dose, On Mon12/08/23 at 1130, For use in Interventional Radiology (IR) only for procedure with direct provider supervision and verbal order., Angio/IR (Intra-Procedure), Routine Given 12/08/2023 11:05 AM EDT 10 mg lidocaine-EPINEPHrine (1% - 1:100,000) injection 20 mL 20 mL, Intradermal, ONCE, 1 dose, On Mon12/08/23 at 1130, For use in Interventional Radiology (IR) only for procedure with direct provider supervision and verbal order. *This order is NOT a Venous Ablation Order / Dose., Angio/IR (Intra-Procedure), Routine Given 12/08/2023 11:06 AM EDT 20 mLs documented in this encounter Care Teams Leadership Program Associate Relationship Specialty Start Date End Date Betzaida Avila MD [address] [place] [address] PCP - General Family Medicine 11/30/21 documented as of this encounter
--- OUTSIDE RECORDS SUMMARY | 2023-12-15 01:33 | XMS_ITS | Encounter Summary ---
Author Organization [facility] [place] [address] Care Team Providers Care Air Bag Builder Name Role Phone Betzaida Avila MD Primary Care Provider [phone] Reason for Visit * Reason Comments Establish Care Encounter Details Date Type Department Care Team (Latest Contact Info) Description 12/12/2023 11:00 AM EDT Office Visit Hemat[place] [address] Yousif Garcia MD [facility] [address] Primary adenocarcinoma of ampulla of Vater; Drug-induced nausea and vomiting Social History Tobacco Use Types Packs/Day Years [...] Mass Index 29.94 12/12/2023 10:45 AM EDT documented in this encounter Progress Notes * Yousif Garcia MD - 12/12/2023 11:00 AM EDT Subjective Patient ID: Prerna Perez is 73 y.o. Problem List: Ampulla of vater adenocarcinoma, stage IV A. Presented to [place] with new onset dizziness and dark urine, found to have abnormal LFTs. CT a/p 10/31/23 ([facility] [place] - IMPRESSION 1. Suspected ampullary lesion with resulting double ductal dilation. 2. Subcentimeter short axis peripancreatic, marc hepatis, portacaval and aortocaval lymphadenopathy. 3. Acute versus chronic cholecystitis. Clinical and serologic correlation suggested. 4. Unexpected findings: 5.2 cm cystic lesion left adnexa. 12 mm hypodense distention endometrial cavity. Nonemergent outpatient sonographic correlation suggested. MRI abd 11/01/23 ([facility] [place] second [place] - IMPRESSION 1. Ampullary mass in the duodenal lumen is 1.7 cm. Associated severe dilatation of the pancreatic and bile ducts. 2. Mild marc hepatis lymphadenopathy. B. Upper EUS 11/02/23 - Impression: - Mild Schatzki ring. - An ulcerated mass was found in the ampulla with upstream ductal dilation of bile duct and pancreatic duct associated with lymphadenopathy-s/p FNA. - Fatty liver. - Gallbladder sludge. Cytology - Lymph Node: carly-ampullary (EUS-guided FNA) Final Diagnosis Positive for malignancy Diagnosis Discussion Compatible with metastatic adenocarcinoma. ERCP 11/02/23 - Impression: - The entire main bile duct was dilated, with an ampullary mass causing an obstruction. - A biliary sphincterotomy was performed. - One plastic stent was placed into the common bile duct. - Biopsies were performed of the ampullary mass. Path - Ampulla, Biopsy: - Adenocarcinoma, poorly differentiated (See Note). Note: Immunostains for MLH1, MSH2, MSH6 and PMS2 reveal intact nuclear staining in tumor cells. Addendum This addendum is to report the adenocarcinoma subtype per clinician request. Immunostains for CDX2,CK20, MUC1, and MUC2 are positive. The morphology and immunoprofile are consistent with intestinal type. NGS - pending C. CT chest 11/17/23 - IMPRESSION 1. Left supraclavicular lymphadenopathy 2. Dilated ascending aorta measuring 4 cm D. 11/24/23 - Left cervical LN biopsy Path - Positive for malignancy Diagnosis Discussion Compatible with metastatic adenocarcinoma D. PET scan 12/08/23 - IMPRESSION 1. FDG avid ampullary malignancy. 2. [...] size, consider further characterization with transvaginal ultrasound. 2. Hypothyroidism 3. Gout 4. Osteopenia 5. S/p left ACL surgery HPI Prerna Perez is seen for evaluation and management of ampullary cancer. The history is summarized above. She had previously seen Dr. Rosas. She would like to have therapy in [facility]. Prerna is by herself in clinic today. Her sister Evelia is on speaker phone. Prerna is feeling pretty well overall. She has a h/o a compression fracture and has back pain off and on. No abdominal pain. Her appetite is ok. She has lost 12-13# over the past few months. She lives alone and is managing well. Her main support is his sisters who live in [place]. She does have a group of friends with whom sheplays bridge but they are older and unable to provide rides. Soc Hx: , lives in [place], [place]. Her in 2014. Tob - Former Etoh - 2-3 glasses of wine with dinner Retired teacher, taught mathematics Fam Hx: Father - Mother - Sibs - Sister with breast cancer Children - None Review of Systems Objective Physical Exam Vitals reviewed. Constitutional: General: She is not in acute distress. HENT: Head: Normocephalic and atraumatic. Mouth/Throat: Pharynx: Oropharynx is clear. No oropharyngeal exudate. Eyes: General: No scleral icterus. Cardiovascular: Rate and Rhythm: Normal rate and regular rhythm. Pulmonary: Effort: Pulmonary effort is normal. No respiratory distress. Breath sounds: No wheezing or rales. Abdominal: General: There is no distension. Palpations: There is no mass. Tenderness: There is no abdominal tenderness. There is no guarding. Lymphadenopathy: Cervical: No cervical adenopathy. Upper Body: Right upper body: No supraclavicular adenopathy. Left upper body: No supraclavicular adenopathy. Skin: General: Skin is warm and dry. Findings: No rash. Neurological: General: No focal deficit present. Mental Status: She is alert. Coordination: Coordination normal. Psychiatric: Mood and Affect: Mood normal. CA 19-9 11/17/23 33.8 PGX - intermediate metabolizer of irinotecan (no dose adjustment recommended by pharmacy). No variants with implications for Fluorouracil therapy Assessment and Plan Prerna Perez is 73 yo, seen for evaluation and management of adenocarcinoma of the ampulla of vater, intestinal type, stage IV; pMMR, NGS pending. She has biopsy proven metastatic disease to a left supraclavicular LN. A PET scan was done on 12/08/23 and shows We talked about the diagnosis, prognosis and treatment options. We discussed her case at [facility] todayand I also discussed things personally with Dr. Willson. The recommended approach is one of chemotherapy first. Depending on the result of the restaging evaluation, surgery for the primary and areas of oligometastatic disease has not been ruled out. In terms of specific therapy, she had discussed Folfox with Dr. Rosas. We reviewed the schedule of therapy and potential side effects, including bu not limited to nausea and vomiting, diarrhea, stomatitis, hand foot syndrome, fatigue, peripheral neuropathy which may be exacerbated by cold exposure but which may be cumulative and permanent even in the absence of cold, fatigue, angina/WA, hypersensitivity reactions and others. She was given an informational handout regarding the Folfox regimen. Given that she lives alone and the uncertainty of how she will tolerate therapy, we agreed that we will start with reduced dose and increase if tolerated. We plan to start therapy on 12/14 . We will check to see if her pump disconnect can be done in [place]. We discussed that she could be treated and followed in [place] and she will think about that. documented in this encounter Plan of Treatment Upcoming Encounters Date Type Department Care Team (Late st Contact Info) Description 12/15/2023 9:00 AM EDT Infusion Hematology Oncology at [address] [phone] 12/26/2023 3:45 PM EDT Office Visit Dermatology at [place] [address] [place] [address] Francesco Chen MD [address], [place] [address] 12/29/2023 11:30 AM EDT Office Visit Hematology/Oncology at [address] [phone] Yousif Garcia MD [facility] [address] Julianna Cartwright [address] HEMATOLOGY AND ONCOLOGY [place], [place] [address] 12/29/2023 12:00 PM EDT Infusion Hematology Oncology at [address] [phone] Scheduled Orders Name Type Priority Associated Diagnoses Orde r Schedule CBC (with Diff) Lab Routine Primary adenocarcinoma of ampulla of Vater Every 2 Weeks for 12 Occurrences starting 12/12/2023 until 12/11/2024 Comprehensive metabolic panel Non-fasting Lab Routine Primary adenocarcinoma of ampulla of Vater Every 2 Weeks for 12 Occurrences starting 12/12/2023 until 12/11/2024 Carbohydrate Antigen 19-9 Lab Routine Primary adenocarcinoma of ampulla of Vater Every 2 Weeks for 12 Occurrences starting 12/12/2023 until 12/11/2024 documented as of this encounter Visit Diagnoses Diagnosis Primary adenocarcinoma of ampulla of Vater Drug-induced nausea and vomiting Nausea with vomiting documented in this encounter Care Teams Air Bag Builder Relationship Specialty Start Date End Date Betzaida Avila MD [address] [place] [address] PCP - General Family Medicine 11/30/21 documented as of this encounter
--- OUTSIDE RECORDS SUMMARY | 2023-12-15 01:33 | XMS_ITS | Encounter Summary ---
[place] [address] Care Team Providers Care Telephone Station Repairer Name Role Phone Betzaida Avila MD Primary Care Provider [phone] Encounter Details Date Type Department Care Team (Late st Contact Info) Description 12/06/2023 Notes Only Hematology [place] [phone] Alee Connelly, [facility] Social History Tobacco Use Types Packs/Day Years [...] as of this encounter Progress Notes * Alee Connelly RPH - 12/06/2023 1:35 PM EDT Clinical Oncology Pharmacist Note Oncology PGx Results PATIENT ID: Prerna Perez is a 73 y.o. female with ampullary adenocarcinoma . The patient's current treatment plan has not been finalized yet. Pharmacist interpretation of Oncology PGx results isas follows: Interpretation: Gene Based on most recent FDA, CPIC (Clinical Pharmacogenetics Implementation Consortium), and DPWG([place] pharmacogenetics working group) guidelines: DPYD Normal metabolizer - No action necessary. NUDT15 Normal metabolizer - No action necessary. TPMT Normal metabolizer - No action necessary. UGT1A1 Intermediate metabolizer - no recommended action UGT1A1*1/*28 impact: The UGT1A1*1/*28 is more common in Western populations than the wild-type (*1/*1), and was stronglyrepresented in early irinotecan phase I studies. No dosing action is recommended. Based on the above results, no drugs have been added to the patient's chart as an allergy. Please reference dosing guidance for initiation of any future agents that may be affected by the documented gene. The patient was evaluated by a clinical pharmacist for drug-gene interactions impacted by DPYD, NUDT15, TPMT, and UGT1A1, which is limited to the following medications: 5-Fluorouracil, Capecitabine, Tegafur, Mercaptopurine, Thioguanine, Azathioprine, Belinostat, Irinotecan, and Sacituzumab govitecan-hziy (brand name Trodelvy). Please do not hesitate to reach out with any questions. Alee Connelly RPH December 06, 2023 documented in this encounter Plan of Treatment Upcoming Encounters Date Type Department Care Team (Late st Contact Info) Description 12/15/2023 9:00 AM EDT Infusion Hematology Oncology at [address] [phone] 12/26/2023 3:45 PM EDT Office Visit Dermatology at [address] [place] [phone] Francesco Chen MD [address] [place] [address], [place] [address] 12/29/2023 11:30 AM EDT Office Visit Hematology/Oncology at [address] [phone] Yousif Garcia MD [facility] [place] [address] Julianna Cartwright APRN [address] [place] [address] DR HEMATOLOGY AND ONCOLOGY [place], [place] [id number] 12/29/2023 12:00 PM EDT Infusion Hematology Oncology at [address] [phone] documented as of this encounter Visit Diagnoses Not on filedocumented in this encounter Care Teams Telephone Station Repairer Relationship Specialty Start Date End Date Betzaida Avila MD [address] [place] [address] PCP - General Family Medicine 11/30/21 documented as of this encounter
--- OUTSIDE RECORDS SUMMARY | 2023-12-15 01:34 | XMS_ITS | Encounter Summary ---
[place] [address] Care Team Providers Care Glycerin Operator Name Role Phone Betzaida Avila MD Primary Care Provider [phone] Reason for Visit * Reason Comments Skin Check Encounter Details Date Type Department Care Team (Late st Contact Info) Description 11/30/2021 3:45 PM EDT Office Visit Dermatology at [address] [place] [address] Francesco Chen MD [address] [facility] [place] [address] Sebaceous hyperplasia; Nevus Social History Tobacco Use Types Packs/Day Years Used Date Smoking Tobacco: Former Cigarettes 1 10 Smokeless Tobacco: Never Sex and Gender Information Value Date Recorded Sex Assigned at Not on file Gender Identity Not on file Sexual Orientation Not on file documented as of this encounter Progress Notes * Francesco Chen MD - 11/30/2021 3:45 PM EDT Problem: Repeat 2-year skin checkup Prerna follows up after last being seen in 2019. She would like to be seen on an every 2-year basis.She has had prior actinic keratoses treated. She is not sure if she will be able to ski this comingyear. Unfortunately she has lost her . 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 Physical examination reveals a pleasant 71-year-old woman who today has a benign examination of thehead and the neck the chest the back the hands arms forearms thighs and calves. She has no evidenceof any actinic keratoses no lesions which are malignant. Assessment plan: Benign skin examination 1. Patient reassured about her benign skin examination 2. Continue our Q 2-year follow-ups. 3. Continue sun avoidance precautions 4. Return to clinic sooner for new lesion/concerns. CC: Betzaida Avila MD documented in this encounter Plan of Treatment Upcoming Encounters Date Type Department Care Team (Late st Contact Info) Description 12/15/2023 9:00 AM EDT Infusion Hematology Oncology at [address] [phone] 12/26/2023 3:45 PM EDT Office Visit Dermatology at [address] [place] [address] Francesco Chen MD [address] [place] [address], [place] [address] 12/29/2023 11:30 AM EDT Office Visit Hematology/Oncology at [address] [phone] Yousif Garcia MD [facility] [place] [address] Julianna Cartwright APRN [address] [place] [address] DR HEMATOLOGY AND ONCOLOGY [place], [place] [address] 12/29/2023 12:00 PM EDT Infusion Hematology Oncology at [address] [phone] documented as of this encounter Visit Diagnoses Diagnosis Sebaceous hyperplasia Other specified disease of sebaceous glands Nevus Benign neoplasm of skin, site unspecified documented in this encounter Care Teams Glycerin Operator Relationship Specialty Start Date End Date Betzaida Avila MD [address] [place] [address] PCP - General Family Medicine 11/30/21 documented as of this encounter
--- OUTSIDE RECORDS SUMMARY | 2023-12-15 01:34 | XMS_ITS | Encounter Summary ---
Author Organization [facility] [place] [address] Care Team Providers Care Vehicle Inspector Name Role Phone Betzaida Avila MD Primary Care Provider [phone] Encounter Details Date Type Department Care Team (Late st Contact Info) Description 10/31/2023 Interpretation Only Radiology Library at [facility] [place] [phone] Unknown None Social History Tobacco Use Types Packs/Day Years [...] 9:00 AM EDT Infusion Hematology Oncology at [address] [phone] 12/26/2023 3:45 PM EDT Office Visit Dermatology at [address] [place] [phone] Francesco Chen MD [address] [facility], [place] [address] 12/29/2023 11:30 AM EDT Office Visit Hematology/Oncology at [address] [phone] Yousif Garcia MD [facility] [place] [address] Julianna Cartwright APRN [address] [place] [address] DR HEMATOLOGY AND ONCOLOGY [place], [place] [address] 12/29/2023 12:00 PM EDT Infusion Hematology Oncology at [address] [phone] documented as of this encounter Procedures Procedure Name Priority Date/Time Associated Diagnosis Comments FILM LIBRARY STORAGE ONLY CT ABDOMEN AND PELVIS Routine 10/31/2023 9:15 PM EDT documented in this encounter Results * Film Library- Storage Only CT Abdomen & Pelvis (10/31/2023 9:15 PM EDT) 11/01/2023 12:2 8 AM EDT Narrative [facility] - 11/01/2023 12:28 AM EDT This exam is auto-finalizing. It's purpose is for storage only. Unknown IMG FILM LIBRARY ORD ERABLES [place], [place] documented in this encounter Visit Diagnoses Not on filedocumented in this encounter Care Teams Vehicle Inspector Relationship Specialty Start Date End Date Betzaida Avila MD [address] [place] [address] PCP - General Family Medicine 11/30/21 documented as of this encounter
--- OUTSIDE RECORDS SUMMARY | 2023-12-15 01:34 | XMS_ITS | Encounter Summary ---
Author Organization [facility] [place] [address] Care Team Providers Care Software Computer Specialist Name Role Phone Sveta Patterson MD Primary Care Provider [phone] Encounter Details Date Type Department Care Team (Late st Contact Info) Description 04/25/2014 Abstract Cardiology at [address] [phone] Nika Garcia RN Social History Tobacco Use Types Packs/Day Years Used Date Smoking Tobacco: Never Assessed Sex and Gender Information Value Date Recorded Sex Assigned at Not on file Gender Identity Not on file Sexual Orientation Not on file documented as of this encounter Plan of Treatment Upcoming Encounters Date Type Department Care Team (Late st Contact Info) Description 12/15/2023 9:00 AM EDT Infusion Hematology Oncology at [address] [phone] 12/26/2023 3:45 PM EDT Office Visit Dermatology at [address] [phone] Francesco Chen MD [address] [place] [address], [facility] [place], [place] [phone] 12/29/2023 11:30 AM EDT Office Visit Hematology/Oncology at [address] [phone] Yousif Garcia MD [facility] [place] [address] Julianna Cartwright APRN [address] [place] [address] DR HEMATOLOGY AND ONCOLOGY [place], [place] [id number] 12/29/2023 12:00 PM EDT Infusion Hematology Oncology at [address] [phone] documented as of this encounter Visit Diagnoses Not on filedocumented in this encounter Care Teams Software Computer Specialist Relationship Specialty Start Date End Date Sveta Patterson MD [address] [place] [address] PCP - General 04/15/14 09/10/19 documented as of this encounter
--- OUTSIDE RECORDS SUMMARY | 2023-12-15 01:34 | XMS_ITS | Encounter Summary ---
Author Organization [facility] Address [facility] [address] Care Team Providers Care In Processing Instructor Name Role Phone Sumit Patterson MD Primary Care Provider + [phone] Reason for Visit * Reason Comments Establish Care episode of chest bridget n early Apr; mid-chest pressure & across back; thinking it was gas, she tood baking soda & water without relief. Seemed worse when trying to lay down & came to ED. Encounter Details Date Type Department Care Team (Late st Contact Info) Description 04/30/2014 2:00 PM EST Office Visit Cardiology at [address] [phone] Abhishek Staley Jr., MD [address] [place] [address] [phone] Non-cardiac chest pain Social History Tobacco Use Types Packs/Day Years Used Date Smoking Tobacco: Former Cigarettes 1 10 Smokeless Tobacco: Never Sex and Gender Information Value Date Recorded Sex Assigned at Not on file Gender Identity Not on file Sexual Orientation Not on file documented as of this encounter Last Filed Vital Signs Vital Sign Reading Time Taken Comments Blood Pressure 106/60 04/30/2014 1:55 PM EST Pulse 62 04/30/2014 1:55 PM EST regul ar Temperature - - Respiratory Rate - - Oxygen Saturation - - Inhaled Oxygen Concentration - - Weight 78 kg (172 lb) 04/30/2014 1:55 PM EST Height 167.6 cm (5' 6) 04/30/2014 1:55 PM EST Body Mass Index 27.76 04/30/2014 1:55 PM EST documented in this encounter Progress Notes * Abhishek Staley Jr., MD - 04/30/2014 6:19 PM EST Referring PCP: SUMIT PATTERSON MD Cardiology consultation History: Prerna Perez is a 64 y.o. old female seen at the request of SUMIT PATTERSON MD for evaluation of chest pain. She has no prior history of chest pain. In March she developed foot painand cut back her activity. She was started on indomethacin. On April 14 she was stressed and hurrying and developed a ache in her chest rated 3-4/10. There was no associated dyspnea or nausea andshe continued on with her activities. Later in the day she was straining to get snow and ice off her car and had worsening pain associated with dyspnea and nausea. She went into the ER where EKG was negative. Her pain improved significantly with 1 NTG then disappeared with a second, but she developed hypotension. She was hydrated and kept overnight on observation. Troponins were negative and EKG unchanged. K and magnesium were low. She had the stress test below and was discharged. She has had no further pain. Dr. Patterson was concerned the episode could be due to coronary artery spasm. Her foot hurt more after the stress test and she is now on prednisone. No Known Allergies Current Outpatient Prescriptions Medication Sig Dispense Refill ??? PREDNISONE ORAL Take by mouth. Take 40 mg QD for 7 days, then 20 mg for 7 days, then allopurinol 200 mg QD ??? pantoprazole (PROTONIX) 20 mg Tablet, Delayed Release (E.C.) Take 20 mg by mouth daily. ??? nitroGLYcerin (NITROSTAT) 0.4 mg Tablet, Sublingual Place 0.4 mg under the tongue every 5 minutes as needed for Chest pain. ??? levothyroxine (SYNTHROID) 150 mcg Tablet Take 150 mcg by mouth daily. ??? multivitamin Capsule Take 1 capsule by mouth daily. ??? Calcium Carbonate-Vit D3-Min 600 mg calcium- 400 unit Tablet Take 1 tablet by mouth daily. ??? DOCOSAHEXANOIC ACID/EPA (FISH OIL ORAL) Take 600 mg by mouth daily. ??? aspirin 81 mg Tablet, Delayed Release (E.C.) Take 81 mg by mouth daily. No current facility-administered medications for this visit. Patient Active Problem List Diagnosis ??? Chest pain ??? Diverticulosis of both small and large intestine without perforation or abscess without bleeding ??? Gout, unspecified ??? Osteopenia ??? Hypothyroidism Coronary risk factors: Smoking:former Diabetes:no Hypercholesterolemia:no Hypertension:no Family history of premature disease: father with CAD Cardiac tests: ETT 04/2014: Max Exercise: 7:30, 1:30 Stage III Pj 10 METS Max HR: 150> 85 % PMR(131) Max BP: 153/[address] change: none Reason for Termination: fatigue Impression: excellent exercise tolerance, no ischemia, low probability of obstructive coronary artery disease Echo 04/2014: borderline LVH, normal EF, mild AI, trivial MR and TR History Social History ??? Marital Status: Spouse Name: N/A Number of Children: N/A ??? Years of Education: N/A Occupational History ??? Not on file. Social History Main Topics ??? Smoking status: Former Smoker -- 1.00 packs/day for 10 years Types: Cigarettes ??? Smokeless tobacco: Never Used ??? Alcohol Use: Not on file ??? Drug Use: Not on file ??? Sexual Activity: Not on file Other Topics Concern ??? Not on file Social History Narrative ROS: continued foot pain, not able to exercise (frustrated), no difficulty swallowing, no change inbowel or bladder habits, no cough, sputum, fevers, otherwise negative except as above Physical Exam: BP 106/60 Pulse 62 Ht 167.6 cm (5' 6) Wt 78.019 kg (172 lb) BMI 27.77 kg/m2 General: WD, WN Skin: no rash HEENT: no xanthoma Neck: No JVD, HJR, or carotid abnormalities, thyroid normal Lungs: Clear Cor: RR, normal S1, S2. PMI not displaced. 1/6 systolic murmur upper sternum, 1/6 diastolic murmur mid sternum, no rub or gallop Abd: soft, no L/S/K enlargement or bruits Ext: Pulses preserved, equal bilaterally, no edema, cyanosis or clubbing Musculoskeletal: no muscle tenderness, no joint deformities Neuro: grossly nonfocal Psych: normal affect, appropriate EKG: NSR 61, borderline voltage for LVH, normal ST Lab data: none since ER Assessment: 1) atypical chest pain- despite prolonged pain she had no ST change or troponin bump- that makes any cardiac cause, including coronary spasm very unlikely. It is most likely the indomethacin caused esophageal irritation that was exacerbated by increased acid from stress and led to esophageal spasm that resolved with NTG. She should continue the PPI for 4-6 weeks then try stopping it. She can use NTG if she has further pain as it treats esophageal spasm. She can resume full activity as soon as her foot allows 2) AI- mild, asymptomatic. Monitor- consider repeat echo in 4-5 years - sooner if murmur changes Plan: 1) A discussion was held concerning the patient's chief complaints, the presumptive diagnosis(es) and the options for further evaluation and management. Reviewed the assessment above and the recommendations below in detail. 2) medical therapy as above 3) follow up PRN documented in this encounter Plan of Treatment Upcoming Encounters Date Type Department Care Team (Late st Contact Info) Description 12/15/2023 9:00 AM EDT Infusion Hematology Oncology at [address] [phone] 12/26/2023 3:45 PM EDT Office Visit Dermatology at [address] [place] [address] Francesco Chen MD [address] [facility] [place] [address] 12/29/2023 11:30 AM EDT Office Visit Hematology/Oncology at [address] [phone] Yousif Garcia MD [facility] [place] [address] Julianna Cartwright APRN [address] [place] [address] DR HEMATOLOGY AND ONCOLOGY [place], [place] [id number] 12/29/2023 12:00 PM EDT Infusion Hematology Oncology at [address] [phone] documented as of this encounter Visit Diagnoses Diagnosis Non-cardiac chest pain Other chest pain documented in this encounter Care Teams In Processing Instructor Relationship Specialty Start Date End Date Sumit Patterson MD [address] [place] [address] PCP - General 04/15/14 09/10/19 documented as of this encounter
--- OUTSIDE RECORDS SUMMARY | 2023-12-15 01:34 | XMS_ITS | Encounter Summary ---
[place] [address] Care Team Providers Care Associate Professor Of Musicology Name Role Phone Sumit Patterson MD Primary Care Provider + [phone] Reason for Visit * Reason Comments Chest Pain Encounter Details Date Type Department Care Team (Late st Contact Info) Description 04/15/2014 3:30 PM EST Procedure visit [facility] [address] [place] [phone] Abhishek Staley Jr., MD [address] [facility] [place], [place] [phone] Acute chest pain Social History Tobacco Use Types Packs/Day Years Used Date Smoking Tobacco: Never Assessed Sex and Gender Information Value Date Recorded Sex Assigned at Not on file Gender Identity Not on file Sexual Orientation Not on file documented as of this encounter Progress Notes * Abhishek Staley Jr., MD - 04/15/2014 3:52 PM EST ETT negative for ischemia Entered into cardiac documented in this encounter Plan of Treatment Upcoming Encounters Date Type Department Care Team (Late st Contact Info) Description 12/15/2023 9:00 AM EDT Infusion Hematology Oncology at [address] [phone] 12/26/2023 3:45 PM EDT Office Visit Dermatology at [place] [address] [facility] [place] [phone] Francesco Chen MD [address] [facility] [place] [address] 12/29/2023 11:30 AM EDT Office Visit Hematology/Oncology at [address] [phone] Yousif Garcia MD [facility] [place] [address] Julianna Cartwright, [address] HEMATOLOGY AND ONCOLOGY [place], [place] [id number] 12/29/2023 12:00 PM EDT Infusion Hematology Oncology at [address] [phone] documented as of this encounter Procedures Procedure Name Priority Date/Time Associated Diagnosis Comments STRESS TEST, EXERCISE (TREADMILL) Routine 04/15/2014 documented in this encounter Results * Stress Test, Exercise (Treadmill) (04/15/2014) Anatomical Region Laterality Modality Other Narrative 04/15/2014 Exercise Stress Test- Final Report ?? Prerna Perez : 1950 [facility], [address] [facility] [place] [address] OBSERVATION PATIENT Primary Physician: ??SUMIT PATTERSON MD ??Ordering: Michelle Foote MD Indication: chest pain ? Date: 04/15/2014 Summary: Max Exercise: ??7:30, 1:30 ??Stage III ??Pj ?? 10 ?? METS Max HR: ? 150> 85 % PMR(131) Max BP: ??153/[address] change: ??none Reason for Termination: fatigue Impression: excellent exercise tolerance, no ischemia, low probability of obstructive coronary artery disease Details: Medication: no cardiac Risk Factors: ?? Family History, Cholesterol Resting EKG: NSR 66, normal ?Resting BP: 122/77 Exercise per Pj protocol Arrhythmias: none Recovery: ??BP ?? -> ?? 143/75 ?HR ?? -> 78 Arrhythmias: none Electronically signed: Abhishek Staley Jr, MD [facility] Historical Provider MD [facility] ORDERABLES documented in this encounter Visit Diagnoses Diagnosis Acute chest pain Chest pain, unspecified documented in this encounter Care Teams Associate Professor Of Musicology Relationship Specialty Start Date End Date Sumit Patterson MD [address] [place] [address] PCP - General 04/15/14 09/10/19 documented as of this encounter
--- OUTSIDE RECORDS SUMMARY | 2023-12-15 01:34 | XMS_ITS | Encounter Summary ---
Author Organization [facility] [place] [address] Care Team Providers Care Health Associate Name Role Phone Marion Rice Primary Care Pro vider Reason for Visit * Reason Comments Skin Check * Consultation (Routine) - Closed Specialty Diagnoses / Procedures Referred By Elisha fishman Referred To Contact Dermatology Diagnoses Encounter for general adult medical examination with abnormal findings Well adult exam with abnormal findings Procedures Consult Marion Rice PA [address] [place] [address] Francesco Chen MD [address] [facility] [place] [address] Referral ID Status Reason Start Date Expiration Date V isits Requested Visits Authorized [id number] Closed Consult, Test & Treat PCP Updated and/or Approved 04/01/2019 09/30/2019 6 6 Encounter Details Date Type Department Care Team (Late st Contact Info) Description 11/29/2019 10:00 AM EDT Office Visit Dermatology at [address] [phone] Francesco Chen MD [address] [facility] [place] [address] Nevus Social History Tobacco Use Types Packs/Day Years Used Date Smoking Tobacco: Former Cigarettes 1 10 Smokeless Tobacco: Never Sex and Gender Information Value Date Recorded Sex Assigned at Not on file Gender Identity Not on file Sexual Orientation Not on file documented as of this encounter Progress Notes * Francesco Chen MD - 11/29/2019 10:00 AM EDT Problem: 1. 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 For many years she and her bent time between the [facility] in [place] and then moved up here full-time about 10 years ago. She was previously seen by a hot molder in [place] by Dr. Claudy Suazo and fortunately except for an actinic keratosis and had no lesions of concern noted over the course of 4 years. He then recommend that she just be seen on a every 2 year basis. Physical examination reveals a pleasant 69-year-old woman who has benign examination of the head and the neck the chest the back the hands the arms forearms thighs and the calves. There is no evidence of any malignant lesions on careful examination today. Assessment plan: Benign skin examination 1. Patient reassured about her benign skin examination today 2. Would recommend that we continue on an every 2-year basis for routine skin checkups 3. Continue sun avoidance precautions 4. Return to clinic sooner for new lesion/concerns. CC: STANISLAW Peralta documented in this encounter Plan of Treatment Upcoming Encounters Date Type Department Care Team (Late st Contact Info) Description 12/15/2023 9:00 AM EDT Infusion Hematology Oncology at [address] [phone] 12/26/2023 3:45 PM EDT Office Visit Dermatology at [place] [address] [facility] [place] [phone] Francesco Chen MD [address] [facility] [address], [place] [address] 12/29/2023 11:30 AM EDT Office Visit Hematology/Oncology at [address] [phone] Yousif Garcia MD [facility] [place] [address] Julianna Cartwright APRN [address] [place] [address] DR HEMATOLOGY AND ONCOLOGY [place], [place] [id number] 12/29/2023 12:00 PM EDT Infusion Hematology Oncology at [address] [phone] documented as of this encounter Visit Diagnoses Diagnosis Nevus Benign neoplasm of skin, site unspecified documented in this encounter Care Teams Health Associate Relationship Specialty Start Date End Date Marion Rice PA [address] [place] [address] PCP - General Family Medicine 11/29/19 11/29/21 documented as of this encounter
--- OUTSIDE RECORDS SUMMARY | 2023-12-15 01:34 | XMS_ITS | Encounter Summary ---
Author Organization [facility] [place] [address] Care Team Providers Care Linen Keeper Name Role Phone Betzaida Avila MD Primary Care Provider [phone] Encounter Details Date Type Department Care Team (Late st Contact Info) Description 10/31/2023 9:15 PM EDT Ancillary Procedure Radiology Library at [facility] [place] [phone] Unknown None Social History Tobacco Use Types [...] AM EDT Infusion Hematology Oncology at [address] [phone] 12/26/2023 3:45 PM EDT Office Visit Dermatology at [address] [place] [phone] Francesco Chen MD [address] [facility] [place] [address] 12/29/2023 11:30 AM EDT Office Visit Hematology/Oncology at [address] [phone] Yousif Garcia MD [facility] [place] [address] Julianna Cartwright APRN [address] [place] [address] DR HEMATOLOGY AND ONCOLOGY [place], [place] [address] 12/29/2023 12:00 PM EDT Infusion Hematology Oncology at [address] [phone] documented as of this encounter Procedures Procedure Name Priority Date/Time Associated Diagnosis Comments FILM LIBRARY STORAGE ONLY CT ABDOMEN AND PELVIS Routine 10/31/2023 9:15 PM EDT documented in this encounter Results * Film Library- Storage Only CT Abdomen & Pelvis (10/31/2023 9:15 PM EDT) 11/01/2023 12:2 8 AM EDT Narrative [facility] - 11/01/2023 12:28 AM EDT This exam is auto-finalizing. It's purpose is for storage only. Unknown IMG FILM LIBRARY ORD ERABLES [place], [place] documented in this encounter Visit Diagnoses Not on filedocumented in this encounter Care Teams Linen Keeper Relationship Specialty Start Date End Date Betzaida Avila MD [address] [place] [address] PCP - General Family Medicine 11/30/21 documented as of this encounter
--- OUTSIDE RECORDS SUMMARY | 2023-12-15 01:34 | XMS_ITS | Encounter Summary ---
Author Organization [facility] [place] [address] Care Team Providers Care Cigar Binder Name Role Phone Betzaida Avila MD Primary Care Provider [phone] Encounter Details Date Type Department Care Team (Late st Contact Info) Description 11/01/2023 11:45 AM EDT Ancillary Procedure Radiology Library at [facility] [place] [place] [phone] Unknown None Social History Tobacco Use Types [...] AM EDT Infusion Hematology Oncology at [address] [phone] 12/26/2023 3:45 PM EDT Office Visit Dermatology at [address] [place] [phone] Francesco Chen MD [address] [facility] [place] [address] 12/29/2023 11:30 AM EDT Office Visit Hematology/Oncology at [address] [phone] Yousif Garcia MD [facility] [place] [address] Julianna Cartwright APRN [address] [place] [address] DR HEMATOLOGY AND ONCOLOGY [place], [place] [address] 12/29/2023 12:00 PM EDT Infusion Hematology Oncology at [address] [phone] documented as of this encounter Procedures Procedure Name Priority Date/Time Associated Diagnosis Comments FILM LIBRARY STORAGE ONLY MR ABDOMEN Routine 11/01/2023 11:45 AM EDT documented in this encounter Results * Film Library- Storage Only MR Abdomen (11/01/2023 11:45 AM EDT) 11/01/2023 4:10 PM EDT Narrative [facility] - 11/01/2023 4:11 PM EDT This exam is auto-finalizing. It's purpose is for storage only. Unknown IMG FILM LIBRARY ORD ERABLES [place], [place] documented in this encounter Visit Diagnoses Not on filedocumented in this encounter Care Teams Cigar Binder Relationship Specialty Start Date End Date Betzaida Avila MD [address] [place] [address] PCP - General Family Medicine 11/30/21 documented as of this encounter
--- OUTSIDE RECORDS SUMMARY | 2023-12-15 01:34 | XMS_ITS | Encounter Summary ---
Author Organization [facility] [place] [address] Care Team Providers Care Exploitation Analyst Name Role Phone Betzaida Avila MD Primary Care Provider [phone] Encounter Details Date Type Department Care Team (Late st Contact Info) Description 11/01/2023 Interpretation Only Radiology Library at [facility] [place] [phone] Unknown None Social History Tobacco Use Types [...] 9:00 AM EDT Infusion Hematology Oncology at [address] [phone] 12/26/2023 3:45 PM EDT Office Visit Dermatology at [address] [place] [phone] Francesco Chen MD [address] [facility] [place] [address] 12/29/2023 11:30 AM EDT Office Visit Hematology/Oncology at [address] [phone] Yousif Garcia MD [facility] [place] [address] Julianna Cartwright APRN [address] [place] [address] DR HEMATOLOGY AND ONCOLOGY [place], [place] [id number] 12/29/2023 12:00 PM EDT Infusion Hematology Oncology at [address] [phone] documented as of this encounter Procedures Procedure Name Priority Date/Time Associated Diagnosis Comments FILM LIBRARY STORAGE ONLY MR ABDOMEN Routine 11/01/2023 11:45 AM EDT documented in this encounter Results * Film Library- Storage Only MR Abdomen (11/01/2023 11:45 AM EDT) 11/01/2023 4:10 PM EDT Narrative [facility] [place]NOTE 2[facility] - 11/01/2023 4:11 PM EDT This exam is auto-finalizing. It's purpose is for storage only. Unknown IMG FILM LIBRARY ORD ERABLES [place], [place] documented in this encounter Visit Diagnoses Not on filedocumented in this encounter Care Teams Exploitation Analyst Relationship Specialty Start Date End Date Betzaida Avila MD [address] [place] [address] PCP - General Family Medicine 11/30/21 documented as of this encounter
--- OUTSIDE RECORDS SUMMARY | 2023-12-15 01:34 | XMS_ITS | Encounter Summary ---
Author Organization [facility] [place] [address] Care Team Providers Care Machine Ii Engraver Name Role Phone Sveta Patterson MD Primary Care Provider [phone] Encounter Details Date Type Department Care Team (Late Contact Info) Description 04/23/2014 4:45 PM EST Ancillary Appointment [facility] [address] [place] [phone] Abhishek Staley Jr., MD [address] [place] [address] Social History Tobacco Use Types Packs/Day Years [...] AM EDT Infusion Hematology Oncology at [address] [phone] 12/26/2023 3:45 PM EDT Office Visit Dermatology at [place] [address] [place] [phone] Francesco Chen MD 580 [facility] [place] [address] 12/29/2023 11:30 AM EDT Office Visit Hematology/Oncology at [address] [phone] Yousif Garcia MD [facility] [place] [address] Julianna Cartwright APRN [address] [place] [address] DR HEMATOLOGY AND ONCOLOGY [place], [place] [id number] 12/29/2023 12:00 PM EDT Infusion Hematology Oncology at [address] [phone] documented as of this encounter Visit Diagnoses Not on filedocumented in this encounter Care Teams Machine Ii Engraver Relationship Specialty Start Date End Date Sveta Patterson MD [address] [place] [address] PCP - General 04/15/14 09/10/19 documented as of this encounter
--- OUTSIDE RECORDS SUMMARY | 2023-12-15 01:34 | XMS_ITS | Encounter Summary ---
Author Organization [facility] [place] [address] Care Team Providers Care Recordak Operator Name Role Phone Betzaida Avila MD Primary Care Provider [phone] Encounter Details Date Type Department Care Team (Late st Contact Info) Description 11/01/2023 Telephone [place] [phone] Kathy Pena MD [facility] [place] [address] Social History Tobacco Use Types Packs/Day Years Used Date Smoking Tobacco: Former Cigarettes 1 10 Smokeless Tobacco: Never Sex and Gender Information Value Date Recorded Sex Assigned at Not on file Gender Identity Not on file Sexual Orientation Not on file documented as of this encounter Miscellaneous Notes * Telephone Encounter - Kathy Pena MD - 11/01/2023 4:59 PM EDT Images from the original note were not included. [facility]OLOG[facility] CALL Name: Prerna Perez Date: 11/01/2023 Time: 4:59 PM Referring Location: [facility] Referring Provider: Kannan Humphrey MD 73yo F who presented to [facility] with new onset dizziness and dark urine, found to have abnormal LFTs. We are consulted to consider here and back procedure. Vitals: Afebrile HDS Labs: Tbili 3.7 --> 4.3 --> 4.5 ALT 388 AST 199 Alk phos 652 Lipase 395 Imaging: CT A/P: Dilated CBD and intrahepatic dilatation Gallbladder wall thickening MRCP: No choledocholithiasis, no defined mass. Distal CBD and PD obstruction, CBD 13mm. Interesting presentation, and certainly warrants addn investigation. No sick contacts, no fevers, no signs of viral illness. Per OSH, PCP sent viral panel that was negative. Will plan to review images with advanced endoscopy team, do wonder if missing stone vs mass. Can consider EUS +/- ERCP if warranted. Will plan to check in in AM to see if deemed appropriate and if capacity; they will keep pt NPO at 12a. This is not an official consult, as my recommendations are limited by my inability to interview andexamine the patient as well as personally review the medical record, imaging, and laboratory findings. Kathy Pena MD PGY-6, Gastroenterology documented in this encounter Plan of Treatment Upcoming Encounters Date Type Department Care Team (Late st Contact Info) Description 12/15/2023 9:00 AM EDT Infusion Hematology Oncology at [address] [phone] 12/26/2023 3:45 PM EDT Office Visit Dermatology at [address] [place] [address] Francesco Chen MD [address] [facility] [place] [address] 12/29/2023 11:30 AM EDT Office Visit Hematology/Oncology at [address] [phone] Yousif Garcia MD [facility] [place] [address] Julianna Cartwright APRN [address] [place] [address] DR HEMATOLOGY AND ONCOLOGY [place], [place] [id number] 12/29/2023 12:00 PM EDT Infusion Hematology Oncology at [address] [phone] documented as of this encounter Visit Diagnoses Not on filedocumented in this encounter Care Teams Recordak Operator Relationship Specialty Start Date End Date Betzaida Avila MD [address] [place] [address] PCP - General Family Medicine 11/30/21 documented as of this encounter
[2023-12-15] MEDS: Normal Saline Flush 10 ML SYR IVP (08:19)
[2023-12-15 08:53] LABS: Abs Immature Grans 0.02 10^3/uL (0.0-0.06); Absolute Basophil Count 0.05 10^3/uL (0.0-0.2); Absolute Eosinophil Count 0.06 10^3/uL (0.0-0.7); Absolute Lymphocyte Count 1.43 10^3/uL (1.2-3.4); Absolute Monocyte Count 0.45 10^3/uL (0.1-0.8); Absolute Neutrophil Count 1.82 10^3/uL (1.2-6.7); Basophils % 1.3 %; Eosinophils % 1.6 %; HCT 36.4 % (36.0-46.0); HGB 12.3 g/dL (11.2-15.7); Immature Grans % 0.5 %; Lymphocytes % 37.3 %; MCHC 33.8 % (32.0-36.0); MCV 104 fL (80-95); Monocytes % 11.7 %; Neutrophils % 47.6 %; Platelet Count 279 10^3/uL (130-400); RBC 3.51 10^6/uL (3.93-5.22); RDW 12.5 % (11.7-14.6); RDW-SD 46.8 fL; WBC 3.83 10^3/uL (4.4-10.8)
[2023-12-15 09:17] LABS: ALT 48 U/L (14-59); AST 26 U/L (15-37); Albumin 3.5 g/dL (3.4-5.0); Alkaline Phosphatase 93 U/L (46-116); Anion Gap 8.9 mmol/L (3-11); BUN 11 mg/dL (7-18); Bilirubin, Total 0.55 mg/dL (0.2-1.0); CO2 27.1 mmol/L (21.0-32.0); CREATININE 0.9 mg/dL (0.55-1.02); Calcium 9.1 mg/dL (8.5-10.1); Chloride 107 mmol/L (98-107); Estimated GFR 66.67 (mL/min/1.73m2); Glucose 119 mg/dL (74-106); Potassium 3.9 mmol/L (3.5-5.1); Sodium 143 mmol/L (136-145)
[2023-12-15 22:49] LABS: CA 19-9 40 U/mL (<35)
[2023-12-17] MEDS: Heparin 500 UNITS/5 ML SYRINGE IV (10:57)
[2023-12-17] MEDS: Normal Saline Flush 10 ML SYR IVP (10:57)
[2023-12-29] MEDS: Normal Saline Flush 10 ML SYR IVP (10:52)
[2023-12-29 11:14] LABS: Abs Immature Grans 0.01 10^3/uL (0.0-0.06); Absolute Basophil Count 0.05 10^3/uL (0.0-0.2); Absolute Eosinophil Count 0.18 10^3/uL (0.0-0.7); Absolute Lymphocyte Count 1.58 10^3/uL (1.2-3.4); Absolute Monocyte Count 0.62 10^3/uL (0.1-0.8); Absolute Neutrophil Count 1.31 10^3/uL (1.2-6.7); Basophils % 1.3 %; Eosinophils % 4.8 %; HCT 35.1 % (36.0-46.0); HGB 11.9 g/dL (11.2-15.7); Immature Grans % 0.3 %; Lymphocytes % 42.1 %; MCH 35.6 pg (27.0-33.0); MCHC 33.9 % (32.0-36.0); MCV 105 fL (80-95); MPV 10.1 fL (8.0-11.0); Monocytes % 16.5 %; Platelet Count 186 10^3/uL (130-400); RBC 3.34 10^6/uL (3.93-5.22); RDW 13.2 % (11.7-14.6); RDW-SD 50.3 fL; WBC 3.75 10^3/uL (4.4-10.8)
[2023-12-29 11:27] LABS: Diff Comment RBC Morph Reviewed
[2023-12-29 11:28] LABS: ALT 41 U/L (14-59); AST 24 U/L (15-37); Albumin 3.4 g/dL (3.4-5.0); Alkaline Phosphatase 89 U/L (46-116); Anion Gap 9.6 mmol/L (3-11); BUN 10 mg/dL (7-18); Bilirubin, Total 0.52 mg/dL (0.2-1.0); CO2 26.4 mmol/L (21.0-32.0); CREATININE 0.9 mg/dL (0.55-1.02); Calcium 8.9 mg/dL (8.5-10.1); Chloride 107 mmol/L (98-107); Estimated GFR 66.67 (mL/min/1.73m2); Glucose 121 mg/dL (74-106); Macrocytosis 1+; Potassium 4.1 mmol/L (3.5-5.1); Sodium 143 mmol/L (136-145); Total Protein 7.1 g/dL (6.4-8.2)
[2023-12-29 20:12] LABS: CA 19-9 49 U/mL (<35)
[2023-12-31] MEDS: Heparin 500 UNITS/5 ML SYRINGE IV (13:26)
[2023-12-31] MEDS: Normal Saline Flush 10 ML SYR IVP (13:26)
== END 2024-01-11 23:59 | disposition home or self-care (01) ==
LOC: INF 03:51
PROVIDERS: PCP Family Medicine; Visit Provider Internal Medicine Hematology & Oncology
DX: C24.1 Malignant neoplasm of ampulla of Vater (principal); Z45.2 Encounter for adjustment and management of vascular access device
CPT/HCPCS: 36591; 80053; 96523; 85025; 86301; J1642

== ENCOUNTER 2024-01-12 01:42 | Outpatient (RCR) | payer MEDICARE, OTHER, SELFPAY ==
[2024-01-12 10:18] LABS: Abs Immature Grans 0.01 10^3/uL (0.0-0.06); Absolute Basophil Count 0.05 10^3/uL (0.0-0.2); Absolute Eosinophil Count 0.05 10^3/uL (0.0-0.7); Absolute Lymphocyte Count 1.41 10^3/uL (1.2-3.4); Absolute Monocyte Count 0.73 10^3/uL (0.1-0.8); Absolute Neutrophil Count 0.95 10^3/uL (1.2-6.7); Basophils % 1.6 %; Eosinophils % 1.6 %; HCT 33.4 % (36.0-46.0); HGB 11.4 g/dL (11.2-15.7); Immature Grans % 0.3 %; Lymphocytes % 44.1 %; MCH 35.4 pg (27.0-33.0); MCHC 34.1 % (32.0-36.0); MCV 104 fL (80-95); MPV 9.6 fL (8.0-11.0); Monocytes % 22.8 %; Platelet Count 174 10^3/uL (130-400); RBC 3.22 10^6/uL (3.93-5.22); RDW 13.4 % (11.7-14.6); RDW-SD 50.3 fL
[2024-01-12] MEDS: Normal Saline Flush 10 ML SYR IVP (10:18)
[2024-01-12 10:35] LABS: ALT 33 U/L (14-59); AST 21 U/L (15-37); Albumin 3.4 g/dL (3.4-5.0); Alkaline Phosphatase 96 U/L (46-116); Anion Gap 8.8 mmol/L (3-11); BUN 19 mg/dL (7-18); Bilirubin, Total 0.47 mg/dL (0.2-1.0); CO2 27.2 mmol/L (21.0-32.0); CREATININE 0.9 mg/dL (0.55-1.02); Calcium 9.1 mg/dL (8.5-10.1); Chloride 106 mmol/L (98-107); Estimated GFR 66.67 (mL/min/1.73m2); Glucose 117 mg/dL (74-106); Potassium 4.1 mmol/L (3.5-5.1); Sodium 142 mmol/L (136-145); Total Protein 6.9 g/dL (6.4-8.2)
[2024-01-12 11:04] LABS: Neutrophils % 29.6 %
[2024-01-12 23:43] LABS: CA 19-9 27 U/mL (<35)
== END 2024-02-10 23:59 | disposition home or self-care (01) ==
LOC: INF 01:42
PROVIDERS: PCP Family Medicine; Visit Provider Internal Medicine Hematology & Oncology
DX: C24.1 Malignant neoplasm of ampulla of Vater (principal); Z45.2 Encounter for adjustment and management of vascular access device
CPT/HCPCS: 36591; 80053; 85025; 86301

== ENCOUNTER 2024-03-09 00:22 | Outpatient (RCR) | payer MEDICARE, OTHER, SELFPAY ==
[2024-03-09 13:26] VITALS: BP 107/67; PULSE 76; RESP 16; TEMP 36.8; O2SAT 95
[2024-03-09] MEDS: Normal Saline Flush 10 ML SYR IVP (13:39)
== END 2024-03-12 23:59 | disposition home or self-care (01) ==
LOC: INF 00:22
PROVIDERS: PCP Family Medicine; Visit Provider Internal Medicine Hematology & Oncology
DX: C24.1 Malignant neoplasm of ampulla of Vater (principal)
CPT/HCPCS: 96372; 96523; J2506